=== PATIENT | male | born 1955 | race Hispanic/Latino ===

== ENCOUNTER 2017-10-18 16:18 | Emergency (ER) | payer MEDICARE ==
[2017-10-18 17:21] LABS: Basophils # (Auto) 0.1 K/mm3 (0.0-0.1); Basophils % (Auto) 1.1 % (0.0-1.8); Eosinophils # (Auto) 0.5 K/mm3 (0.0-0.4); Eosinophils % (Auto) 4.3 % (0.0-4.3); Hematocrit 40.3 % (35.5-45.6); Hemoglobin 13.3 gm/dl (11.8-15.2); Lymphocytes # (Auto) 2.2 K/mm3 (1.2-5.4); Lymphocytes % (Auto) 20.8 % (13.4-35.0); Mean Corpuscular HGB Conc 33 % (32-34); Mean Corpuscular Hemoglobin 29 pg (28-32); Mean Corpuscular Volume 88 fl (84-94); Monocytes % (Auto) 9.2 % (0.0-7.3); Platelet Count 308 K/mm3 (140-440); Red Blood Count 4.56 M/mm3 (3.65-5.03); Red Cell Distribution Width 13.7 % (13.2-15.2)
--- NOTE | 2017-10-18 17:21 | Emergency Department Report ---
ED Seizure HPI - General Chief Complaint: Seizure Stated Complaint: SEIZURE Time Seen by Provider: 10/18/17 17:08 Source: EMS, RN notes reviewed Mode of arrival: Stretcher Limitations: Altered Mental Status - History of Present Illness Initial Comments: 61 yo male who comes in today from the long term due to a seizure disorder. When asked about the seizure, the patient denies any seizures. He states that he is fine. He denies any complaints. MD Complaint: seizure -: This afternoon Witnessed:: Yes Trauma: No Seizure History: known seizure disorder Place: other (long term ) Possible Precipitating Event: none Associated Symptoms: denies other symptoms Treatments Prior to Arrival: none - Related Data Home Medications Medication Instructions Recorded Confirmed Last Taken Acetaminophen [Acetaminophen 8 650 mg PO Q6H PRN 10/18/17 10/18/17 Unknown Hour] Ondansetron [Zofran TAB] 4 mg PO Q8HR PRN 10/18/17 10/18/17 Unknown Previous Rx's Medication Instructions Recorded Last Taken Type levETIRAcetam [Keppra TAB] 1,000 mg PO BID #60 tab 10/06/17 Unknown Rx Docusate Sodium [Colace] 100 mg PO BID PRN #60 capsule 10/12/17 Unknown Rx Famotidine [Pepcid] 20 mg PO BID #30 tablet 10/12/17 Unknown Rx Polyethylene Glycol 3350 [Miralax 17 gm PO QDAY #60 packet 10/12/17 Unknown Rx 3350] hydrALAZINE [Apresoline TAB] 100 mg PO Q4HR PRN #60 tab 10/12/17 Unknown Rx Allergies Allergy/AdvReac Type Severity Reaction Status Date / Time Penicillins Allergy Unknown Verified 09/24/14 06:21 chocolate flavor AdvReac Rash Verified 10/07/14 16:47 peanut AdvReac Rash Verified 10/07/14 16:47 ED Review of Systems ROS: Stated complaint: SEIZURE Other details as noted in HPI Constitutional: denies: chills, fever Eyes: denies: eye pain, eye discharge, vision change ENT: denies: ear pain, throat pain Respiratory: denies: cough, shortness of breath, wheezing Cardiovascular: denies: chest pain, palpitations Endocrine: no symptoms reported Gastrointestinal: denies: abdominal pain, nausea, diarrhea Genitourinary: denies: urgency, dysuria Musculoskeletal: denies: back pain, joint swelling, arthralgia Skin: other (bruise-right forehead?) Neurological: denies: headache, weakness, paresthesias Psychiatric: denies: anxiety, depression Hematological/Lymphatic: denies: easy bleeding, easy bruising ED Past Medical Hx - Past Medical History Previous Medical History?: Yes Hx Hypertension: Yes Hx CVA: Yes (right sided weakness) Hx Deep Vein Thrombosis: No Hx Liver Disease: No Hx Renal Disease: No Hx Arthritis: Yes Hx Seizures: No Hx Asthma: Yes Hx COPD: Yes Additional medical history: Patient is not a good historian. Lives alone. Subdural hematoma - Surgical History Past Surgical History?: Yes Hx Pacemaker: No Hx Internal Defibrillator: No Additional Surgical History: craniotomy, tracheostomy - Social History Smoking Status: Never Smoker Substance Use Type: None - Medications Home Medications: Home Medications Medication Instructions Recorded Confirmed Last Taken Type levETIRAcetam [Keppra TAB] 1,000 mg PO BID #60 tab 10/06/17 10/18/17 Unknown Rx Docusate Sodium [Colace] 100 mg PO BID PRN #60 capsule 10/12/17 10/18/17 Unknown Rx Famotidine [Pepcid] 20 mg PO BID #30 tablet 10/12/17 10/18/17 Unknown Rx Polyethylene Glycol 3350 [Miralax 17 gm PO QDAY #60 packet 10/12/17 10/18/17 Unknown Rx 3350] hydrALAZINE [Apresoline TAB] 100 mg PO Q4HR PRN #60 tab 10/12/17 10/18/17 Unknown Rx Acetaminophen [Acetaminophen 8 650 mg PO Q6H PRN 10/18/17 10/18/17 Unknown History Hour] Ondansetron [Zofran TAB] 4 mg PO Q8HR PRN 10/18/17 10/18/17 Unknown History ED Physical Exam - General Limitations: Altered Mental Status General appearance: alert, in no apparent distress - Head Head exam: Present: other (bruising-forehead (acute vs chronic?)) - Eye Eye exam: Present: normal appearance - ENT ENT exam: Present: mucous membranes moist - Neck Neck exam: Present: normal inspection - Respiratory Respiratory exam: Present: normal lung sounds bilaterally. Absent: respiratory distress - Cardiovascular Cardiovascular Exam: Present: regular rate, normal rhythm. Absent: systolic murmur, diastolic murmur, rubs, gallop - GI/Abdominal GI/Abdominal exam: Present: soft - Extremities Exam Extremities exam: Present: normal inspection - Back Exam Back exam: Present: normal inspection - Neurological Exam Neurological exam: Present: alert - Psychiatric Psychiatric exam: Present: normal affect - Skin Skin exam: Present: warm ED Course Vital Signs 10/18/17 10/18/17 10/18/17 16:27 16:30 16:46 Temperature 98.1 F Pulse Rate 91 H 90 88 Respiratory 18 17 24 Rate Blood Pressure 102/57 Blood Pressure 102/57 [Left] O2 Sat by Pulse 94 94 94 Oximetry 10/18/17 10/18/17 10/18/17 17:00 17:16 17:30 Temperature Pulse Rate 94 H 88 84 Respiratory 31 H 25 H 24 Rate Blood Pressure 102/57 110/63 110/63 Blood Pressure [Left] O2 Sat by Pulse 94 95 96 Oximetry 10/18/17 10/18/17 10/18/17 17:46 18:00 18:05 Temperature Pulse Rate 85 87 Respiratory 22 22 18 Rate Blood Pressure 101/56 101/56 Blood Pressure [Left] O2 Sat by Pulse 95 93 Oximetry 10/18/17 10/18/17 10/18/17 18:16 18:30 18:46 Temperature Pulse Rate 84 80 78 Respiratory 22 23 20 Rate Blood Pressure 112/74 112/74 108/62 Blood Pressure [Left] O2 Sat by Pulse 95 95 96 Oximetry 10/18/17 19:00 Temperature Pulse Rate 77 Respiratory 22 Rate Blood Pressure 107/52 Blood Pressure [Left] O2 Sat by Pulse 96 Oximetry - Reevaluation(s) Reevaluation #1: 10/18/17 18:22 I spoke with the patient's caregivers. The patient is scheduled to see Neurology on Friday of next week. Suspect jerking activity isn't seizures. Suspect tics secondary to meds or brain injury. Back to assisted living after ivf's and keppra. ED Medical Decision Making - Lab Data Result diagrams: 10/18/17 17:08 10/18/17 17:08 - EKG Data -: EKG Interpreted by [facility] EKG shows normal: sinus rhythm Rate: normal (88) - EKG Data When compared to previous EKG there are: previous EKG unavailable Interpretation: nonspecific ST-T wave diana - Radiology Data Radiology results: report reviewed (No acute pathology ) - Medical Decision Making History of seizure disorder History of brain injury Tics/jerks? Hyponatremia - Differential Diagnosis History of seizure disorder, history of brain injury, tics/jerks, hyponatre Critical care attestation.: If time is entered above; I have spent that time in minutes in the direct care of this critically ill patient, excluding procedure time. ED Disposition Clinical Impression: Hyponatremia, Seizure disorder, Subdural hematoma Disposition: DC/TX-70 ANOTHER TYPE HLTHCARE Is pt being admited?: No Does the pt Need Aspirin: No Condition: Stable Instructions: Hyponatremia (ED), Recurrent Seizures Adult (ED) Additional Instructions: Please speak with the medical office clerk or patient's provider in regards to a medicine for the occasional tics vs jerks. My assessment is that the tics vs jerks aren't seizure related activity. Please make certain that the patient sees Neurology on next week. Follow up with your provider as scheduled. Referrals: DICK JOHNSON MD [Primary Care Provider] - 3-5 Days Time of Disposition: 19:46
[2017-10-18 17:52] LABS: Creatine Kinase MB 2.4 ng/mL (0.0-4.0)
[2017-10-18 17:53] LABS: Alanine Aminotransferase 18 units/L (7-56); Albumin 3.7 g/dL (3.9-5); BUN/Creatinine Ratio 18; Blood Urea Nitrogen 16 mg/dL (9-20); Calcium 8.2 mg/dL (8.4-10.2); Hemolysis Index 7
[2017-10-18] MEDS ORDERED: NACL 0.9% 500 ML 500 ML IV ONE (18:02)
[2017-10-18] MEDS ORDERED: KEPPRA 1,000 MG in NACL 0.9% 100 ML IV ONE (18:09)
--- NOTE | 2017-10-18 18:19 | XRay Report ---
FINAL REPORT EXAM: XR WRIST 3+V LT HISTORY: wrist deformity TECHNIQUE: AP, lateral, and oblique views of the left wrist PRIORS: None. FINDINGS: Significant erosion of the scaphoid and lunate bones is seen, probably posttraumatic. On the lateral view, the radius maintains articulation with the capitate but there is significant narrowing of the radiocarpal joint which are displaced in a volar direction. Overlying soft tissue swelling is seen. An IV is in place along the dorsal distal forearm. IMPRESSION: Deformity of the carpal bones, probably posttraumatic in etiology involving the scaphoid and lunate bones. There is significant narrowing of the radiocarpal joint with displacement of the distal row of carpals in the volar direction. CT may be of further help.
--- NOTE | 2017-10-18 18:21 | XRay Report ---
FINAL REPORT EXAM: XR CHEST 1V AP HISTORY: chest pain TECHNIQUE: AP portable view of the chest PRIORS: CXR 10/06/2017 FINDINGS: Lines, tubes, and devices: N/A Lungs and pleura: Trachea is normal in position. Elevation of the left hemidiaphragm is unchanged. Lungs are clear of infiltrate, pleural effusion, vascular congestion, or pneumothorax. No change. Cardiomediastinal silhouette: Cardiac and mediastinal silhouettes are unremarkable. Other: Bony structures are intact. IMPRESSION: No acute cardiopulmonary process seen. No change.
[2017-10-18] MEDS ORDERED: NACL 0.9% 1000 ML 1,000 ML IV ONE (18:24)
[2017-10-18] MEDS ORDERED: NACL 0.9% 1000 ML 1,000 ML ONE (18:24)
[2017-10-18] MEDS ORDERED: KEPPRA 1,000 MG/NS 0.75% 100ML 1,000 MG/100 ML BAG IV ONE (19:00)
[2017-10-18 19:06] VITALS: BP 107/52
== END 2017-10-18 20:00 | disposition other institution (70) ==
LOC: ED 16:18
DX: I62.00 Nontraumatic subdural hemorrhage, unspecified (principal); G40.909 Epilepsy, unspecified, not intractable, without status epilepticus; E87.1 Hypo-osmolality and hyponatremia; Z86.73 Personal history of transient ischemic attack (TIA), and cerebral infarction without residual deficits; J45.909 Unspecified asthma, uncomplicated; I10 Essential (primary) hypertension; Z88.0 Allergy status to penicillin; Z91.010 Allergy to peanuts; Z91.018 Allergy to other foods
CPT/HCPCS: 36415; 71045; 73110; 80053; 82550; 82553; 83735; 84484; 85025; 93005; 93010; 96374; 99285; J1953; J7030; 96365

== ENCOUNTER 2018-03-06 22:32 | Inpatient (IN) | payer MEDICARE ==
[2018-03-06] MEDS ORDERED: D50W (25GM) Vial IV ONE (22:45)
[2018-03-06] MEDS ORDERED: D50W (25GM) Syringe IV ONE (22:47)
[2018-03-06] MEDS ORDERED: KEPPRA 1,000 MG/NS 0.75% 100ML 1,000 MG/100 ML BAG IV ONE (22:59)
[2018-03-06] MEDS ORDERED: NACL 0.9% 500 ML 500 ML IV ONE (23:00)
--- NOTE | 2018-03-06 23:03 | Emergency Department Report ---
HPI - General Chief Complaint: Seizure Time Seen by Provider: 03/06/18 22:54 - HPI HPI: 62-year-old male presents to the emergency department by EMS from [facility] with complaint of seizures. The patient does have a history of previous seizures and is on Keppra. He had some seizure-like activity just as I got to the hospital and received 2 mg of Ativan. Patient does have a history of previous subdural hematoma. He has right-sided hemiparesis. Currently the patient is nonverbal for me and therefore is a poor historian. He was found have a blood sugar of 55 by EMS and was given some oral glucose. The blood sugar was only up to 60 when he arrived here. ED Past Medical Hx - Past Medical History Previous Medical History?: Yes Hx Hypertension: Yes Hx CVA: Yes (right sided weakness) Hx Deep Vein Thrombosis: No Hx Liver Disease: No Hx Renal Disease: No Hx Arthritis: Yes Hx Seizures: No Hx Asthma: Yes Hx COPD: Yes Additional medical history: Patient is not a good historian. Lives alone. Subdural hematoma - Surgical History Past Surgical History?: Yes Hx Pacemaker: No Hx Internal Defibrillator: No Additional Surgical History: craniotomy, tracheostomy - Social History Smoking Status: Never Smoker Substance Use Type: None - Medications Home Medications: Home Medications Medication Instructions Recorded Confirmed Last Taken Type levETIRAcetam [Keppra TAB] 1,000 mg PO BID #60 tab 10/06/17 10/18/17 Unknown Rx Docusate Sodium [Colace] 100 mg PO BID PRN #60 capsule 10/12/17 10/18/17 Unknown Rx Famotidine [Pepcid] 20 mg PO BID #30 tablet 10/12/17 10/18/17 Unknown Rx Polyethylene Glycol 3350 [Miralax 17 gm PO QDAY #60 packet 10/12/17 10/18/17 Unknown Rx 3350] hydrALAZINE [Apresoline TAB] 100 mg PO Q4HR PRN #60 tab 10/12/17 10/18/17 Unknown Rx Acetaminophen [Acetaminophen 8 650 mg PO Q6H PRN 10/18/17 10/18/17 Unknown History Hour] Ondansetron [Zofran TAB] 4 mg PO Q8HR PRN 10/18/17 10/18/17 Unknown History ED Review of Systems ROS: Stated complaint: CONVULSIONS Other details as noted in HPI Comment: Unobtainable due to pts medical conditions Physical Exam - Physical Exam Vital Signs: Vital Signs 03/06/18 22:49 Temperature 98.1 F Pulse Rate 126 H Respiratory 20 Rate Blood Pressure 106/70 O2 Sat by Pulse 96 Oximetry Physical Exam: GENERAL: Chronically debilitated. He is ill-appearing. HENT: Normocephalic. Atraumatic. Patient has moist mucous membranes. EYES: No current spontaneous eye opening. The left eye appears to be medially and superiorly deviated. NECK: Supple. Trachea is midline. CHEST/LUNGS: Coarse breath sounds. No tachypnea or accessory muscle use. There is no respiratory distress noted. HEART/CARDIOVASCULAR: Regular. There is mild to moderate tachycardia. There is no murmur. ABDOMEN: Abdomen is soft, nontender. Patient has normal bowel sounds. There is no abdominal distention. SKIN: Skin is warm and dry. NEURO: Patient has a consistent left leg tremor. He withdraws or reaches for painful stimuli but is currently nonverbal. MUSCULOSKELETAL: Chronic right-sided hemiplegia. Radial pulses +2 over 4 bilaterally. Cap refill less than 2 seconds. ED Course Vital Signs 03/06/18 22:49 Temperature 98.1 F Pulse Rate 126 H Respiratory 20 Rate Blood Pressure 106/70 O2 Sat by Pulse 96 Oximetry - Central Line Placement Right Femoral Consent Obtained: written consent (from brake operator) Time Out Performed: Yes Patient Placed on Monitor/Pulse Ox: Yes Prep: mask, gown, gloves Central Line Prep: Chlorhexidine scrub Ultrasound Used for Placement: Yes Central Line Lumen Inserted: triple Bloods Obtained for Lab: No Central Line Position: good blood return, sutured in place with nyl Dressing Applied: Tegaderm, sterile gauze/tape Patient Tolerated Procedure: well Complications: none ED Medical Decision Making - Lab Data Result diagrams: 03/06/18 23:13 03/07/18 04:40 - EKG Data -: EKG Interpreted by Me EKG shows normal: sinus rhythm, axis, intervals, QRS complexes, ST-T waves ( there is some nonspecific and/or mild ST depression to the anterior lateral leads) Rate: normal - EKG Data When compared to previous EKG there are: previous EKG unavailable Interpretation: other (sinus rhythm, normal axis, normal intervals, nonspecific ST-T waves to the anterolateral leads) - Radiology Data Radiology results: report reviewed PROCEDURE: XR CHEST 1V AP TECHNIQUE: Chest radiograph anteroposterior view. CPT 94805 HISTORY: seizures COMPARISON: No prior studies are available for comparison. FINDINGS: Heart: Normal. Mediastinum/Vessels: Normal. Lungs/Pleural space: Chronic obstructive pulmonary changes with mild fibrosis. Slight atelectasis left lower lung. There is some volume loss in the left lower lung.. Bony thorax: No acute osseous abnormality. Life support devices: None. IMPRESSION: Diffuse chronic obstructive changes. There is volume loss with slight atelectasis left lower lung.. Transcribed By: [facility] Dictated By: MECHELLE PRESTON MD Electronically Authenticated By: MECHELLE PRESTON MD Signed Date/Time: 03/06/18 6220 PROCEDURE: CT HEAD/BRAIN WO CON TECHNIQUE: Computerized tomography of the head was performed without contrast material. HISTORY: Seizure COMPARISON: No prior studies are available for comparison. FINDINGS: Skull and scalp: There is a large left temporal craniectomy.. Paranasal sinuses: Normal. Ventricles and subarachnoid spaces: The ventricles are enlarged globally. There is compensatory dilatation of the left lateral ventricle. Cerebrum: There is no evidence of acute intracranial hemorrhage or hematoma. There is encephalomalacia in the left frontal and temporal lobes consistent with old infarction. Moderate atrophy and slight periventricular deep white matter changes are noted.. Cerebellum and brainstem: No evidence of hemorrhage, acute infarction or mass. Vasculature: Normal. Comments: None. IMPRESSION: There is been previous large left temporal craniectomy. Large area and soft malacia in the left frontal and temporal lobes is noted. Moderate atrophy and slight periventricular deep white matter change. There is no evidence of an acute intracranial hemorrhage, hematoma or infarction. Transcribed By: [facility] Dictated By: MECHELLE PRESTON MD Electronically Authenticated By: MECHELLE PRESTON MD Signed Date/Time: 03/06/18 4178 - Medical Decision Making Patient presented after having seizures at his nursing facility and then one in route. Patient was mostly nonverbal but did move around to painful stimuli. Eventually his brake operator came by and says that he has not had his baseline mental status and that he is usually verbal and conversive. It may have been a prolonged postictal period or the Ativan that was given. He was loaded with some Keppra. CT of the head did not show any bleed, shift, mass or any acute process. Labs did not show any infectious etiology. Patient started having some hypotension and did not respond to IV fluid resuscitation. Therefore I placed a right femoral central line and the patient was started on pressors. He was reevaluated multiple times for multiple hours and he has started showing some improvement. However he will still require admission for further evaluation and treatment and he was accepted for admission by the hospitalist, Dr. Montemayor. - Differential Diagnosis seizure, TIA, CVA, brain bleed, sepsis Critical Care Time: No Critical care attestation.: If time is entered above; I have spent that time in minutes in the direct care of this critically ill patient, excluding procedure time. ED Disposition Clinical Impression: Seizure disorder, Hypoglycemia Hypotension Qualifiers: Hypotension type: unspecified hypotension type Qualified Code(s): I95.9 - Hypotension, unspecified Altered mental status Qualifiers: Altered mental status type: unspecified Qualified Code(s): R41.82 - Altered mental status, unspecified Disposition: -09 OP ADMIT IP TO THIS HOSP Is pt being admited?: Yes Condition: Fair Time of Disposition: 05:48
--- NOTE | 2018-03-06 23:24 | XRay Report ---
FINAL REPORT PROCEDURE: XR CHEST 1V AP TECHNIQUE: Chest radiograph anteroposterior view. CPT 64943 HISTORY: seizures COMPARISON: No prior studies are available for comparison. FINDINGS: Heart: Normal. Mediastinum/Vessels: Normal. Lungs/Pleural space: Chronic obstructive pulmonary changes with mild fibrosis. Slight atelectasis left lower lung. There is some volume loss in the left lower lung.. Bony thorax: No acute osseous abnormality. Life support devices: None. IMPRESSION: Diffuse chronic obstructive changes. There is volume loss with slight atelectasis left lower lung..
[2018-03-06 23:27] LABS: Basophils % (Auto) 0.9 % (0.0-1.8); Eosinophils # (Auto) 0.4 K/mm3 (0.0-0.4); Hematocrit 41.9 % (35.5-45.6); Hemoglobin 13.8 gm/dl (11.8-15.2); Lymphocytes # (Auto) 1.2 K/mm3 (1.2-5.4); Lymphocytes % (Auto) 23.2 % (13.4-35.0); Mean Corpuscular HGB Conc 33 % (32-34); Mean Corpuscular Hemoglobin 29 pg (28-32); Mean Corpuscular Volume 88 fl (84-94); Monocytes # (Auto) 0.5 K/mm3 (0.0-0.8); Monocytes % (Auto) 8.7 % (0.0-7.3); Platelet Count 202 K/mm3 (140-440); Red Blood Count 4.77 M/mm3 (3.65-5.03); Red Cell Distribution Width 15.6 % (13.2-15.2)
[2018-03-06 23:44] LABS: Alanine Aminotransferase 18 units/L (7-56); Albumin 3.8 g/dL (3.9-5); BUN/Creatinine Ratio 20; Blood Urea Nitrogen 16 mg/dL (9-20); Calcium 8.2 mg/dL (8.4-10.2); Hemolysis Index 4
--- NOTE | 2018-03-06 23:55 | Cat Scan Report ---
FINAL REPORT PROCEDURE: CT HEAD/BRAIN WO CON TECHNIQUE: Computerized tomography of the head was performed without contrast material. HISTORY: Seizure COMPARISON: No prior studies are available for comparison. FINDINGS: Skull and scalp: There is a large left temporal craniectomy.. Paranasal sinuses: Normal. Ventricles and subarachnoid spaces: The ventricles are enlarged globally. There is compensatory dilatation of the left lateral ventricle. Cerebrum: There is no evidence of acute intracranial hemorrhage or hematoma. There is encephalomalacia in the left frontal and temporal lobes consistent with old infarction. Moderate atrophy and slight periventricular deep white matter changes are noted.. Cerebellum and brainstem: No evidence of hemorrhage, acute infarction or mass. Vasculature: Normal. Comments: None. IMPRESSION: There is been previous large left temporal craniectomy. Large area and soft malacia in the left frontal and temporal lobes is noted. Moderate atrophy and slight periventricular deep white matter change. There is no evidence of an acute intracranial hemorrhage, hematoma or infarction.
[2018-03-07] MEDS ORDERED: LEVOPHED DRIP 4 MG/NS 250 ML 4 MG/250 ML BAG IV ONE (01:16)
[2018-03-07] MEDS ORDERED: LEVOPHED DRIP 4 MG/NS 250 ML 4 MG/250 ML BAG IV SCH (01:20)
[2018-03-07 02:31] LABS: Bilirubin,Urine NEG (Negative); Blood,Urine SM (Negative); Color,Urine Yellow (Yellow); Mucus,Urine FEW /HPF; Protein,Urine <15 mg/dL mg/dL (Negative); Urobilinogen,Urine < 2.0 mg/dL (<2.0)
[2018-03-07] MEDS ORDERED: ZOFRAN IV PRN (03:58)
[2018-03-07] MEDS ORDERED: SODIUM CHLORIDE FLUSH SYRINGE 10 ML IV PRN (03:58)
[2018-03-07] MEDS ORDERED: PERCOCET 5/325 PO PRN (03:58)
[2018-03-07] MEDS ORDERED: TYLENOL PO PRN (03:58)
[2018-03-07] MEDS ORDERED: MORPHINE IV PRN (03:58)
--- NOTE | 2018-03-07 03:58 | History and Physical Report ---
History of Present Illness Date of examination: 03/07/18 Date of admission: 03/07/18 Chief complaint: Seizures x2 History of present illness: AUDRA 62-year-old male presents to the emergency department by EMS from [facility] with complaint of seizures. The patient does have a history of previous seizures and is on Keppra. He had some seizure-like activity just as he got to the hospital and received 2 mg of Ativan. Patient does have a history of previous subdural hematoma. He has right-sided hemiparesis. Currently the patient is nonverbal for me and therefore is a poor historian. He was found have a blood sugar of 55 by EMS and was given some oral glucose. The blood sugar was only up to 60 when he arrived here.No fever or chills. Seizures X 2--witnessed Past Medical History Previous Medical History?: Yes Hx Hypertension: Yes Hx CVA: Yes (right sided weakness) Hx Arthritis: Yes Hx Seizures: yes Hx Asthma: Yes Hx COPD: Yes Additional medical history: Patient is not a good historian. Lives alone. Subdural hematoma Surgical History Past Surgical History?: Yes Additional Surgical History: craniotomy, tracheostomy - Social History Smoking Status: Never Smoker Substance Use Type: None - Medications Home Medications: Home Medications Medication Instructions Recorded Confirmed Last Taken Type levETIRAcetam [Keppra TAB] 1,000 mg PO BID #60 tab 10/06/17 10/18/17 Unknown Rx Docusate Sodium [Colace] 100 mg PO BID PRN #60 capsule 10/12/17 10/18/17 Unknown Rx Famotidine [Pepcid] 20 mg PO BID #30 tablet 10/12/17 10/18/17 Unknown Rx Polyethylene Glycol 3350 [Miralax 17 gm PO QDAY #60 packet 10/12/17 10/18/17 Unknown Rx 3350] hydrALAZINE [Apresoline TAB] 100 mg PO Q4HR PRN #60 tab 10/12/17 10/18/17 Unknown Rx Acetaminophen [Acetaminophen 8 650 mg PO Q6H PRN 10/18/17 10/18/17 Unknown History Hour] Ondansetron [Zofran TAB] 4 mg PO Q8HR PRN 10/18/17 10/18/17 Unknown History Review of Systems ROS: Stated complaint: CONVULSIONS Other details as noted in HPI Comment: Unobtainable due to pts medical conditions Medications and Allergies Allergies Allergy/AdvReac Type Severity Reaction Status Date / Time Penicillins Allergy Unknown Verified 03/06/18 22:49 chocolate flavor AdvReac Rash Verified 03/06/18 22:49 peanut AdvReac Rash Verified 03/06/18 22:49 Home Medications Medication Instructions Recorded Confirmed Last Taken Type levETIRAcetam [Keppra TAB] 1,000 mg PO BID #60 tab 10/06/17 10/18/17 Unknown Rx Docusate Sodium [Colace] 100 mg PO BID PRN #60 capsule 10/12/17 10/18/17 Unknown Rx Famotidine [Pepcid] 20 mg PO BID #30 tablet 10/12/17 10/18/17 Unknown Rx Polyethylene Glycol 3350 [Miralax 17 gm PO QDAY #60 packet 10/12/17 10/18/17 Unknown Rx 3350] hydrALAZINE [Apresoline TAB] 100 mg PO Q4HR PRN #60 tab 10/12/17 10/18/17 Unknown Rx Acetaminophen [Acetaminophen 8 650 mg PO Q6H PRN 10/18/17 10/18/17 Unknown History Hour] Ondansetron [Zofran TAB] 4 mg PO Q8HR PRN 10/18/17 10/18/17 Unknown History Active Meds: Active Medications Norepinephrine (Levophed Drip 4 Mg/Ns 250 Ml) 4 mg in 250 mls @ 7.5 mls/hr IV TITR BRYCE; Protocol Last Admin: 03/07/18 01:25 Dose: 4 mcg/min, 15 mls/hr Exam - Constitutional Vitals: Temp Pulse Resp BP Pulse Ox 98.6 F 69 14 116/59 90 03/07/18 02:05 03/07/18 03:15 03/07/18 03:15 03/07/18 03:15 03/07/18 02:15 General appearance: Present: no acute distress, well-nourished - EENT Eyes: Present: PERRL ENT: hearing intact, clear oral mucosa - Neck Neck: Present: supple, normal ROM - Respiratory Respiratory effort: normal Respiratory: bilateral: CTA - Cardiovascular Heart rate: 70 Rhythm: regular Heart Sounds: Present: S1 & S2. Absent: rub, click - Extremities Extremities: no ischemia, pulses intact, pulses symmetrical, No edema Peripheral Pulses: within normal limits - Abdominal General gastrointestinal: Present: soft, non-tender, non-distended, normal bowel sounds Male genitourinary: Present: normal - Integumentary Integumentary: Present: clear, warm, dry - Musculoskeletal Musculoskeletal: right sided weakness, generalized weakness - Psychiatric Psychiatric: appropriate mood/affect, intact judgment & insight - Neurologic Neurologic: CNII-XII intact, focal deficits (Rt Hemiplegia with contractures in Hand) - Allied Health Allied health notes reviewed: nursing, case management Results - Labs CBC & Chem 7: 03/06/18 23:13 03/07/18 04:40 Labs: Laboratory Last Values WBC 5.4 K/mm3 (4.5-11.0) 03/06/18 23:13 RBC 4.77 M/mm3 (3.65-5.03) 03/06/18 23:13 Hgb 13.8 gm/dl (11.8-15.2) 03/06/18 23:13 Hct 41.9 % (35.5-45.6) 03/06/18 23:13 MCV 88 fl (84-94) 03/06/18 23:13 MCH 29 pg (28-32) 03/06/18 23:13 MCHC 33 % (32-34) 03/06/18 23:13 RDW 15.6 % (13.2-15.2) H 03/06/18 23:13 Plt Count 202 K/mm3 (140-440) 03/06/18 23:13 Lymph % (Auto) 23.2 % (13.4-35.0) 03/06/18 23:13 [place] % (Auto) 8.7 % (0.0-7.3) H 03/06/18 23:13 Eos % (Auto) 7.0 % (0.0-4.3) H 03/06/18 23:13 Baso % (Auto) 0.9 % (0.0-1.8) 03/06/18 23:13 Lymph # 1.2 K/mm3 (1.2-5.4) 03/06/18 23:13 [place] # 0.5 K/mm3 (0.0-0.8) 03/06/18 23:13 Eos # 0.4 K/mm3 (0.0-0.4) 03/06/18 23:13 Baso # 0.0 K/mm3 (0.0-0.1) 03/06/18 23:13 Seg Neutrophils % 60.2 % (40.0-70.0) 03/06/18 23:13 Seg Neutrophils # 3.2 K/mm3 (1.8-7.7) 03/06/18 23:13 Sodium 141 mmol/L (137-145) 03/06/18 23:13 Potassium 4.3 mmol/L (3.6-5.0) 03/06/18 23:13 Chloride 104.5 mmol/L (98-107) 03/06/18 23:13 Carbon Dioxide 25 mmol/L (22-30) 03/06/18 23:13 Anion Gap 16 mmol/L 03/06/18 23:13 BUN 16 mg/dL (9-20) 03/06/18 23:13 Creatinine 0.8 mg/dL (0.8-1.5) 03/06/18 23:13 Estimated GFR > 60 ml/min 03/06/18 23:13 BUN/Creatinine Ratio 20 % 03/06/18 23:13 Glucose 157 mg/dL (75-100) H 03/06/18 23:13 POC Glucose 127 (70-105) H 03/07/18 00:09 Lactic Acid 1.20 mmol/L (0.7-2.0) 03/07/18 00:50 Calcium 8.2 mg/dL (8.4-10.2) L 03/06/18 23:13 Magnesium 1.80 mg/dL (1.7-2.3) 03/06/18 23:13 Total Bilirubin 0.20 mg/dL (0.1-1.2) 03/06/18 23:13 AST 29 units/L (5-40) 03/06/18 23:13 ALT 18 units/L (7-56) 03/06/18 23:13 Alkaline Phosphatase 100 units/L (35-129) 03/06/18 23:13 Total Creatine Kinase 313 units/L (55-170) H 03/06/18 23:13 Total Protein 5.9 g/dL (6.3-8.2) L 03/06/18 23:13 Albumin 3.8 g/dL (3.9-5) L 03/06/18 23:13 Albumin/Globulin Ratio 1.8 % 03/06/18 23:13 Urine Color Yellow (Yellow) 03/07/18 02:05 Urine Turbidity Clear (Clear) 03/07/18 02:05 Urine pH 5.0 (5.0-7.0) 03/07/18 02:05 Ur Specific [place] 1.015 (1.003-1.030) 03/07/18 02:05 Urine Protein <15 mg/dl mg/dL (Negative) 03/07/18 02:05 Urine Glucose (UA) 50 mg/dL (Negative) 03/07/18 02:05 Urine Ketones Neg mg/dL (Negative) 03/07/18 02:05 Urine Blood Sm (Negative) 03/07/18 02:05 Urine Nitrite Neg (Negative) 03/07/18 02:05 Urine Bilirubin Neg (Negative) 03/07/18 02:05 Urine Urobilinogen < 2.0 mg/dL (<2.0) 03/07/18 02:05 Ur Leukocyte Esterase Neg (Negative) 03/07/18 02:05 Urine WBC (Auto) 1.0 /HPF (0.0-6.0) 03/07/18 02:05 Urine RBC (Auto) 4.0 /HPF (0.0-6.0) 03/07/18 02:05 U Epithel Cells (Auto) 1.0 /HPF (0-13.0) 03/07/18 02:05 Urine Mucus Few /HPF 03/07/18 02:05 Short CBC 03/06/18 Range/Units 23:13 WBC 5.4 (4.5-11.0) K/mm3 Hgb 13.8 (11.8-15.2) gm/dl Hct 41.9 (35.5-45.6) % Plt Count 202 (140-440) K/mm3 BMP 03/06/18 03/07/18 23:13 04:40 Sodium 141 143 Potassium 4.3 4.2 Chloride 104.5 106.6 Carbon Dioxide 25 27 BUN 16 15 Creatinine 0.8 0.7 L Glucose 157 H 85 Calcium 8.2 L 7.9 L Cardiac Enzymes 03/06/18 Range/Units 23:13 Total Creatine Kinase 313 H (55-170) units/L Liver Function 03/06/18 Range/Units 23:13 Total Bilirubin 0.20 (0.1-1.2) mg/dL AST 29 (5-40) units/L ALT 18 (7-56) units/L Alkaline Phosphatase 100 (35-129) units/L Albumin 3.8 L (3.9-5) g/dL Urine 03/07/18 Range/Units 02:05 Urine Color Yellow (Yellow) Urine pH 5.0 (5.0-7.0) Ur Specific [place] 1.015 (1.003-1.030) Urine Protein <15 mg/dl (Negative) mg/dL Urine Glucose (UA) 50 (Negative) mg/dL Assessment and Plan Advance Directives: Yes (Not known) VTE prophylaxis?: Chemical Plan of care discussed with patient/family: Yes - Patient Problems (1) Acute encephalopathy Current Visit: Yes Status: Acute Plan to address problem: Sec to seizure disorder (2) Altered mental status Current Visit: Yes Status: Acute Qualifiers: Altered mental status type: unspecified Qualified Code(s): R41.82 - Altered mental status, unspecified Plan to address problem: Etio unclear Possible postictal state (3) Hypoglycemia Current Visit: Yes Status: Acute Plan to address problem: Corrected Prevet further episodes of Hypoglycemia (4) Hypotension Current Visit: Yes Status: Acute Qualifiers: Hypotension type: unspecified hypotension type Qualified Code(s): I95.9 - Hypotension, unspecified Plan to address problem: Etio unclear On Levophed drip (5) Seizure disorder Current Visit: Yes Status: Acute Plan to address problem: Cont IV keppra Transition to PO Keppra (6) DVT prophylaxis Current Visit: No Status: Acute Plan to address problem: On Heparin
[2018-03-07] MEDS ORDERED: APRESOLINE PO PRN (04:04)
[2018-03-07] MEDS ORDERED: ACETAMINOPHEN 650 MG PO PRN (04:04)
[2018-03-07] MEDS ORDERED: ZOFRAN PO PRN (04:04)
[2018-03-07] MEDS ORDERED: COLACE PO PRN (04:04)
[2018-03-07 05:13] LABS: BUN/Creatinine Ratio 21; Blood Urea Nitrogen 15 mg/dL (9-20); Calcium 7.9 mg/dL (8.4-10.2); Hemolysis Index 4
[2018-03-07] MEDS ORDERED: HEPARIN ONE (05:28)
[2018-03-07] MEDS ORDERED: D5NS 1,000 ML IV ONE (05:28)
[2018-03-07] MEDS: HEPARIN SUB-Q SCH ×2 (05:35→21:05)
[2018-03-07] MEDS: D5NS 1,000 ML IV SCH ×2 (05:45→16:12)
[2018-03-07] MEDS ORDERED: NON-FORMULARY (Levetiracetam [Keppra Tab] 1,000 MG) PO SCH (10:00)
[2018-03-07] MEDS ORDERED: PEPCID PO SCH (10:00)
--- NOTE | 2018-03-07 10:06 | Progress Note ---
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 He was found to be hypoglycemic (he doesn' t have a history of DM), BG was 55 and hypotensive which did not respond to IV fluid resuscitation; therefore, right femoral central line placed and Levophed IV drip started and admitted to ICU. Food Dehydrator Operator, Mr. Jain says that he has not had his baseline mental status and that he is usually verbal and conversive. * pCXR IMPRESSION: Diffuse chronic obstructive changes. There is volume loss with slight atelectasis left lower lung. * CT HEAD/BRAIN WO CON IMPRESSION: There is been previous large left temporal craniectomy. Large area and soft malacia in the left frontal and temporal lobes is noted. Moderate atrophy and slight periventricular deep white matter change. There is no evidence of an acute intracranial hemorrhage, hematoma or infarction. -Acute encephalopathy due to seizures and hypotension: continue to treat the sz and low bp -Hypoglycemia: treat with iv dextrose additive and repeat levels, check A1C -Hypotension with hypovolemic shock: On Levophed drip down to 3 mcg, on D5NS at 100 ml/hr, trying to wean off Levophed -Intractable Seizures: Cont IV keppra, Transition to PO Keppra, prn iv Ativan -Right groin TLC day 2: I have asked the nurse to place condom catheter, due to right groin saturated with urine around TLC -DVT prophylaxis: On Heparin CCT 32 minutes History Interval history: Patient was seen and examined. Follow-up on current diagnosis on sz and hypotension. Overnight uneventful. Patient denies any chest pain, shortness breath, nausea/vomiting or severe headaches. Imaging, nursing note, chart, labs and old chart reviewed. Discussed with patient and caregiver, Mr. Jain at bedside. Hospitalist Physical - Physical exam Narrative exam: GEN: chronic debiliated, NAD, Awake, Alert, Orientated HEENT: not normal cephalic with craniotomy scar/skull on the left, disjoined extramolar on the left, wondering left eye, OP Clear NECK: supple, no adenopathy, no thyromegaly, no JVD CVS/HEART: RRR, normal S1S2, pulses present bilaterally CHEST/LUNGS: CTA B, Symmetrical chest expansion, good air entry bilaterally GI/Abdomen: soft, NTND, good bowel sounds, no guarding or rebound /Bladder: no suprapubic tenderness, no CVA or paraspinal tenderness EXT/Skin: no c/c/e, + obvious red rash left knuckle/hand and petechiae down the right leg to foot, mmm dry MSK: right hemiparesis Neuro: CN 2-12 grossly intact, no new focal deficits Psych: calm - Constitutional Vitals: Temp Pulse Resp BP Pulse Ox 97.5 F L 83 14 117/57 84 03/07/18 08:00 03/07/18 05:30 03/07/18 05:30 03/07/18 05:30 03/07/18 05:30 General appearance: Present: no acute distress, well-nourished Results - Labs CBC & Chem 7: 03/06/18 23:13 03/07/18 04:40 Labs: Laboratory Last Values WBC 5.4 K/mm3 (4.5-11.0) 03/06/18 23:13 RBC 4.77 M/mm3 (3.65-5.03) 03/06/18 23:13 Hgb 13.8 gm/dl (11.8-15.2) 03/06/18 23:13 Hct 41.9 % (35.5-45.6) 03/06/18 23:13 MCV 88 fl (84-94) 03/06/18 23:13 MCH 29 pg (28-32) 03/06/18 23:13 MCHC 33 % (32-34) 03/06/18 23:13 RDW 15.6 % (13.2-15.2) H 03/06/18 23:13 Plt Count 202 K/mm3 (140-440) 03/06/18 23:13 Lymph % (Auto) 23.2 % (13.4-35.0) 03/06/18 23:13 [place] % (Auto) 8.7 % (0.0-7.3) H 03/06/18 23:13 Eos % (Auto) 7.0 % (0.0-4.3) H 03/06/18 23:13 Baso % (Auto) 0.9 % (0.0-1.8) 03/06/18 23:13 Lymph # 1.2 K/mm3 (1.2-5.4) 03/06/18 23:13 [place] # 0.5 K/mm3 (0.0-0.8) 03/06/18 23:13 Eos # 0.4 K/mm3 (0.0-0.4) 03/06/18 23:13 Baso # 0.0 K/mm3 (0.0-0.1) 03/06/18 23:13 Seg Neutrophils % 60.2 % (40.0-70.0) 03/06/18 23:13 Seg Neutrophils # 3.2 K/mm3 (1.8-7.7) 03/06/18 23:13 Sodium 143 mmol/L (137-145) 03/07/18 04:40 Potassium 4.2 mmol/L (3.6-5.0) 03/07/18 04:40 Chloride 106.6 mmol/L (98-107) 03/07/18 04:40 Carbon Dioxide 27 mmol/L (22-30) 03/07/18 04:40 Anion Gap 14 mmol/L 03/07/18 04:40 BUN 15 mg/dL (9-20) 03/07/18 04:40 Creatinine 0.7 mg/dL (0.8-1.5) L 03/07/18 04:40 Estimated GFR > 60 ml/min 03/07/18 04:40 BUN/Creatinine Ratio 21 % 03/07/18 04:40 Glucose 85 mg/dL (75-100) 03/07/18 04:40 POC Glucose 127 (70-105) H 03/07/18 00:09 Hemoglobin A1c 5.6 % (4-6) 03/07/18 04:40 Lactic Acid 1.20 mmol/L (0.7-2.0) 03/07/18 00:50 Calcium 7.9 mg/dL (8.4-10.2) L 03/07/18 04:40 Magnesium 1.80 mg/dL (1.7-2.3) 03/06/18 23:13 Total Bilirubin 0.20 mg/dL (0.1-1.2) 03/06/18 23:13 AST 29 units/L (5-40) 03/06/18 23:13 ALT 18 units/L (7-56) 03/06/18 23:13 Alkaline Phosphatase 100 units/L (35-129) 03/06/18 23:13 Total Creatine Kinase 313 units/L (55-170) H 03/06/18 23:13 Total Protein 5.9 g/dL (6.3-8.2) L 03/06/18 23:13 Albumin 3.8 g/dL (3.9-5) L 03/06/18 23:13 Albumin/Globulin Ratio 1.8 % 03/06/18 23:13 Urine Color Yellow (Yellow) 03/07/18 02:05 Urine Turbidity Clear (Clear) 03/07/18 02:05 Urine pH 5.0 (5.0-7.0) 03/07/18 02:05 Ur Specific [place] 1.015 (1.003-1.030) 03/07/18 02:05 Urine Protein <15 mg/dl mg/dL (Negative) 03/07/18 02:05 Urine Glucose (UA) 50 mg/dL (Negative) 03/07/18 02:05 Urine Ketones Neg mg/dL (Negative) 03/07/18 02:05 Urine Blood Sm (Negative) 03/07/18 02:05 Urine Nitrite Neg (Negative) 03/07/18 02:05 Urine Bilirubin Neg (Negative) 03/07/18 02:05 Urine Urobilinogen < 2.0 mg/dL (<2.0) 03/07/18 02:05 Ur Leukocyte Esterase Neg (Negative) 03/07/18 02:05 Urine WBC (Auto) 1.0 /HPF (0.0-6.0) 03/07/18 02:05 Urine RBC (Auto) 4.0 /HPF (0.0-6.0) 03/07/18 02:05 U Epithel Cells (Auto) 1.0 /HPF (0-13.0) 03/07/18 02:05 Urine Mucus Few /HPF 03/07/18 02:05
[2018-03-07] MEDS: KEPPRA 750 MG in NACL 0.9% 100 ML IV SCH ×2 (11:15→21:05)
[2018-03-07] MEDS: PEPCID IV SCH ×2 (11:16→21:06)
[2018-03-07] MEDS: MIRALAX 3350 PO SCH (11:16)
[2018-03-07] MEDS: SODIUM CHLORIDE FLUSH SYRINGE 10 ML IV SCH ×2 (11:17→21:06)
[2018-03-07] MEDS ORDERED: NACL 0.9% 1000 ML 1,000 ML IV ONE (12:03)
[2018-03-07] MEDS ORDERED: ATIVAN IV PRN (12:12)
--- NOTE | 2018-03-07 12:13 | Consultation ---
History of Present Illness - Reason for Consult Consult date: 03/07/18 Hypotension Requesting physician: ARTURO JAIMES - History of Present Illness 62 y/o white male with known history of seizure, custodial resident, admitted with seizure activity and hypotension. Found to be hypoglycemic in the ED but not altered. Was post-ictal after the seizure but prior to that, per report at baseline. Scalp Specialist at bedside. States patient has never had any issues with blood sugar or blood pressure. Eats well and has been eating well. No changes in meds recently. They did increase his keppra dose about 3 months ago per the oleomargarine maker. Otherwise remainder of the review is negative. Past History Past Medical History: GERD, hypertension, seizures Past Surgical History: Other Social history: no significant social history Family history: no significant family history Medications and Allergies Allergies Allergy/AdvReac Type Severity Reaction Status Date / Time Penicillins Allergy Unknown Verified 03/06/18 22:49 chocolate flavor AdvReac Rash Verified 03/06/18 22:49 peanut AdvReac Rash Verified 03/06/18 22:49 Home Medications Medication Instructions Recorded Confirmed Last Taken Type levETIRAcetam [Keppra TAB] 1,000 mg PO BID #60 tab 10/06/17 03/07/18 03/05/18 Rx Docusate Sodium [Colace] 100 mg PO BID PRN #60 capsule 10/12/17 03/07/18 Unknown Rx Famotidine [Pepcid] 20 mg PO BID #30 tablet 10/12/17 03/07/18 03/06/18 Rx Polyethylene Glycol 3350 [Miralax 17 gm PO QDAY #60 packet 10/12/17 03/07/1805/16 Rx 3350] hydrALAZINE [Apresoline TAB] 100 mg PO Q4HR PRN #60 tab 10/12/17 03/07/18 Unknown Rx Acetaminophen [Acetaminophen 8 650 mg PO Q6H PRN 10/18/17 03/07/18 Unknown History Hour] Ondansetron [Zofran TAB] 4 mg PO Q8HR PRN 10/18/17 03/07/18 Unknown History Dulcolax tab 10 mg PO DAILY PRN 03/07/18 03/07/18 Unknown History Promethazine 25 mg PO Q4H PRN 03/07/18 03/07/18 Unknown History Transderm-Scop 1.5 mg TD Q3D PRN 03/07/18 03/07/18 Unknown History Active Meds: Active Medications Acetaminophen (Tylenol) 650 mg PO Q4H PRN PRN Reason: Pain MILD(1-3)/Fever >100.5/[place] Docusate Sodium (Colace) 100 mg PO BID PRN PRN Reason: Bowel Movement Famotidine (Pepcid) 20 mg IV BID [facility] Last Admin: 03/07/18 11:16 Dose: 20 mg Heparin Sodium (Porcine) (Heparin) 5,000 unit SUB-Q Q12HR [facility] Last Admin: 03/07/18 05:35 Dose: 5,000 unit Hydralazine HCl (Apresoline) 100 mg PO Q4HR PRN PRN Reason: Hypertension Norepinephrine (Levophed Drip 4 Mg/Ns 250 Ml) 4 mg in 250 mls @ 7.5 mls/hr IV TITR [facility]; Protocol Last Admin: 03/07/18 01:25 Dose: 4 mcg/min, 15 mls/hr Dextrose/Sodium Chloride (D5ns) 1,000 mls @ 100 mls/hr IV DIRECT [facility] Last Admin: 03/07/18 05:45 Dose: 100 mls/hr Levetiracetam 750 mg/ Sodium (Chloride) 107.5 mls @ 400 mls/hr IV Q12HR [facility] Last Admin: 03/07/18 11:15 Dose: 400 mls/hr Sodium Chloride (Nacl 0.9% 1000 Ml) 1,000 mls @ 999 mls/hr IV BOLUS ONE Stop: 03/07/18 13:03 Morphine Sulfate (Morphine) 2 mg IV Q4H PRN PRN Reason: Pain, Moderate (4-6) Ondansetron HCl (Zofran) 4 mg IV Q8H PRN PRN Reason: Nausea And Vomiting Oxycodone/Acetaminophen (Percocet 5/325) 1 tab PO Q6H PRN PRN Reason: Pain, Moderate (4-6) Polyethylene Glycol (Miralax 3350) 17 gm PO QDAY [facility] Last Admin: 03/07/18 11:16 Dose: 17 gm Sodium Chloride (Sodium Chloride Flush Syringe 10 Ml) 10 ml IV BID [facility] Last Admin: 03/07/18 11:17 Dose: 10 ml Sodium Chloride (Sodium Chloride Flush Syringe 10 Ml) 10 ml IV PRN PRN PRN Reason: LINE FLUSH Review of Systems All systems: negative Exam - Constitutional Vitals: Temp Pulse Resp BP Pulse Ox 97.5 F L 83 14 117/57 84 03/07/18 08:00 03/07/18 05:30 03/07/18 05:30 03/07/18 05:30 03/07/18 05:30 General appearance: Present: no acute distress, other (syndrome appearance) - EENT Eyes: Present: irregular pupil ENT: hearing intact - Neck Neck: Present: supple, normal ROM - Respiratory Respiratory effort: normal Respiratory: bilateral: rales - Cardiovascular Rhythm: regular Heart Sounds: Present: S1 & S2 - Extremities Extremities: no ischemia - Abdominal General gastrointestinal: Present: soft, non-tender, normal bowel sounds Male genitourinary: Present: deferred - Rectal Rectal Exam: deferred - Integumentary Integumentary: Present: clear, warm, dry Results - Labs CBC & Chem 7: 03/06/18 23:13 03/07/18 04:40 Labs: Abnormal lab results 03/06/18 03/06/18 03/06/18 Range/Units 22:50 23:13 23:13 RDW 15.6 H (13.2-15.2) % [place] % (Auto) 8.7 H (0.0-7.3) % Eos % (Auto) 7.0 H (0.0-4.3) % Creatinine (0.8-1.5) mg/dL Glucose 157 H (75-100) mg/dL POC Glucose 60 L (70-105) Calcium 8.2 L (8.4-10.2) mg/dL Total Creatine Kinase 313 H (55-170) units/L Total Protein 5.9 L (6.3-8.2) g/dL Albumin 3.8 L (3.9-5) g/dL 03/07/18 03/07/18 03/07/18 Range/Units 00:09 04:40 11:28 RDW (13.2-15.2) % [place] % (Auto) (0.0-7.3) % Eos % (Auto) (0.0-4.3) % Creatinine 0.7 L (0.8-1.5) mg/dL Glucose (75-100) mg/dL POC Glucose 127 H 129 H (70-105) Calcium 7.9 L (8.4-10.2) mg/dL Total Creatine Kinase (55-170) units/L Total Protein (6.3-8.2) g/dL Albumin (3.9-5) g/dL - Imaging and Cardiology Chest x-ray: image reviewed (chronic interstitial changes. Agree with possible left lower lobe atelectasis) Assessment and Plan 62 y/o male with known seizure activity admitted with seizure, hypotension and hypoglycemia, the latter two of unknown origin. 1. Will give another liter bolus now 2. continue D5W with eating as sugar is still normal, should be higher 3. Checking Thyroid studies and C-Peptide levels 4. Wean Pressors for MAPs >60 5. q4 hour FSBS 6. Will continue ICU monitoring CCT 31 minutes
[2018-03-07 13:55] LABS: Free T4 (Free Thyroxine) 1.01 ng/dL (0.76-1.46)
[2018-03-07] MEDS ORDERED: NACL 0.9% 1000 ML 1,000 ML ONE (15:43)
[2018-03-08 05:19] LABS: Basophils % (Auto) 0.7 % (0.0-1.8); Eosinophils # (Auto) 0.4 K/mm3 (0.0-0.4); Eosinophils % (Auto) 7.2 % (0.0-4.3); Hematocrit 39.8 % (35.5-45.6); Hemoglobin 13.5 gm/dl (11.8-15.2); Lymphocytes # (Auto) 1.8 K/mm3 (1.2-5.4); Lymphocytes % (Auto) 29.3 % (13.4-35.0); Mean Corpuscular HGB Conc 34 % (32-34); Mean Corpuscular Hemoglobin 30 pg (28-32); Mean Corpuscular Volume 88 fl (84-94); Monocytes # (Auto) 0.7 K/mm3 (0.0-0.8); Monocytes % (Auto) 11.4 % (0.0-7.3); Platelet Count 190 K/mm3 (140-440); Red Blood Count 4.51 M/mm3 (3.65-5.03); Red Cell Distribution Width 15.3 % (13.2-15.2)
[2018-03-08 05:43] LABS: Alanine Aminotransferase 15 units/L (7-56); Albumin 3.5 g/dL (3.9-5); BUN/Creatinine Ratio 15; Blood Urea Nitrogen 9 mg/dL (9-20); Hemolysis Index 12
--- NOTE | 2018-03-08 07:19 | Progress Note ---
Assessment and Plan 62 y/o male with known seizure activity admitted with seizure, hypotension and hypoglycemia, the latter two of unknown origin. 1. No further fluid boluses at this time. 2. Random cortisol is send out her but will order now and then start patient on Stress dose steroids. Could have relative adrenal insufficiency but unsure of the cause. 3. Thyroids were normal, C-Peptide pending as this is a send out. 4. Wean Pressors for MAPs >60 5. q4 hour FSBS 6. Will continue ICU monitoring, weaning vasopressor therapy. steroids will hopefully help blood sugar and blood pressure. CCT 31 minutes Subjective Date of service: 03/08/18 Interval history: No acute events. Patient still on levophed at 2 but all MAPS recorded in system are in the high 80's. Awake and alert. States that he is hungry. [place] not at bedside yet. Objective - Constitutional Vitals: Vital Signs - 12hr 03/07/18 03/07/18 03/07/18 19:21 19:31 19:41 Temperature 98 F Pulse Rate 67 75 65 Respiratory 15 14 16 Rate Blood Pressure 100/74 106/67 106/67 O2 Sat by Pulse 100 100 100 Oximetry 03/07/18 03/07/18 03/07/18 19:51 20:00 20:13 Temperature Pulse Rate 60 64 65 Respiratory 15 16 17 Rate Blood Pressure 102/64 106/68 O2 Sat by Pulse 100 100 100 Oximetry 03/07/18 03/07/18 03/07/18 20:21 20:31 20:41 Temperature Pulse Rate 62 58 L 62 Respiratory 17 15 11 L Rate Blood Pressure 93/68 106/68 106/68 O2 Sat by Pulse 100 100 100 Oximetry 03/07/18 03/07/18 03/07/18 20:47 20:51 21:00 Temperature Pulse Rate 60 58 L Respiratory 15 15 Rate Blood Pressure 107/60 107/60 O2 Sat by Pulse 98 100 100 Oximetry 03/07/18 03/07/18 03/07/18 21:11 21:21 21:30 Temperature Pulse Rate 63 63 62 Respiratory 17 17 15 Rate Blood Pressure 107/60 107/60 117/66 O2 Sat by Pulse 100 99 Oximetry 03/07/18 03/07/18 03/07/18 21:41 21:51 21:56 Temperature Pulse Rate 62 60 64 Respiratory 15 14 16 Rate Blood Pressure 107/60 107/60 117/66 O2 Sat by Pulse 99 99 98 Oximetry 03/07/18 03/07/18 03/07/18 22:00 22:07 22:11 Temperature Pulse Rate 60 58 L 66 Respiratory 15 15 15 Rate Blood Pressure 113/66 113/66 113/66 O2 Sat by Pulse 98 98 99 Oximetry 03/07/18 03/07/18 03/07/18 22:21 22:31 22:41 Temperature Pulse Rate 53 L 54 L 59 L Respiratory 14 15 15 Rate Blood Pressure 113/66 113/66 113/66 O2 Sat by Pulse 98 98 99 Oximetry 03/07/18 03/07/18 03/07/18 22:51 23:01 23:11 Temperature Pulse Rate 56 L 59 L 60 Respiratory 14 15 15 Rate Blood Pressure 113/66 113/66 113/66 O2 Sat by Pulse 98 99 99 Oximetry 03/07/18 03/07/18 03/07/18 23:18 23:21 23:31 Temperature 98.5 F Pulse Rate 73 64 Respiratory 16 13 Rate Blood Pressure 113/66 113/66 O2 Sat by Pulse 99 99 Oximetry 03/07/18 03/07/18 03/08/18 23:41 23:51 00:01 Temperature Pulse Rate 65 64 55 L Respiratory 14 13 14 Rate Blood Pressure 113/66 113/66 113/66 O2 Sat by Pulse 99 98 98 Oximetry 03/08/18 03/08/18 03/08/18 00:11 00:21 00:30 Temperature Pulse Rate 56 L 58 L 52 L Respiratory 14 15 14 Rate Blood Pressure 113/66 111/69 106/60 O2 Sat by Pulse 99 98 98 Oximetry 03/08/18 03/08/18 03/08/18 00:41 00:51 01:00 Temperature Pulse Rate 45 L 52 L 52 L Respiratory 15 13 15 Rate Blood Pressure 106/60 106/60 100/53 O2 Sat by Pulse 99 98 97 Oximetry 03/08/18 03/08/18 03/08/18 01:11 01:21 01:31 Temperature Pulse Rate 55 L 60 54 L Respiratory 14 14 14 Rate Blood Pressure 100/53 100/53 85/45 O2 Sat by Pulse 98 98 96 Oximetry 03/08/18 03/08/18 03/08/18 01:41 01:51 02:00 Temperature Pulse Rate 49 L 45 L 51 L Respiratory 12 13 14 Rate Blood Pressure 100/53 100/53 80/53 O2 Sat by Pulse 99 99 98 Oximetry 03/08/18 03/08/18 03/08/18 02:11 02:21 02:30 Temperature Pulse Rate 52 L 62 61 Respiratory 16 15 15 Rate Blood Pressure 135/75 131/72 130/68 O2 Sat by Pulse 100 100 100 Oximetry 03/08/18 03/08/18 03/08/18 02:40 02:50 03:00 Temperature Pulse Rate 65 69 64 Respiratory 16 16 15 Rate Blood Pressure 128/64 118/68 121/66 O2 Sat by Pulse 84 99 100 Oximetry 03/08/18 03/08/18 03/08/18 03:10 03:21 03:30 Temperature Pulse Rate 61 61 62 Respiratory 16 14 14 Rate Blood Pressure 125/72 118/67 112/65 O2 Sat by Pulse 99 99 99 Oximetry 03/08/18 03/08/18 03/08/18 03:41 03:45 03:51 Temperature 98 F Pulse Rate 66 60 Respiratory 12 13 Rate Blood Pressure 112/65 118/60 O2 Sat by Pulse 97 98 Oximetry 03/08/18 03/08/18 03/08/18 04:01 04:11 04:21 Temperature Pulse Rate 53 L 68 74 Respiratory 14 19 13 Rate Blood Pressure 103/47 103/47 103/71 O2 Sat by Pulse 97 98 97 Oximetry 03/08/18 03/08/18 03/08/18 04:30 04:41 04:51 Temperature Pulse Rate 63 62 62 Respiratory 14 14 13 Rate Blood Pressure 117/69 117/69 120/67 O2 Sat by Pulse 98 98 98 Oximetry 03/08/18 03/08/18 03/08/18 05:00 05:11 05:21 Temperature Pulse Rate 63 59 L 62 Respiratory 14 14 15 Rate Blood Pressure 115/69 115/69 120/67 O2 Sat by Pulse 98 96 98 Oximetry 03/08/18 03/08/18 03/08/18 05:30 05:41 05:51 Temperature Pulse Rate 60 70 70 Respiratory 15 14 15 Rate Blood Pressure 123/70 123/70 124/72 O2 Sat by Pulse 99 98 99 Oximetry 03/08/18 03/08/18 03/08/18 06:00 06:11 06:21 Temperature Pulse Rate 62 59 L 64 Respiratory 15 15 14 Rate Blood Pressure 117/70 117/70 118/73 O2 Sat by Pulse 100 98 99 Oximetry 03/08/18 03/08/18 03/08/18 06:30 06:41 06:51 Temperature Pulse Rate 62 60 79 Respiratory 15 13 15 Rate Blood Pressure 120/76 120/76 119/58 O2 Sat by Pulse 97 98 98 Oximetry General appearance: Present: no acute distress - EENT Eyes: EOM intact ENT: hearing intact - Neck Neck: supple, normal ROM - Respiratory Respiratory effort: normal Respiratory: bilateral: diminished - Breasts Breasts: deferred - Cardiovascular Rhythm: regular Heart Sounds: Present: S1 & S2 Extremities: no ischemia, pulses intact - Gastrointestinal General gastrointestinal: Present: soft, non-distended, normal bowel sounds Rectal Exam: deferred - Genitourinary Male genitourinary: deferred - Integumentary Integumentary: clear, warm, dry - Labs CBC & Chem 7: 03/08/18 04:33 03/08/18 04:33 Labs: Abnormal lab results 03/07/18 03/08/18 03/08/18 Range/Units 11:28 04:33 04:33 RDW 15.3 H (13.2-15.2) % [place] % (Auto) 11.4 H (0.0-7.3) % Eos % (Auto) 7.2 H (0.0-4.3) % Chloride 109.2 H (98-107) mmol/L Creatinine 0.6 L (0.8-1.5) mg/dL POC Glucose 129 H (70-105) Calcium 8.0 L (8.4-10.2) mg/dL Total Protein 5.8 L (6.3-8.2) g/dL Albumin 3.5 L (3.9-5) g/dL
[2018-03-08] MEDS: SODIUM CHLORIDE FLUSH SYRINGE 10 ML IV SCH ×2 (10:00→22:00)
[2018-03-08] MEDS: PEPCID IV SCH ×2 (10:04→22:11)
[2018-03-08] MEDS: HEPARIN SUB-Q SCH ×2 (10:04→22:11)
[2018-03-08] MEDS: KEPPRA 750 MG in NACL 0.9% 100 ML IV SCH ×2 (10:06→22:18)
--- NOTE | 2018-03-08 11:00 | Consultation ---
History of Present Illness Consult date: 03/08/18 History of present illness: thanks for the consult the patient is well known to me plan firther follow up seizure control is good at this point neuro exam is at baseline Past History Past Medical History: GERD, hypertension, seizures Past Surgical History: Other Social history: no significant social history Family history: no significant family history Medications and Allergies Allergies Allergy/AdvReac Type Severity Reaction Status Date / Time Penicillins Allergy Unknown Verified 03/06/18 22:49 chocolate flavor AdvReac Rash Verified 03/06/18 22:49 peanut AdvReac Rash Verified 03/06/18 22:49 Home Medications Medication Instructions Recorded Confirmed Last Taken Type levETIRAcetam [Keppra TAB] 1,000 mg PO BID #60 tab 10/06/17 03/07/18 03/05/18 Rx Docusate Sodium [Colace] 100 mg PO BID PRN #60 capsule 10/12/17 03/07/18 Unknown Rx Famotidine [Pepcid] 20 mg PO BID #30 tablet 10/12/17 03/07/18 03/06/18 Rx Polyethylene Glycol 3350 [Miralax 17 gm PO QDAY #60 packet 10/12/17 03/07/1805/16 Rx 3350] hydrALAZINE [Apresoline TAB] 100 mg PO Q4HR PRN #60 tab 10/12/17 03/07/18 Unknown Rx Acetaminophen [Acetaminophen 8 650 mg PO Q6H PRN 10/18/17 03/07/18 Unknown History Hour] Ondansetron [Zofran TAB] 4 mg PO Q8HR PRN 10/18/17 03/07/18 Unknown History Dulcolax tab 10 mg PO DAILY PRN 03/07/18 03/07/18 Unknown History Promethazine 25 mg PO Q4H PRN 03/07/18 03/07/18 Unknown History Transderm-Scop 1.5 mg TD Q3D PRN 03/07/18 03/07/18 Unknown History Active Meds: Active Medications Acetaminophen (Tylenol) 650 mg PO Q4H PRN PRN Reason: Pain MILD(1-3)/Fever >100.5/[place] Docusate Sodium (Colace) 100 mg PO BID PRN PRN Reason: Bowel Movement Famotidine (Pepcid) 20 mg IV BID [facility]YCE Last Admin: 03/08/18 10:04 Dose: 20 mg Heparin Sodium (Porcine) (Heparin) 5,000 unit SUB-Q Q12HR [facility] Last Admin: 03/08/18 10:04 Dose: 5,000 unit Hydralazine HCl (Apresoline) 100 mg PO Q4HR PRN PRN Reason: Hypertension Hydrocortisone Sodium Succinate (Solu-Cortef) 100 mg IV Q8HR [facility] Last Admin: 03/08/18 10:04 Dose: 100 mg Norepinephrine (Levophed Drip 4 Mg/Ns 250 Ml) 4 mg in 250 mls @ 7.5 mls/hr IV TITR BRYCE; Protocol Last Titration: 03/07/18 20:10 Dose: Infused Dextrose/Sodium Chloride (D5ns) 1,000 mls @ 100 mls/hr IV DIRECT [facility] Last Infusion: 03/07/18 20:11 Dose: Infused Levetiracetam 750 mg/ Sodium (Chloride) 107.5 mls @ 400 mls/hr IV Q12HR [facility] Last Admin: 03/08/18 10:06 Dose: 400 mls/hr Lorazepam (Ativan) 1 mg IV Q4H PRN PRN Reason: Seizures Ondansetron HCl (Zofran) 4 mg IV Q8H PRN PRN Reason: Nausea And Vomiting Polyethylene Glycol (Miralax 3350) 17 gm PO QDAY [facility] Last Admin: 03/07/18 11:16 Dose: 17 gm Sodium Chloride (Sodium Chloride Flush Syringe 10 Ml) 10 ml IV BID [facility] Last Admin: 03/07/18 21:06 Dose: 10 ml Sodium Chloride (Sodium Chloride Flush Syringe 10 Ml) 10 ml IV PRN PRN PRN Reason: LINE FLUSH Physical Examination - Vital Signs Vital Signs: Vital Signs Pulse Resp BP Pulse Ox 129 H 22 137/66 96 03/06/18 22:34 03/06/18 22:34 03/06/18 22:34 03/06/18 22:34 Results - Laboratory Findings CBC and BMP: 03/08/18 04:33 03/08/18 04:33 Abnormal Lab Findings: Abnormal Labs 03/06/18 03/06/18 03/06/18 22:50 23:13 23:13 RDW 15.6 H [place] % (Auto) 8.7 H Eos % (Auto) 7.0 H Chloride Creatinine Glucose 157 H POC Glucose 60 L Calcium 8.2 L Total Creatine Kinase 313 H Total Protein 5.9 L Albumin 3.8 L 03/07/18 03/07/18 03/07/18 00:09 04:40 11:28 RDW [place] % (Auto) Eos % (Auto) Chloride Creatinine 0.7 L Glucose POC Glucose 127 H 129 H Calcium 7.9 L Total Creatine Kinase Total Protein Albumin 03/07/18 03/08/18 03/08/18 16:06 04:33 04:33 RDW 15.3 H [place] % (Auto) 11.4 H Eos % (Auto) 7.2 H Chloride 109.2 H Creatinine 0.6 L Glucose POC Glucose 124 H Calcium 8.0 L Total Creatine Kinase Total Protein 5.8 L Albumin 3.5 L
[2018-03-08] MEDS: D5NS 1,000 ML IV SCH ×2 (11:18→21:13)
--- NOTE | 2018-03-08 12:31 | Progress Note ---
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 He was found to be hypoglycemic (he doesn' t have a history of DM), BG was 55 and hypotensive which did not respond to IV fluid resuscitation; therefore, right femoral central line placed and Levophed IV drip started and admitted to ICU. Jet Wiper, Mr. Jain says that he has not had his baseline mental status and that he is usually verbal and conversive. * pCXR IMPRESSION: Diffuse chronic obstructive changes. There is volume loss with slight atelectasis left lower lung. * CT HEAD/BRAIN WO CON IMPRESSION: There is been previous large left temporal craniectomy. Large area and soft malacia in the left frontal and temporal lobes is noted. Moderate atrophy and slight periventricular deep white matter change. There is no evidence of an acute intracranial hemorrhage, hematoma or infarction. -Acute encephalopathy due to seizures and hypotension: continue to treat the sz and low bp -Hypoglycemia: treat with iv dextrose additive and repeat levels, check A1C -Hypotension with hypovolemic shock: On Levophed drip down to 3 mcg, on D5NS at 100 ml/hr, trying to wean off Levophed -Intractable Seizures: Cont IV keppra, Transition to PO Keppra, prn iv Ativan -Right groin TLC day 2: I have asked the nurse to place condom catheter, due to right groin saturated with urine around TLC -DVT prophylaxis: On Heparin IV Levophed drip down to 2mcg Check cortisol level per [facility] CCT 33 minutes History Interval history: Patient was seen and examined. Follow-up on current diagnosis on sz and hypotension. Overnight uneventful. Patient denies any chest pain, shortness breath, nausea/vomiting or severe headaches. Imaging, nursing note, chart, labs and old chart reviewed. Discussed with patient and caregiver, Mr. Jain at bedside. Hospitalist Physical - Physical exam Narrative exam: GEN: chronic debiliated, NAD, Awake, Alert, Orientated HEENT: not normal cephalic with craniotomy scar/skull on the left, disjoined extramolar on the left, wondering left eye, OP Clear NECK: supple, no adenopathy, no thyromegaly, no JVD CVS/HEART: RRR, normal S1S2, pulses present bilaterally CHEST/LUNGS: CTA B, Symmetrical chest expansion, good air entry bilaterally GI/Abdomen: soft, NTND, good bowel sounds, no guarding or rebound /Bladder: no suprapubic tenderness, no CVA or paraspinal tenderness EXT/Skin: no c/c/e, + obvious red rash left knuckle/hand and petechiae down the right leg to foot, mmm dry MSK: right hemiparesis Neuro: CN 2-12 grossly intact, no new focal deficits Psych: calm - Constitutional Vitals: Temp Pulse Resp BP Pulse Ox 97.9 F 79 15 119/58 94 03/08/18 12:00 03/08/18 06:51 03/08/18 06:51 03/08/18 06:51 03/08/18 09:03 General appearance: Present: no acute distress Results - Labs CBC & Chem 7: 03/08/18 04:33 03/08/18 04:33 Labs: Laboratory Last Values WBC 6.0 K/mm3 (4.5-11.0) 03/08/18 04:33 RBC 4.51 M/mm3 (3.65-5.03) 03/08/18 04:33 Hgb 13.5 gm/dl (11.8-15.2) 03/08/18 04:33 Hct 39.8 % (35.5-45.6) 03/08/18 04:33 MCV 88 fl (84-94) 03/08/18 04:33 MCH 30 pg (28-32) 03/08/18 04:33 MCHC 34 % (32-34) 03/08/18 04:33 RDW 15.3 % (13.2-15.2) H 03/08/18 04:33 Plt Count 190 K/mm3 (140-440) 03/08/18 04:33 Lymph % (Auto) 29.3 % (13.4-35.0) 03/08/18 04:33 [place] % (Auto) 11.4 % (0.0-7.3) H 03/08/18 04:33 Eos % (Auto) 7.2 % (0.0-4.3) H 03/08/18 04:33 Baso % (Auto) 0.7 % (0.0-1.8) 03/08/18 04:33 Lymph # 1.8 K/mm3 (1.2-5.4) 03/08/18 04:33 [place] # 0.7 K/mm3 (0.0-0.8) 03/08/18 04:33 Eos # 0.4 K/mm3 (0.0-0.4) 03/08/18 04:33 Baso # 0.0 K/mm3 (0.0-0.1) 03/08/18 04:33 Seg Neutrophils % 51.4 % (40.0-70.0) 03/08/18 04:33 Seg Neutrophils # 3.1 K/mm3 (1.8-7.7) 03/08/18 04:33 Sodium 145 mmol/L (137-145) 03/08/18 04:33 Potassium 3.8 mmol/L (3.6-5.0) 03/08/18 04:33 Chloride 109.2 mmol/L (98-107) H 03/08/18 04:33 Carbon Dioxide 26 mmol/L (22-30) 03/08/18 04:33 Anion Gap 14 mmol/L 03/08/18 04:33 BUN 9 mg/dL (9-20) 03/08/18 04:33 Creatinine 0.6 mg/dL (0.8-1.5) L 03/08/18 04:33 Estimated GFR > 60 ml/min 03/08/18 04:33 BUN/Creatinine Ratio 15 % 03/08/18 04:33 Glucose 98 mg/dL (75-100) 03/08/18 04:33 POC Glucose 91 (70-105) 03/08/18 11:53 Hemoglobin A1c 5.6 % (4-6) 03/07/18 04:40 Lactic Acid 1.20 mmol/L (0.7-2.0) 03/07/18 00:50 Calcium 8.0 mg/dL (8.4-10.2) L 03/08/18 04:33 Magnesium 1.80 mg/dL (1.7-2.3) 03/06/18 23:13 Total Bilirubin 0.50 mg/dL (0.1-1.2) 03/08/18 04:33 AST 21 units/L (5-40) 03/08/18 04:33 ALT 15 units/L (7-56) 03/08/18 04:33 Alkaline Phosphatase 93 units/L (35-129) 03/08/18 04:33 Total Creatine Kinase 313 units/L (55-170) H 03/06/18 23:13 Total Protein 5.8 g/dL (6.3-8.2) L 03/08/18 04:33 Albumin 3.5 g/dL (3.9-5) L 03/08/18 04:33 Albumin/Globulin Ratio 1.5 % 03/08/18 04:33 TSH 3.940 mlU/mL (0.270-4.200) 03/07/18 12:34 Free T4 1.01 ng/dL (0.76-1.46) 03/07/18 12:34 Urine Color Yellow (Yellow) 03/07/18 02:05 Urine Turbidity Clear (Clear) 03/07/18 02:05 Urine pH 5.0 (5.0-7.0) 03/07/18 02:05 Ur Specific [place] 1.015 (1.003-1.030) 03/07/18 02:05 Urine Protein <15 mg/dl mg/dL (Negative) 03/07/18 02:05 Urine Glucose (UA) 50 mg/dL (Negative) 03/07/18 02:05 Urine Ketones Neg mg/dL (Negative) 03/07/18 02:05 Urine Blood Sm (Negative) 03/07/18 02:05 Urine Nitrite Neg (Negative) 03/07/18 02:05 Urine Bilirubin Neg (Negative) 03/07/18 02:05 Urine Urobilinogen < 2.0 mg/dL (<2.0) 03/07/18 02:05 Ur Leukocyte Esterase Neg (Negative) 03/07/18 02:05 Urine WBC (Auto) 1.0 /HPF (0.0-6.0) 03/07/18 02:05 Urine RBC (Auto) 4.0 /HPF (0.0-6.0) 03/07/18 02:05 U Epithel Cells (Auto) 1.0 /HPF (0-13.0) 03/07/18 02:05 Urine Mucus Few /HPF 03/07/18 02:05
[2018-03-08] MEDS: MIRALAX 3350 PO SCH (19:22)
[2018-03-08] MEDS: LIORESAL PO SCH (22:11)
[2018-03-09] MEDS: D5NS 1,000 ML IV SCH ×2 (07:00→18:15)
--- NOTE | 2018-03-09 08:37 | Consultation ---
This is a patient previously seen by me at [facility] 6 months ago. The patient is admitted with a diagnosis of seizure, which apparently occurred due to hypoglycemia. I have seen him previously in the hospital. He has a known brain injury on the left side and has had a craniotomy with repair of a defect with extensive left-sided brain damage that was present previously with ventriculomegaly, loss of nice white matter in the left frontal and left parietal lobe and very little evidence of any recovery of the brain volume over the left temporal, frontal and deep white matter. 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 No evidence of any intervening hydrocephalus is present. The patient was admitted with a diagnosis of hypoglycemia. He apparently became acutely ill at home. His other labs showed his hematocrit to be 39.8, his potassium is 3.8, sodium is 147. Subsequent to arrival in the hospital, his glucoses then angella to the range of 124, 129 and the son who is with him, states that he then became very alert and responsive. Since admission to the ICU, his vital signs have remained stable. Blood pressures have been good. Pulse rate is 79, temperature 98.5. He has returned to his baseline status, but he did have perhaps an occasional jerking movement of the right upper extremity at some point. My examination at this point reveals him to be alert. He recognizes me, looks over to me. His left eye was deviated outward. He has a craniotomy in the left side, which palpation is unremarkable. No evidence of any CSF drainage present. His right arm is markedly paretic. He has dystonic posture, right chronic hemiparesis. He has occasional parkinsonian tremor in his left hand, which is pill rolling, but otherwise does not have evidence of Parkinson such as masked facies and given his underlying neurological stroke related to the traumatic brain injury, it is difficult to comment on whether the features of Parkinson's disease are present. The patient does not have any active seizure activity on my examination. IMPRESSION: 1. Status post traumatic brain injury, left cerebral hemisphere. 2. Seizure disorder related to above. 3. New-onset of encephalopathy related to hypoglycemia, etiology of the hypoglycemia is very questionable given the fact he does not take oral hypoglycemic agents, he is not on metformin and glipizide, has not been dieting, does not take insulin. This should be assessed further and I did recommend to the family that medicine bottles be checked to make sure he does not inadvertently get an agent that he was tend to be on. Plan at this point is to get an EEG. I will follow the patient with you. JOB# [id number] YOEL/NTS
[2018-03-09] MEDS: KEPPRA 750 MG in NACL 0.9% 100 ML IV SCH (10:46)
[2018-03-09] MEDS: SODIUM CHLORIDE FLUSH SYRINGE 10 ML IV SCH ×2 (10:46→22:53)
[2018-03-09] MEDS: PEPCID IV SCH (10:47)
[2018-03-09] MEDS: LIORESAL PO SCH ×3 (10:47→22:50)
[2018-03-09] MEDS: HEPARIN SUB-Q SCH ×2 (10:47→22:49)
--- NOTE | 2018-03-09 11:50 | Progress Note ---
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 He was found to be hypoglycemic (he doesn' t have a history of DM), BG was 55 and hypotensive which did not respond to IV fluid resuscitation; therefore, right femoral central line placed and Levophed IV drip started and admitted to ICU. 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 * pCXR IMPRESSION: Diffuse chronic obstructive changes. There is volume loss with slight atelectasis left lower lung. * CT HEAD/BRAIN WO CON IMPRESSION: There is been previous large left temporal craniectomy. Large area and soft malacia in the left frontal and temporal lobes is noted. Moderate atrophy and slight periventricular deep white matter change. There is no evidence of an acute intracranial hemorrhage, hematoma or infarction. -Acute encephalopathy due to seizures and hypotension: continue to treat the sz and low bp -Hypoglycemia: treat with iv dextrose additive and repeat levels, check A1C -Hypotension with hypovolemic shock: On Levophed drip down to 3 mcg, on D5NS at 100 ml/hr, trying to wean off Levophed -Intractable Seizures: Cont IV keppra, Transition to PO Keppra, prn iv Ativan -Right groin TLC day 2: I have asked the nurse to place condom catheter, due to right groin saturated with urine around TLC -Diffuse chronic rash: continue to monitor -DVT prophylaxis: On Heparin IV Levophed drip weaned off, will transfer to medical floor added baclofen for right arm spasms History Interval history: Patient was seen and examined. Follow-up on current diagnosis on sz and hypotension. Overnight uneventful. Patient denies any chest pain, shortness breath, nausea/vomiting or severe headaches. Imaging, nursing note, chart, labs and old chart reviewed. 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7 F 92 H 16 118/64 98 03/09/18 08:00 03/09/18 09:20 03/09/18 09:20 03/09/18 09:20 03/09/18 11:22 General appearance: Present: no acute distress Results - Labs CBC & Chem 7: 03/08/18 04:33 03/08/18 04:33 Labs: Laboratory Last Values WBC 6.0 K/mm3 (4.5-11.0) 03/08/18 04:33 RBC 4.51 M/mm3 (3.65-5.03) 03/08/18 04:33 Hgb 13.5 gm/dl (11.8-15.2) 03/08/18 04:33 Hct 39.8 % (35.5-45.6) 03/08/18 04:33 MCV 88 fl (84-94) 03/08/18 04:33 MCH 30 pg (28-32) 03/08/18 04:33 MCHC 34 % (32-34) 03/08/18 04:33 RDW 15.3 % (13.2-15.2) H 03/08/18 04:33 Plt Count 190 K/mm3 (140-440) 03/08/18 04:33 Lymph % (Auto) 29.3 % (13.4-35.0) 03/08/18 04:33 [place] % (Auto) 11.4 % (0.0-7.3) H 03/08/18 04:33 Eos % (Auto) 7.2 % (0.0-4.3) H 03/08/18 04:33 Baso % (Auto) 0.7 % (0.0-1.8) 03/08/18 04:33 Lymph # 1.8 K/mm3 (1.2-5.4) 03/08/18 04:33 [place] # 0.7 K/mm3 (0.0-0.8) 03/08/18 04:33 Eos # 0.4 K/mm3 (0.0-0.4) 03/08/18 04:33 Baso # 0.0 K/mm3 (0.0-0.1) 03/08/18 04:33 Seg Neutrophils % 51.4 % (40.0-70.0) 03/08/18 04:33 Seg Neutrophils # 3.1 K/mm3 (1.8-7.7) 03/08/18 04:33 Sodium 145 mmol/L (137-145) 03/08/18 04:33 Potassium 3.8 mmol/L (3.6-5.0) 03/08/18 04:33 Chloride 109.2 mmol/L (98-107) H 03/08/18 04:33 Carbon Dioxide 26 mmol/L (22-30) 03/08/18 04:33 Anion Gap 14 mmol/L 03/08/18 04:33 BUN 9 mg/dL (9-20) 03/08/18 04:33 Creatinine 0.6 mg/dL (0.8-1.5) L 03/08/18 04:33 Estimated GFR > 60 ml/min 03/08/18 04:33 BUN/Creatinine Ratio 15 % 03/08/18 04:33 Glucose 98 mg/dL (75-100) 03/08/18 04:33 POC Glucose 107 (70-105) H 03/09/18 07:39 Hemoglobin A1c 5.6 % (4-6) 03/07/18 04:40 Lactic Acid 1.20 mmol/L (0.7-2.0) 03/07/18 00:50 Calcium 8.0 mg/dL (8.4-10.2) L 03/08/18 04:33 Magnesium 1.80 mg/dL (1.7-2.3) 03/06/18 23:13 Total Bilirubin 0.50 mg/dL (0.1-1.2) 03/08/18 04:33 AST 21 units/L (5-40) 03/08/18 04:33 ALT 15 units/L (7-56) 03/08/18 04:33 Alkaline Phosphatase 93 units/L (35-129) 03/08/18 04:33 Total Creatine Kinase 313 units/L (55-170) H 03/06/18 23:13 Total Protein 5.8 g/dL (6.3-8.2) L 03/08/18 04:33 Albumin 3.5 g/dL (3.9-5) L 03/08/18 04:33 Albumin/Globulin Ratio 1.5 % 03/08/18 04:33 TSH 3.940 mlU/mL (0.270-4.200) 03/07/18 12:34 Free T4 1.01 ng/dL (0.76-1.46) 03/07/18 12:34 Urine Color Yellow (Yellow) 03/07/18 02:05 Urine Turbidity Clear (Clear) 03/07/18 02:05 Urine pH 5.0 (5.0-7.0) 03/07/18 02:05 Ur Specific [place] 1.015 (1.003-1.030) 03/07/18 02:05 Urine Protein <15 mg/dl mg/dL (Negative) 03/07/18 02:05 Urine Glucose (UA) 50 mg/dL (Negative) 03/07/18 02:05 Urine Ketones Neg mg/dL (Negative) 03/07/18 02:05 Urine Blood Sm (Negative) 03/07/18 02:05 Urine Nitrite Neg (Negative) 03/07/18 02:05 Urine Bilirubin Neg (Negative) 03/07/18 02:05 Urine Urobilinogen < 2.0 mg/dL (<2.0) 03/07/18 02:05 Ur Leukocyte Esterase Neg (Negative) 03/07/18 02:05 Urine WBC (Auto) 1.0 /HPF (0.0-6.0) 03/07/18 02:05 Urine RBC (Auto) 4.0 /HPF (0.0-6.0) 03/07/18 02:05 U Epithel Cells (Auto) 1.0 /HPF (0-13.0) 03/07/18 02:05 Urine Mucus Few /HPF 03/07/18 02:05
--- NOTE | 2018-03-09 14:03 | Progress Note ---
Assessment and Plan Imp: 1. Seizure disorder 2. Hypoglycemia 3. Hypotension 4. Acute encephalopathy Rec: 1. AEDs per neuro 2. Off Levophed; monitor BP; taper steroids in AM; f/u random cortisol level 3. DVT PPx 4. To floor today if BP remains stable, and can pull out groin line if able to get peripheral IVs Plan of care reviewed with patient, he understands/agrees Subjective Date of service: 03/09/18 Principal diagnosis: Seizures Interval history: No events. Off Levophed since this AM with good BP. On RA. No complaints. No seizures. Active Medications Acetaminophen (Tylenol) 650 mg PO Q4H PRN PRN Reason: Pain MILD(1-3)/Fever >100.5/[place] Baclofen (Lioresal) 10 mg PO TID [facility] Last Admin: 03/09/18 10:47 Dose: 10 mg Docusate Sodium (Colace) 100 mg PO BID PRN PRN Reason: Bowel Movement Famotidine (Pepcid) 20 mg IV BID [facility] Last Admin: 03/09/18 10:47 Dose: 20 mg Heparin Sodium (Porcine) (Heparin) 5,000 unit SUB-Q Q12HR [facility] Last Admin: 03/09/18 10:47 Dose: 5,000 unit Hydralazine HCl (Apresoline) 100 mg PO Q4HR PRN PRN Reason: Hypertension Hydrocortisone Sodium Succinate (Solu-Cortef) 100 mg IV Q8HR [facility] Last Admin: 03/09/18 06:15 Dose: 100 mg Norepinephrine (Levophed Drip 4 Mg/Ns 250 Ml) 4 mg in 250 mls @ 7.5 mls/hr IV TITR [facility]; Protocol Last Titration: 03/07/18 20:10 Dose: Infused Dextrose/Sodium Chloride (D5ns) 1,000 mls @ 100 mls/hr IV DIRECT [facility] Last Admin: 03/09/18 07:00 Dose: 100 mls/hr Levetiracetam (Keppra) 1,000 mg PO QAM [facility] Levetiracetam (Keppra) 2,000 mg PO QPM [facility] Lorazepam (Ativan) 1 mg IV Q4H PRN PRN Reason: Seizures Ondansetron HCl (Zofran) 4 mg IV Q8H PRN PRN Reason: Nausea And Vomiting Polyethylene Glycol (Miralax 3350) 17 gm PO QDAY [facility] Last Admin: 03/08/18 19:22 Dose: Not Given Sodium Chloride (Sodium Chloride Flush Syringe 10 Ml) 10 ml IV BID [facility] Last Admin: 03/09/18 10:46 Dose: 10 ml Sodium Chloride (Sodium Chloride Flush Syringe 10 Ml) 10 ml IV PRN PRN PRN Reason: LINE FLUSH Objective Vital Signs - 12 03/09/18 03/09/18 03/09/18 02:00 02:10 02:20 Temperature Pulse Rate 54 L 53 L 51 L Respiratory 15 14 16 Rate Blood Pressure 118/63 118/63 103/73 O2 Sat by Pulse 96 98 97 Oximetry 03/09/18 03/09/18 03/09/18 02:30 02:40 02:50 Temperature Pulse Rate 53 L 58 L 84 Respiratory 15 14 16 Rate Blood Pressure 103/59 103/59 102/59 O2 Sat by Pulse 96 97 97 Oximetry 03/09/18 03/09/18 03/09/18 03:00 03:02 03:10 Temperature 98.9 F Pulse Rate 50 L 59 L Respiratory 15 16 Rate Blood Pressure 106/58 106/58 O2 Sat by Pulse 96 96 Oximetry 03/09/18 03/09/18 03/09/18 03:20 03:30 03:40 Temperature Pulse Rate 59 L 57 L 57 L Respiratory 15 14 15 Rate Blood Pressure 113/68 122/65 122/65 O2 Sat by Pulse 97 97 97 Oximetry 03/09/18 03/09/18 03/09/18 03:50 04:00 04:10 Temperature Pulse Rate 60 71 93 H Respiratory 14 17 19 Rate Blood Pressure 111/62 111/62 133/67 O2 Sat by Pulse 97 97 Oximetry 03/09/18 03/09/18 03/09/18 04:20 04:30 04:40 Temperature Pulse Rate 72 81 72 Respiratory 16 16 21 Rate Blood Pressure 133/79 133/79 133/79 O2 Sat by Pulse 98 100 95 Oximetry 03/09/18 03/09/18 03/09/18 04:50 05:00 05:10 Temperature Pulse Rate 83 73 69 Respiratory 13 15 14 Rate Blood Pressure 125/72 116/71 116/71 O2 Sat by Pulse 98 98 98 Oximetry 03/09/18 03/09/18 03/09/18 05:20 05:30 05:40 Temperature Pulse Rate 70 71 70 Respiratory 14 14 16 Rate Blood Pressure 116/71 129/75 129/75 O2 Sat by Pulse 100 99 98 Oximetry 03/09/18 03/09/18 03/09/18 05:50 06:00 06:10 Temperature Pulse Rate 72 70 59 L Respiratory 15 14 15 Rate Blood Pressure 126/72 122/73 122/73 O2 Sat by Pulse 99 99 99 Oximetry 03/09/18 03/09/18 03/09/18 06:20 06:30 06:40 Temperature Pulse Rate 77 78 75 Respiratory 14 14 15 Rate Blood Pressure 125/71 118/69 118/69 O2 Sat by Pulse 98 98 99 Oximetry 03/09/18 03/09/18 03/09/18 06:50 07:00 07:10 Temperature Pulse Rate 87 87 97 H Respiratory 14 14 16 Rate Blood Pressure 109/73 113/73 113/73 O2 Sat by Pulse 100 100 99 Oximetry 03/09/18 03/09/18 03/09/18 07:20 07:30 07:40 Temperature Pulse Rate 81 77 74 Respiratory 16 15 14 Rate Blood Pressure 103/70 109/67 109/67 O2 Sat by Pulse 100 98 98 Oximetry 03/09/18 03/09/18 03/09/18 07:46 07:50 08:00 Temperature 98.7 F Pulse Rate 69 73 Respiratory 15 15 Rate Blood Pressure 115/74 110/70 O2 Sat by Pulse 99 97 95 Oximetry 03/09/18 03/09/18 03/09/18 08:10 08:20 08:30 Temperature Pulse Rate 68 72 75 Respiratory 14 16 16 Rate Blood Pressure 110/70 119/69 119/69 O2 Sat by Pulse 95 96 91 Oximetry 03/09/18 03/09/18 03/09/18 08:40 08:50 09:00 Temperature Pulse Rate 84 89 98 H Respiratory 16 16 20 Rate Blood Pressure 119/69 119/69 119/69 O2 Sat by Pulse 93 94 97 Oximetry 03/09/18 03/09/18 03/09/18 09:10 09:20 11:22 Temperature Pulse Rate 96 H 92 H Respiratory 15 16 Rate Blood Pressure 118/67 118/64 O2 Sat by Pulse 98 97 98 Oximetry 03/09/18 12:00 Temperature 98.1 F Pulse Rate Respiratory Rate Blood Pressure O2 Sat by Pulse Oximetry Constitutional: no acute distress, alert Eyes: non-icteric ENT: oropharynx moist Neck: supple Effort: normal Ascultation: Bilateral: clear Cardiovascular: regular rate and rhythm (no mrg) Gastrointestinal: normoactive bowel sounds Integumentary: normal Extremities: no cyanosis Neurologic: normal mental status, pupils equal and round, other (R hemiparesis) Psychiatric: mood appropriate, affect normal CBC and BMP: 03/08/18 04:33 03/08/18 04:33 Abnormal lab findings: Abnormal Labs 03/06/18 03/06/18 03/06/18 22:50 23:13 23:13 RDW 15.6 H [place] % (Auto) 8.7 H Eos % (Auto) 7.0 H Chloride Creatinine Glucose 157 H POC Glucose 60 L Calcium 8.2 L Total Creatine Kinase 313 H Total Protein 5.9 L Albumin 3.8 L 03/07/18 03/07/18 03/07/18 00:09 04:40 11:28 RDW [place] % (Auto) Eos % (Auto) Chloride Creatinine 0.7 L Glucose POC Glucose 127 H 129 H Calcium 7.9 L Total Creatine Kinase Total Protein Albumin 03/07/18 03/08/18 03/08/18 16:06 04:33 04:33 RDW 15.3 H [place] % (Auto) 11.4 H Eos % (Auto) 7.2 H [place] 109.2 H Creatinine 0.6 L Glucose POC Glucose 124 H Calcium 8.0 L Total Creatine Kinase Total Protein 5.8 L Albumin 3.5 L 03/08/18 03/09/18 03/09/18 17:01 01:58 04:27 RDW [place] % (Auto) Eos % (Auto) Chloride Creatinine Glucose POC Glucose 127 H 110 H 121 H Calcium Total Creatine Kinase Total Protein Albumin 03/09/18 07:39 RDW [place] % (Auto) Eos % (Auto) Chloride Creatinine Glucose POC Glucose 107 H Calcium Total Creatine Kinase Total Protein Albumin Chest x-ray: report reviewed, image reviewed
[2018-03-09] MEDS ORDERED: KEPPRA PO SCH (18:00)
[2018-03-09] MEDS: MIRALAX 3350 PO SCH (18:14)
[2018-03-10] MEDS: D5NS 1,000 ML IV SCH (06:21)
[2018-03-10 07:13] LABS: Hematocrit 41.2 % (35.5-45.6); Hemoglobin 13.8 gm/dl (11.8-15.2); Mean Corpuscular HGB Conc 34 % (32-34); Mean Corpuscular Hemoglobin 30 pg (28-32); Mean Corpuscular Volume 89 fl (84-94); Platelet Count 172 K/mm3 (140-440); Red Blood Count 4.61 M/mm3 (3.65-5.03); Red Cell Distribution Width 15.9 % (13.2-15.2)
[2018-03-10 07:43] LABS: BUN/Creatinine Ratio 11; Blood Urea Nitrogen 9 mg/dL (9-20); Calcium 8.3 mg/dL (8.4-10.2); Hemolysis Index 4
[2018-03-10] MEDS: LIORESAL PO SCH ×3 (08:26→22:32)
--- NOTE | 2018-03-10 09:25 | Progress Note ---
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 He was found to be hypoglycemic (he doesn' t have a history of DM), BG was 55 and hypotensive which did not respond to IV fluid resuscitation; therefore, right femoral central line placed and Levophed IV drip started and admitted to ICU. 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 * pCXR IMPRESSION: Diffuse chronic obstructive changes. There is volume loss with slight atelectasis left lower lung. * CT HEAD/BRAIN WO CON IMPRESSION: There is been previous large left temporal craniectomy. Large area and soft malacia in the left frontal and temporal lobes is noted. Moderate atrophy and slight periventricular deep white matter change. There is no evidence of an acute intracranial hemorrhage, hematoma or infarction. -Acute encephalopathy due to seizures and hypotension: continue to treat the sz and low bp -Hypoglycemia: treat with iv dextrose additive and repeat levels, check A1C -Hypotension with hypovolemic shock: On Levophed drip down to 3 mcg, on D5NS at 100 ml/hr, trying to wean off Levophed -Intractable Seizures: Cont IV keppra, Transition to PO Keppra, prn iv Ativan -Right groin TLC day 2: I have asked the nurse to place condom catheter, due to right groin saturated with urine around TLC -Diffuse chronic rash: continue to monitor -DVT prophylaxis: On Heparin IV Levophed drip weaned off, will transfer to medical floor added baclofen for right arm spasms Hospitalist Physical - Constitutional Vitals: Temp Pulse Resp BP Pulse Ox 98.8 F 80 20 117/64 94 03/10/18 08:25 03/10/18 08:25 03/10/18 08:25 03/10/18 08:25 03/10/18 08:25 General appearance: Present: no acute distress Results - Labs CBC & Chem 7: 03/10/18 06:40 03/10/18 06:40 Labs: Laboratory Last Values WBC 10.2 K/mm3 (4.5-11.0) 03/10/18 06:40 RBC 4.61 M/mm3 (3.65-5.03) 03/10/18 06:40 Hgb 13.8 gm/dl (11.8-15.2) 03/10/18 06:40 Hct 41.2 % (35.5-45.6) 03/10/18 06:40 MCV 89 fl (84-94) 03/10/18 06:40 MCH 30 pg (28-32) 03/10/18 06:40 MCHC 34 % (32-34) 03/10/18 06:40 RDW 15.9 % (13.2-15.2) H 03/10/18 06:40 Plt Count 172 K/mm3 (140-440) 03/10/18 06:40 Lymph % (Auto) 29.3 % (13.4-35.0) 03/08/18 04:33 [place] % (Auto) 11.4 % (0.0-7.3) H 03/08/18 04:33 Eos % (Auto) 7.2 % (0.0-4.3) H 03/08/18 04:33 Baso % (Auto) 0.7 % (0.0-1.8) 03/08/18 04:33 Lymph # 1.8 K/mm3 (1.2-5.4) 03/08/18 04:33 [place] # 0.7 K/mm3 (0.0-0.8) 03/08/18 04:33 Eos # 0.4 K/mm3 (0.0-0.4) 03/08/18 04:33 Baso # 0.0 K/mm3 (0.0-0.1) 03/08/18 04:33 Seg Neutrophils % 51.4 % (40.0-70.0) 03/08/18 04:33 Seg Neutrophils # 3.1 K/mm3 (1.8-7.7) 03/08/18 04:33 Sodium 145 mmol/L (137-145) 03/10/18 06:40 Potassium 3.7 mmol/L (3.6-5.0) 03/10/18 06:40 Chloride 105.8 mmol/L (98-107) 03/10/18 06:40 Carbon Dioxide 25 mmol/L (22-30) 03/10/18 06:40 Anion Gap 18 mmol/L 03/10/18 06:40 BUN 9 mg/dL (9-20) 03/10/18 06:40 Creatinine 0.8 mg/dL (0.8-1.5) 03/10/18 06:40 Estimated GFR > 60 ml/min 03/10/18 06:40 BUN/Creatinine Ratio 11 % 03/10/18 06:40 Glucose 93 mg/dL (75-100) 03/10/18 06:40 POC Glucose 139 (70-105) H 03/09/18 16:03 Hemoglobin A1c 5.6 % (4-6) 03/07/18 04:40 Lactic Acid 1.20 mmol/L (0.7-2.0) 03/07/18 00:50 Calcium 8.3 mg/dL (8.4-10.2) L 03/10/18 06:40 Magnesium 1.80 mg/dL (1.7-2.3) 03/06/18 23:13 Total Bilirubin 0.50 mg/dL (0.1-1.2) 03/08/18 04:33 AST 21 units/L (5-40) 03/08/18 04:33 ALT 15 units/L (7-56) 03/08/18 04:33 Alkaline Phosphatase 93 units/L (35-129) 03/08/18 04:33 Total Creatine Kinase 313 units/L (55-170) H 03/06/18 23:13 Total Protein 5.8 g/dL (6.3-8.2) L 03/08/18 04:33 Albumin 3.5 g/dL (3.9-5) L 03/08/18 04:33 Albumin/Globulin Ratio 1.5 % 03/08/18 04:33 TSH 3.940 mlU/mL (0.270-4.200) 03/07/18 12:34 Free T4 1.01 ng/dL (0.76-1.46) 03/07/18 12:34 Urine Color Yellow (Yellow) 03/07/18 02:05 Urine Turbidity Clear (Clear) 03/07/18 02:05 Urine pH 5.0 (5.0-7.0) 03/07/18 02:05 Ur Specific [place] 1.015 (1.003-1.030) 03/07/18 02:05 Urine Protein <15 mg/dl mg/dL (Negative) 03/07/18 02:05 Urine Glucose (UA) 50 mg/dL (Negative) 03/07/18 02:05 Urine Ketones Neg mg/dL (Negative) 03/07/18 02:05 Urine Blood Sm (Negative) 03/07/18 02:05 Urine Nitrite Neg (Negative) 03/07/18 02:05 Urine Bilirubin Neg (Negative) 03/07/18 02:05 Urine Urobilinogen < 2.0 mg/dL (<2.0) 03/07/18 02:05 Ur Leukocyte Esterase Neg (Negative) 03/07/18 02:05 Urine WBC (Auto) 1.0 /HPF (0.0-6.0) 03/07/18 02:05 Urine RBC (Auto) 4.0 /HPF (0.0-6.0) 03/07/18 02:05 U Epithel Cells (Auto) 1.0 /HPF (0-13.0) 03/07/18 02:05 Urine Mucus Few /HPF 03/07/18 02:05
[2018-03-10] MEDS: PROTONIX PO SCH (10:27)
[2018-03-10] MEDS: HEPARIN SUB-Q SCH ×2 (10:27→22:31)
[2018-03-10] MEDS: SODIUM CHLORIDE FLUSH SYRINGE 10 ML IV SCH ×2 (10:28→22:32)
[2018-03-10] MEDS: MIRALAX 3350 PO SCH (10:28)
--- NOTE | 2018-03-10 13:54 | Progress Note ---
Assessment and Plan Imp: 1. Seizure disorder 2. Hypoglycemia 3. Hypotension 4. Acute encephalopathy Rec: 1. AEDs per neuro 2. Steroids were started due to hypoglycemia of unknown etiology; f/u random cortisol level; change to Prednisone 30mg daily and would taper slowly from there 3. DVT PPx Plan of care reviewed with patient, he understands/agrees Subjective Date of service: 03/10/18 Principal diagnosis: Seizures Interval history: No events. On RA. No complaints. No seizures. Active Medications Acetaminophen (Tylenol) 650 mg PO Q4H PRN PRN Reason: Pain MILD(1-3)/Fever >100.5/[place] Baclofen (Lioresal) 10 mg PO TID [facility] Last Admin: 03/10/18 08:26 Dose: 10 mg Docusate Sodium (Colace) 100 mg PO BID PRN PRN Reason: Bowel Movement Heparin Sodium (Porcine) (Heparin) 5,000 unit SUB-Q Q12HR [facility] Last Admin: 03/10/18 10:27 Dose: 5,000 unit Hydralazine HCl (Apresoline) 100 mg PO Q4HR PRN PRN Reason: Hypertension Dextrose/Sodium Chloride (D5ns) 1,000 mls @ 100 mls/hr IV DIRECT [facility] Last Admin: 03/10/18 06:21 Dose: 100 mls/hr Levetiracetam (Keppra) 1,000 mg PO DAILY [facility] Levetiracetam (Keppra) 2,000 mg PO QHS [facility] Lorazepam (Ativan) 1 mg IV Q4H PRN PRN Reason: Seizures Ondansetron HCl (Zofran) 4 mg IV Q8H PRN PRN Reason: Nausea And Vomiting Pantoprazole Sodium (Protonix) 40 mg PO QDAY [facility] Last Admin: 03/10/18 10:27 Dose: 40 mg Polyethylene Glycol (Miralax 3350) 17 gm PO QDAY [facility] Last Admin: 03/10/18 10:28 Dose: Not Given Prednisone (Deltasone) 30 mg PO QDAY [facility] Sodium Chloride (Sodium Chloride Flush Syringe 10 Ml) 10 ml IV BID [facility] Last Admin: 03/10/18 10:28 Dose: 10 ml Sodium Chloride (Sodium Chloride Flush Syringe 10 Ml) 10 ml IV PRN PRN PRN Reason: LINE FLUSH Objective Vital Signs - 12hr 03/10/18 08:25 Temperature 98.8 F Pulse Rate [ 80 Left] Respiratory 20 Rate Blood Pressure 117/64 O2 Sat by Pulse 94 Oximetry Constitutional: no acute distress, alert Eyes: non-icteric ENT: oropharynx moist Neck: supple Effort: normal Ascultation: Bilateral: clear Cardiovascular: regular rate and rhythm (no mrg) Gastrointestinal: normoactive bowel sounds Integumentary: normal Extremities: no cyanosis Neurologic: normal mental status, pupils equal and round, other (R hemiparesis) Psychiatric: mood appropriate, affect normal CBC and BMP: 03/10/18 06:40 03/10/18 06:40 Abnormal lab findings: Abnormal Labs 03/06/18 03/06/18 03/06/18 22:50 23:13 23:13 RDW 15.6 H [place] % (Auto) 8.7 H Eos % (Auto) 7.0 H Chloride Creatinine Glucose 157 H POC Glucose 60 L Calcium 8.2 L Total Creatine Kinase 313 H Total Protein 5.9 L Albumin 3.8 L 03/07/18 03/07/18 03/07/18 00:09 04:40 11:28 RDW [place] % (Auto) Eos % (Auto) Chloride Creatinine 0.7 L Glucose POC Glucose 127 H 129 H Calcium 7.9 L Total Creatine Kinase Total Protein Albumin 03/07/18 03/08/18 03/08/18 16:06 04:33 04:33 RDW 15.3 H [place] % (Auto) 11.4 H Eos % (Auto) 7.2 H Ch[place] 109.2 H Creatinine 0.6 L Glucose POC Glucose 124 H Calcium 8.0 L Total Creatine Kinase Total Protein 5.8 L Albumin 3.5 L 03/08/18 03/09/18 03/09/18 17:01 01:58 04:27 RDW [place] % (Auto) Eos % (Auto) Chloride Creatinine Glucose POC Glucose 127 H 110 H 121 H Calcium Total Creatine Kinase Total Protein Albumin 03/09/18 03/09/18 03/09/18 07:39 11:41 16:03 RDW [place] % (Auto) Eos % (Auto) Chloride Creatinine Glucose POC Glucose 107 H 122 H 139 H Calcium Total Creatine Kinase Total Protein Albumin 03/10/18 03/10/18 06:40 06:40 RDW 15.9 H [place] % (Auto) Eos % (Auto) Chloride Creatinine Glucose POC Glucose Calcium 8.3 L Total Creatine Kinase Total Protein Albumin Chest x-ray: report reviewed, image reviewed
[2018-03-10] MEDS: KEPPRA PO SCH (14:00)
[2018-03-10] MEDS ORDERED: KEPPRA PO SCH (22:00)
[2018-03-11] MEDS: LIORESAL PO SCH ×2 (09:16→13:30)
[2018-03-11] MEDS ORDERED: DELTASONE PO SCH (10:00)
[2018-03-11] MEDS: HEPARIN SUB-Q SCH (10:43)
[2018-03-11] MEDS: PROTONIX PO SCH (10:43)
[2018-03-11] MEDS: MIRALAX 3350 PO SCH (10:43)
[2018-03-11] MEDS: SODIUM CHLORIDE FLUSH SYRINGE 10 ML IV SCH (10:44)
[2018-03-11] MEDS: KEPPRA PO SCH (10:56)
--- NOTE | 2018-03-11 14:07 | Progress Note ---
Assessment and Plan Imp: 1. Seizure disorder 2. Hypoglycemia, unclear etiology; r/o insulinoma 3. Hypotension 4. Acute encephalopathy Rec: 1. AEDs per neuro 2. Steroids were started due to hypoglycemia of unknown etiology; random cortisol was normal; changed to Prednisone 30mg daily and would taper slowly from there; BP remains low but he also had intermittent hypotension during 2017 admission; would consider trial of Midodrine 3. DVT PPx 4. C-peptide is elevated at ~ 6; consider work-up for insulinoma; will defer to primary team 5. No active pulmonary issues; will sign off; please call with questions, or if new issues arise Plan of care reviewed with patient/care-medical lab assistant, they understand/agree Subjective Date of service: 03/11/18 Principal diagnosis: Seizures Interval history: No events. On RA. No complaints. No seizures. Active Medications Acetaminophen (Tylenol) 650 mg PO Q4H PRN PRN Reason: Pain MILD(1-3)/Fever >100.5/[place] Baclofen (Lioresal) 10 mg PO TID [facility] Last Admin: 03/11/18 13:30 Dose: 10 mg Docusate Sodium (Colace) 100 mg PO BID PRN PRN Reason: Bowel Movement Heparin Sodium (Porcine) (Heparin) 5,000 unit SUB-Q Q12HR [facility] Last Admin: 03/11/18 10:43 Dose: 5,000 unit Hydralazine HCl (Apresoline) 100 mg PO Q4HR PRN PRN Reason: Hypertension Levetiracetam (Keppra) 1,000 mg PO DAILY [facility] Last Admin: 03/11/18 10:56 Dose: 1,000 mg Levetiracetam (Keppra) 2,000 mg PO QHS [facility] Last Admin: 03/10/18 22:31 Dose: 2,000 mg Lorazepam (Ativan) 1 mg IV Q4H PRN PRN Reason: Seizures Ondansetron HCl (Zofran) 4 mg IV Q8H PRN PRN Reason: Nausea And Vomiting Pantoprazole Sodium (Protonix) 40 mg PO QDAY [facility] Last Admin: 03/11/18 10:43 Dose: 40 mg Polyethylene Glycol (Miralax 3350) 17 gm PO QDAY [facility] Last Admin: 03/11/18 10:43 Dose: 17 gm Prednisone (Deltasone) 30 mg PO QDAY [facility] Last Admin: 03/11/18 10:43 Dose: 30 mg Sodium Chloride (Sodium Chloride Flush Syringe 10 Ml) 10 ml IV BID [facility] Last Admin: 03/11/18 10:44 Dose: 10 ml Sodium Chloride (Sodium Chloride Flush Syringe 10 Ml) 10 ml IV PRN PRN PRN Reason: LINE FLUSH Objective Vital Signs - 12hr 03/11/18 03/11/18 08:15 10:00 Temperature 98.3 F Pulse Rate 69 Respiratory 18 Rate Blood Pressure 84/44 O2 Sat by Pulse 94 95 Oximetry Constitutional: no acute distress, alert Eyes: non-icteric ENT: oropharynx moist Neck: supple Effort: normal Ascultation: Bilateral: clear Cardiovascular: regular rate and rhythm (no mrg) Gastrointestinal: normoactive bowel sounds Integumentary: normal Extremities: no cyanosis Neurologic: normal mental status, pupils equal and round, other (R hemiparesis) Psychiatric: mood appropriate, affect normal CBC and BMP: 03/10/18 06:40 03/10/18 06:40 Abnormal lab findings: Abnormal Labs 03/06/18 03/06/18 03/06/18 22:50 23:13 23:13 RDW 15.6 H [place] % (Auto) 8.7 H Eos % (Auto) 7.0 H Chloride Creatinine Glucose 157 H POC Glucose 60 L C-Peptide Calcium 8.2 L Total Creatine Kinase 313 H Total Protein 5.9 L Albumin 3.8 L 03/07/18 03/07/18 03/07/18 00:09 04:40 11:28 RDW [place] % (Auto) Eos % (Auto) Chloride Creatinine 0.7 L Glucose POC Glucose 127 H 129 H C-Peptide Calcium 7.9 L Total Creatine Kinase Total Protein Albumin 03/07/18 03/07/18 03/08/18 12:49 16:06 04:33 RDW 15.3 H [place] % (Auto) 11.4 H Eos % (Auto) 7.2 H Chloride Creatinine Glucose POC Glucose 124 H C-Peptide 6.72 H Calcium Total Creatine Kinase Total Protein Albumin 03/08/18 03/08/18 03/09/18 04:33 17:01 01:58 RDW [place] % (Auto) Eos % (Auto) Chloride 109.2 H Creatinine 0.6 L Glucose POC Glucose 127 H 110 H C-Peptide Calcium 8.0 L Total Creatine Kinase Total Protein 5.8 L Albumin 3.5 L 03/09/18 03/09/18 03/09/18 04:27 07:39 11:41 RDW [place] % (Auto) Eos % (Auto) Chloride Creatinine Glucose POC Glucose 121 H 107 H 122 H C-Peptide Calcium Total Creatine Kinase Total Protein Albumin 03/09/18 03/10/18 03/10/18 16:03 06:40 06:40 RDW 15.9 H [place] % (Auto) Eos % (Auto) Chloride Creatinine Glucose POC Glucose 139 H C-Peptide Calcium 8.3 L Total Creatine Kinase Total Protein Albumin Chest x-ray: report reviewed, image reviewed
--- NOTE | 2018-03-11 15:55 | Discharge Summary ---
Providers - Providers Date of Admission: 03/07/18 03:58 Attending physician: GIOVANY LEI MD 03/07/18 03:58 Consult to Physician [CONS] Routine Comment: Consulting Provider: EN RICH Physician Instructions: Reason For Exam: seizure disorder 03/07/18 08:54 Consult to Physician [CONS] Routine Comment: Consulting Provider: ELENO BURCIAGA Physician Instructions: Reason For Exam: ICU management 03/08/18 19:46 Speech Therapy Evaluation and Treat [CONS] Routine Reason For Exam: dysphagia 03/09/18 14:00 Physical Therapy Evaluation and Treat [CONS] Routine Comment: Reason For Exam: deconditioning Primary care physician: DI HOBBS Hospitalization Condition: Fair Hospital course: Patient is a 62 yo man from [facility] with a 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 He was found to be hypoglycemic (he doesn' t have a history of DM), BG was 55 and hypotensive which did not respond to IV fluid resuscitation; therefore, right femoral central line placed and Levophed IV drip started and admitted to ICU. [employer], Mr. Jain says that he has not had his baseline mental status and that he is usually verbal and conversive. * pCXR IMPRESSION: Diffuse chronic obstructive changes. There is volume loss with slight atelectasis left lower lung. * CT HEAD/BRAIN WO CON IMPRESSION: There is been previous large left temporal craniectomy. Large area and soft malacia in the left frontal and temporal lobes is noted. Moderate atrophy and slight periventricular deep white matter change. There is no evidence of an acute intracranial hemorrhage, hematoma or infarction. -Acute encephalopathy due to seizures and hypotension: continue to treat the sz and low bp -Hypoglycemia: treat with iv dextrose additive and repeat levels, check A1C -Hypotension with hypovolemic shock: On Levophed drip down to 3 mcg, on D5NS at 100 ml/hr, trying to wean off Levophed -Intractable Seizures: Cont IV keppra, Transition to PO Keppra, prn iv Ativan -Right groin TLC day 2: I have asked the nurse to place condom catheter, due to right groin saturated with urine around TLC -Diffuse chronic rash: continue to monitor -DVT prophylaxis: On Heparin IV Levophed drip weaned off, will transfer to medical floor added baclofen for right arm spasms Disposition: [id number]/[place]-[id number] [facility] Time spent for discharge: 33 minutes Core Measure Documentation - Palliative Care Palliative Care/ Comfort Measures: Not Applicable - Core Measures Any of the following diagnoses?: none Exam - Constitutional Vitals: Temp Pulse Resp BP Pulse Ox 98.3 F 69 18 84/44 95 03/11/18 08:15 03/11/18 08:15 03/11/18 08:15 03/11/18 08:15 03/11/18 10:00 General appearance: Present: no acute distress, well-nourished - EENT Eyes: Present: PERRL ENT: hearing intact, clear oral mucosa - Neck Neck: Present: supple, normal ROM - Respiratory Respiratory effort: normal Respiratory: bilateral: CTA - Cardiovascular Heart Sounds: Present: S1 & S2. Absent: rub, click - Extremities Extremities: pulses symmetrical, No edema Peripheral Pulses: within normal limits - Abdominal General gastrointestinal: Present: soft, non-tender, non-distended, normal bowel sounds Male genitourinary: Present: normal - Integumentary Integumentary: Present: clear, warm, dry - Musculoskeletal Musculoskeletal: gait normal, strength equal bilaterally - Psychiatric Psychiatric: appropriate mood/affect, intact judgment & insight - Neurologic Neurologic: CNII-XII intact, moves all extremities Plan Follow up with: DI HOBBS MD [Primary Care Provider] - 3-5 Days Prescriptions: levETIRAcetam [Keppra TAB] 2,000 mg PO QHS 30 Days tablet Baclofen [Lioresal] 10 mg PO TID #90 tablet levETIRAcetam [Keppra TAB] 1,000 mg PO DAILY 30 Days tablet predniSONE [Deltasone] 30 mg PO QDAY 12 Days tablet
[2018-03-11 17:24] VITALS: BP 98/61
== END 2018-03-11 19:40 | disposition home health service (06) | DRG 100 ==
LOC: ED 22:32 → CC1 03-07 03:58 → 3A 03-09 17:40
PROVIDERS: ADMIT Internal Medicine; ATTEND Internal Medicine
DX: G40.909 Epilepsy, unspecified, not intractable, without status epilepticus (principal); R57.1 Hypovolemic shock; I95.9 Hypotension, unspecified; Z87.820 Personal history of traumatic brain injury; E16.2 Hypoglycemia, unspecified; R21 Rash and other nonspecific skin eruption; I10 Essential (primary) hypertension; M19.90 Unspecified osteoarthritis, unspecified site; J44.9 Chronic obstructive pulmonary disease, unspecified; Z60.2 Problems related to living alone; Z91.010 Allergy to peanuts; Z88.0 Allergy status to penicillin; Z91.018 Allergy to other foods; K21.9 Gastro-esophageal reflux disease without esophagitis
CPT/HCPCS: 36415; 70450; 71045; 80048; 80053; 81001; 82140; 82533; 82550; 82962; 83036; 83735; 84439; 84443; 84681; 85025; 85027; 93005; 93010; 94760; G8978-GP; G8979-GP; G8996-GN; G8997-GN; J1644; J1720; J1953; J2060; J7030; J7040; J7042; J7512

== ENCOUNTER 2018-11-30 23:13 | Inpatient (IN) | payer MEDICARE ==
[2018-11-30] MEDS ORDERED: KEPPRA 1,000 MG/NS 0.75% 100ML 1,000 MG/100 ML BAG IV ONE (23:20)
[2018-11-30 23:55] LABS: Basophils # (Auto) 0.1 K/mm3 (0.0-0.1); Basophils % (Auto) 0.9 % (0.0-1.8); Eosinophils # (Auto) 0.4 K/mm3 (0.0-0.4); Eosinophils % (Auto) 4.9 % (0.0-4.3); Hematocrit 41.9 % (35.5-45.6); Hemoglobin 14.9 gm/dl (11.8-15.2); Lymphocytes # (Auto) 2.7 K/mm3 (1.2-5.4); Lymphocytes % (Auto) 32.4 % (13.4-35.0); Mean Corpuscular HGB Conc 36 % (32-34); Mean Corpuscular Volume 89 fl (84-94); Monocytes # (Auto) 0.8 K/mm3 (0.0-0.8); Monocytes % (Auto) 9.5 % (0.0-7.3); Platelet Count 218 K/mm3 (140-440); Red Blood Count 4.69 M/mm3 (3.65-5.03); Red Cell Distribution Width 13.8 % (13.2-15.2)
[2018-12-01 00:12] LABS: Alanine Aminotransferase 12 units/L (7-56); BUN/Creatinine Ratio 16; Blood Urea Nitrogen 14 mg/dL (9-20); Calcium 8.4 mg/dL (8.4-10.2); Hemolysis Index 29
[2018-12-01] MEDS ORDERED: NACL 0.9% 1000 ML 1,000 ML IV ONE ×2 (00:47→01:52)
[2018-12-01] MEDS ORDERED: ATIVAN IV ONE (00:47)
[2018-12-01] MEDS ORDERED: ATIVAN ONE (00:51)
[2018-12-01] MEDS ORDERED: NACL 0.9% 1000 ML 1,000 ML ONE (00:51)
--- NOTE | 2018-12-01 00:54 | Cat Scan Report ---
PROCEDURE: CT HEAD/BRAIN WO CON TECHNIQUE: Computerized tomography of the head was performed without contrast material. CT DOSE LENGTH PRODUCT: mGycm HISTORY: Seizure COMPARISONS: None . FINDINGS: Skull and scalp: Single large left frontal and temporal craniotomy defect. . Paranasal sinuses: Normal . Ventricles and subarachnoid spaces: There is asymmetry of the lateral ventricles with ex vacuo dilat ation of the left lateral ventricle. . Cerebrum: There is extensive encephalomalacia in the left hemisphere consistent with old surgery or injury. There is no hemorrhage, edema or mass. . Cerebellum and brainstem: No evidence of hemorrhage, acute infarction or mass . Vasculature: Normal . IMPRESSION: Single large left frontal and temporal craniotomy defect. . There is asymmetry of the lateral ventricles with ex vacuo dilatation of the left lateral ventricle. . There is extensive encephalomalacia in the left hemisphere consistent with old surgery or injury. The re is no hemorrhage, edema or mass. . . This document is electronically signed by Sandro Kilgore MD., December 01 2018 12:51:56 AM ET
--- NOTE | 2018-12-01 01:04 | Emergency Department Report ---
HPI - General Chief Complaint: Seizure Time Seen by Provider: 11/30/18 23:16 - HPI HPI: This is a 62-year-old male who presents [facility] the emergency department [facility] with complaint of multiple consecutive seizures prior to arrival. The patient has a past medical history of previous subdural hematoma with craniotomy, CVA with some right-sided deficits, seizure disorder and asthma. He is on Keppra and Vimpat for his seizures. The patient is mostly nonverbal except for saying yes or no. He is a poor historian at baseline. ED Past Medical Hx - Past Medical History Previous Medical History?: Yes Hx Hypertension: Yes Hx CVA: Yes (right sided weakness) Hx Congestive Heart Failure: No Hx Diabetes: Yes Hx Deep Vein Thrombosis: No Hx Liver Disease: No Hx Renal Disease: No Hx Arthritis: Yes Hx Seizures: No Hx Asthma: Yes Hx COPD: Yes Hx HIV: No Additional medical history: Patient is not a good historian. Lives alone. Subdural hematoma - Surgical History Past Surgical History?: Yes Hx Pacemaker: No Hx Internal Defibrillator: No Additional Surgical History: craniotomy, tracheostomy - Social History Smoking Status: Never Smoker Substance Use Type: Prescribed - Medications Home Medications: Home Medications Medication Instructions Recorded Confirmed Last Taken Type Docusate Sodium [Colace CAP] 100 mg PO BID PRN #60 capsule 10/12/17 03/07/18 Unknown Rx Famotidine [Pepcid] 20 mg PO BID #30 tablet 10/12/17 03/07/18 03/06/18 Rx Polyethylene Glycol 3350 [Miralax 17 gm PO QDAY #60 packet 10/12/17 03/07/18 03/06/18 Rx 3350] hydrALAZINE [Apresoline TAB] 100 mg PO Q4HR PRN #60 tab 10/12/17 03/07/18 Unknown Rx Acetaminophen [Acetaminophen 8 650 mg PO Q6H PRN 10/18/17 03/07/18 Unknown History Hour] Ondansetron [Zofran TAB] 4 mg PO Q8HR PRN 10/18/17 03/07/18 Unknown History Dulcolax tab 10 mg PO DAILY PRN 03/07/18 03/07/18 Unknown History Promethazine 25 mg PO Q4H PRN 06/09/18 06/09/18 Unknown History Transderm-Scop 1.5 mg TD Q3D PRN 03/07/18 03/07/18 Unknown History Baclofen [Lioresal] 10 mg PO TID #90 tablet 03/11/18 Unknown Rx levETIRAcetam [Keppra TAB] 1,000 mg PO DAILY 30 Days tablet 03/11/18 Unknown Rx levETIRAcetam [Keppra TAB] 2,000 mg PO QHS 30 Days tablet 03/11/18 Unknown Rx predniSONE [Deltasone] 30 mg PO QDAY 12 Days tablet 03/11/18 Unknown Rx ED Review of Systems ROS: Stated complaint: SEIZURES Other details as noted in HPI Comment: Unobtainable due to pts medical conditions Physical Exam - Physical Exam Vital Signs: Vital Signs 11/30/18 11/30/18 11/30/18 23:15 23:18 23:36 Temperature 98.5 F Pulse Rate 107 H Respiratory 19 Rate Blood Pressure 129/79 11/30/18 12/01/18 12/01/18 23:46 00:00 00:16 Temperature Pulse Rate 103 H 105 H 114 H Respiratory 21 20 22 Rate Blood Pressure 12/01/18 00:30 Temperature Pulse Rate 118 H Respiratory 26 H Rate Blood Pressure Physical Exam: GENERAL: The patient is well-developed well-nourished. HEENT: Normocephalic. Atraumatic. Patient has moist mucous membranes. EYES: Extraocular motions are intact. NECK: Supple. Trachea is midline. CHEST/LUNGS: Clear to auscultation. There is no respiratory distress noted. HEART/CARDIOVASCULAR: Regular. There is no tachycardia. There is no obvious murmur. ABDOMEN: Abdomen is soft, nontender. Patient has normal bowel sounds. There is no abdominal distention. SKIN: Skin is warm and dry. NEURO: Patient is awake and follows some commands. Chronic right-sided weakness. We'll try some painful stimuli. MUSCULOSKELETAL: Right upper extremity contracture. Radial pulse +2 over 4 and capillary refill less than 2 seconds. ED Course Vital Signs 11/30/18 11/30/18 11/30/18 23:15 23:18 23:36 Temperature 98.5 F Pulse Rate 107 H Respiratory 19 Rate Blood Pressure 129/79 11/30/18 12/01/18 12/01/18 23:46 00:00 00:16 Temperature Pulse Rate 103 H 105 H 114 H Respiratory 21 20 22 Rate Blood Pressure 12/01/18 00:30 Temperature Pulse Rate 118 H Respiratory 26 H Rate Blood Pressure ED Medical Decision Making - Lab Data Result diagrams: 11/30/18 23:41 11/30/18 23:41 - EKG Data -: EKG Interpreted by Me EKG shows normal: sinus rhythm, axis, intervals, QRS complexes, ST-T waves Rate: normal - EKG Data When compared to previous EKG there are: previous EKG unavailable Interpretation: normal EKG - Radiology Data Radiology results: report reviewed PROCEDURE: CT HEAD/BRAIN WO CON TECHNIQUE: Computerized tomography of the head was performed without contrast material. CT DOSE LENGTH PRODUCT: mGycm HISTORY: Seizure COMPARISONS: None . FINDINGS: Skull and scalp: Single large left frontal and temporal craniotomy defect. . Paranasal sinuses: Normal . Ventricles and subarachnoid spaces: There is asymmetry of the lateral ventricles with ex vacuo dilatation of the left lateral ventricle. . Cerebrum: There is extensive encephalomalacia in the left hemisphere consistent with old surgery or injury. There is no hemorrhage, edema or mass. . Cerebellum and brainstem: No evidence of hemorrhage, acute infarction or mass . Vasculature: Normal . IMPRESSION: Single large left frontal and temporal craniotomy defect. . There is asymmetry of the lateral ventricles with ex vacuo dilatation of the left lateral ventricle. . There is extensive encephalomalacia in the left hemisphere consistent with old surgery or injury. There is no hemorrhage, edema or mass. . . This document is electronically signed by Keyanna Zamudio MD., December 01 2018 12:51:56 AM ET Transcribed By: CO Dictated By: KEYANNA ZAMUDIO MD Electronically Authenticated By: KEYANNA ZAMUDIO MD Signed Date/Time: 12/01/18 0054 - Medical Decision Making This patient [facility] with multiple and/or recurrent seizures prior to arrival. While in the emergency department, the patient also appears to have some short but recurrent seizures. He was given some extra Keppra and a dose of Ativan. The Ativan appeared to he lp provide transiently dropped his blood pressure. Labs have been unremarkable. CT scan of the head without contrast did not show any acute bleed, shift, mass, ischemia or any other acute process. The patient will be admitted to the hospital for further evaluation and has been accepted for admission by the hospitalist, Dr Mitchell. - Differential Diagnosis epilepy, brain bleed, dysrythmia, hypoglycemia Critical Care Time: No Critical care attestation.: If time is entered above; I have spent that time in minutes in the direct care of this critically ill patient, excluding procedure time. ED Disposition Clinical Impression: Seizure disorder, Recurrent seizures Disposition: OP ADMIT IP TO THIS HOSP Is pt being admited?: Yes Condition: Serious Referrals: TANYA LINDA MD [Staff Physician] - 3-5 Days Time of Disposition: 01:49
[2018-12-01] MEDS ORDERED: APRESOLINE PO PRN (02:25)
[2018-12-01] MEDS ORDERED: [UNRECOGNIZED DRUG - OTHER] TD PRN (02:25)
[2018-12-01] MEDS ORDERED: BISACODYL 10 MG PO PRN (02:29)
[2018-12-01] MEDS ORDERED: COLACE PO PRN (02:29)
[2018-12-01] MEDS ORDERED: DULCOLAX PO PRN (02:47)
[2018-12-01] MEDS ORDERED: TRANSDERM-SCOP TD PRN (02:49)
[2018-12-01 04:37] LABS: Bilirubin,Urine NEG (Negative); Blood,Urine NEG (Negative); Color,Urine Yellow (Yellow); Protein,Urine <15 mg/dL mg/dL (Negative); Urobilinogen,Urine < 2.0 mg/dL (<2.0); WBC,Urine < 1.0 /HPF (0.0-6.0)
[2018-12-01] MEDS: ATIVAN IV PRN ×4 (06:22→23:36)
--- NOTE | 2018-12-01 07:47 | History and Physical Report ---
CHIEF COMPLAINT: Recurrent seizure attack. HISTORY OF PRESENTING ILLNESS: The patient is a 62-year-old male with history of seizure disorder and traumatic brain injury, who was having seizure attack back to back prior to arrival at the Emergency Room. The patient's family says that he is compliant with his treatments of Keppra and Vimpat for seizure and was having the attack and was subsequently brought to the Emergency Room. There was no history of fever or chills. No history of trauma following the seizure attack, has no history of chest pain, nausea or vomiting or urinary incontinence. PAST MEDICAL HISTORY: Pertinent for hypertension, cerebrovascular accident with right sided weakness, diabetes mellitus, arthritis. There is also past history of asthma, COPD and also the patient has past history of seizure disorder. PAST SURGICAL HISTORY: Pertinent for craniotomy and tracheostomy. FAMILY HISTORY: Family history is noncontributory. SOCIAL HISTORY: The patient stays at a halfway, does not smoke, does not drink alcohol and does not use illicit drugs. MEDICATIONS: The patient is on Colace 100 mg by mouth twice daily, famotidine 20 mg by mouth daily, MiraLax 17 grams by mouth daily, hydralazine 100 mg by mouth every 4 hours as needed for elevated blood pressure and Tylenol 650 mg by mouth every 6 hours. The patient is also on Zofran 4 mg every 8 hours as needed for nausea and vomiting and Dulcolax 10 mg by mouth daily as well as Phenergan 25 mg by mouth every 4 hours and transdermal scopolamine 1.5 mg transdermal every 3 days. Also, the patient is on baclofen 10 mg by mouth 3 times daily and Keppra 1000 mg by mouth in the daytime and 2000 mg by mouth at nighttime. The patient is also on prednisone 30 mg by mouth daily, which he will be taking for 12 days according to the listing. ALLERGIES: THE PATIENT IS ALLERGIC TO PENICILLIN, CHOCOLATE FLAVOR AND PEANUT. REVIEW OF SYSTEMS: CONSTITUTIONAL: There is no fever, no chills, no diaphoresis. HEENT: There is no headache or sore throat. CARDIOVASCULAR SYSTEM: There is no chest pain or orthopnea. RESPIRATORY SYSTEM: There is no shortness of breath or cough. GASTROINTESTINAL SYSTEM: There is no nausea, no vomiting, no abdominal pain, diarrhea or constipation. NEUROLOGICAL SYSTEM: Seizure attack noted. No numbness. Change in mental status noted. MUSCULOSKELETAL SYSTEM: There is no joint pain or swelling. DERMATOLOGICAL SYSTEM: There is no skin rash or itching. GENITOURINARY SYSTEM: There is no dysuria, hematuria, or flank pain and also there is no urinary continence. Rest of system review is normal. PHYSICAL EXAMINATION: GENERAL: At the time of exam, the patient was found to be lethargic, but easily arousable and not in acute distress. VITAL SIGNS: Vital signs at the initial time of presentation show a temperature of 98.5 degrees Fahrenheit, pulse of 107, respirations 19, blood pressure 129/79, normal O2 sats. HEENT: Show pupils to be equal, round, reactive to light and accommodating. Extraocular muscles are intact. NECK: Supple with no JVD or carotid bruit. CARDIOVASCULAR SYSTEM: Showed normal first and second heart sounds with no gallops or murmurs. RESPIRATORY SYSTEM: Show good air entry on both sides of the lungs with no abnormal breath sounds. GASTROINTESTINAL SYSTEM: Show abdomen to be full, soft, nontender with no organomegaly or rigidity. NEUROLOGIC: Neuro exam shows no focal deficit. MUSCULOSKELETAL SYSTEM: Show no joint swelling or tenderness. DERMATOLOGICAL SYSTEM: Show no skin rash. GENITOURINARY SYSTEM: Showing no costovertebral angle tenderness. PERTINENT LABORATORY DATA AND IMAGING STUDIES: The patient has CT of the head without contrast done that shows asymmetry of the lateral ventricle with ex vacuo dilatation of the left lateral ventricle. There is extensive encephalomalacia in the left hemisphere consistent with both surgery or injury. There is no hemorrhage currently, no edema or mass effect. Lab results; the patient has CBC done with normal white count, normal hemoglobin and normal hematocrit with CBC differential showing elevated monocyte count of 9.5% and elevated eosinophilic count of 4.9%. The patient's chemistry was unremarkable except for increase in total CPK of 427 with normal troponin level. The patient's urinalysis came back unremarkable. DIAGNOSIS: Recurrent seizure attack. PLAN OF CARE: 1. The patient will be admitted to telemetry. 2. The patient will have Neurology consult with Dr. Rosen. 3. The patient will be on his home medications that include Keppra morning and night doses. 4. The patient will be on IV Ativan 1 mg every 2 hours as needed for seizure attack. 5. The patient will be on oxygen by nasal cannula at 2 liters per minute. JOB# [id number] OCN/NTS
--- NOTE | 2018-12-01 08:50 | Progress Note ---
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 Cash Applications Specialist, Mr. Jain says that he has not had his baseline mental status and that he is usually verbal and conversive. He is on 2000 mg of keppra bid by his PCP, Dr. Esme Matthew, which is over the maxiumum of 3000/day. So, I called his Neurologist, Dr. Braswell's cell phone and left a message. Dr. Braswell called me back, pt last seen 11/08/18 and on keppra 2000 mg bid and Vimpat 50mg am. Pt still having seizures, and instructed me to increase Vimpat to 100 mg bid and look for infection Status epilepticus: continue keppra, use iv ativan prn for breakthrough sz, consulted Neurology Hypotension: closely monitor TBI: Aspiration precautions History Interval history: Patient was seen and examined. Follow-up on current diagnosis of Seizures. Overnight uneventful. Patient denies any chest pain, shortness breath, nausea/vomiting or severe headaches. Imaging, nursing note, chart, labs and old chart reviewed. Discussed with patient. 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0 F 68 20 89/46 95 12/01/18 06:08 12/01/18 06:08 12/01/18 06:08 12/01/18 06:08 12/01/18 06:08 Results - Labs CBC & Chem 7: 11/30/18 23:41 11/30/18 23:41 Labs: Laboratory Last Values WBC 8.4 K/mm3 (4.5-11.0) 11/30/18 23:41 RBC 4.69 M/mm3 (3.65-5.03) 11/30/18 23:41 Hgb 14.9 gm/dl (11.8-15.2) 11/30/18 23:41 Hct 41.9 % (35.5-45.6) 11/30/18 23:41 MCV 89 fl (84-94) 11/30/18 23:41 MCH 32 pg (28-32) 11/30/18 23:41 MCHC 36 % (32-34) H 11/30/18 23:41 RDW 13.8 % (13.2-15.2) 11/30/18 23:41 Plt Count 218 K/mm3 (140-440) 11/30/18 23:41 Lymph % (Auto) 32.4 % (13.4-35.0) 11/30/18 23:41 [place] % (Auto) 9.5 % (0.0-7.3) H 11/30/18 23:41 Eos % (Auto) 4.9 % (0.0-4.3) H 11/30/18 23:41 Baso % (Auto) 0.9 % (0.0-1.8) 11/30/18 23:41 Lymph # 2.7 K/mm3 (1.2-5.4) 11/30/18 23:41 [place] # 0.8 K/mm3 (0.0-0.8) 11/30/18 23:41 Eos # 0.4 K/mm3 (0.0-0.4) 11/30/18 23:41 Baso # 0.1 K/mm3 (0.0-0.1) 11/30/18 23:41 Seg Neutrophils % 52.3 % (40.0-70.0) 11/30/18 23:41 Seg Neutrophils # 4.4 K/mm3 (1.8-7.7) 11/30/18 23:41 Sodium 144 mmol/L (137-145) 11/30/18 23:41 Potassium 4.3 mmol/L (3.6-5.0) 11/30/18 23:41 Chloride 106.7 mmol/L (98-107) 11/30/18 23:41 Carbon Dioxide 24 mmol/L (22-30) 11/30/18 23:41 Anion Gap 18 mmol/L 11/30/18 23:41 BUN 14 mg/dL (9-20) 11/30/18 23:41 Creatinine 0.9 mg/dL (0.8-1.5) 11/30/18 23:41 Estimated GFR > 60 ml/min 11/30/18 23:41 BUN/Creatinine Ratio 16 % 11/30/18 23:41 Glucose 93 mg/dL (75-100) 11/30/18 23:41 Calcium 8.4 mg/dL (8.4-10.2) 11/30/18 23:41 Total Bilirubin 0.30 mg/dL (0.1-1.2) 11/30/18 23:41 AST 24 units/L (5-40) 11/30/18 23:41 ALT 12 units/L (7-56) 11/30/18 23:41 Alkaline Phosphatase 100 units/L (35-129) 11/30/18 23:41 Ammonia 44.0 umol/L (25-60) 11/30/18 23:41 Total Creatine Kinase 427 units/L (55-170) H 11/30/18 23:41 Troponin T < 0.010 ng/mL (0.00-0.029) 11/30/18 23:41 Total Protein 6.5 g/dL (6.3-8.2) 11/30/18 23:41 Albumin 4.0 g/dL (3.9-5) 11/30/18 23:41 Albumin/Globulin Ratio 1.6 % 11/30/18 23:41 Urine Color Yellow (Yellow) 11/30/18 04:20 Urine Turbidity Clear (Clear) 11/30/18 04:20 Urine pH 5.0 (5.0-7.0) 11/30/18 04:20 Ur Specific [place] 1.016 (1.003-1.030) 11/30/18 04:20 Urine Protein <15 mg/dl mg/dL (Negative) 11/30/18 04:20 Urine Glucose (UA) Neg mg/dL (Negative) 11/30/18 04:20 Urine Ketones Neg mg/dL (Negative) 11/30/18 04:20 Urine Blood Neg (Negative) 11/30/18 04:20 Urine Nitrite Neg (Negative) 11/30/18 04:20 Urine Bilirubin Neg (Negative) 11/30/18 04:20 Urine Urobilinogen < 2.0 mg/dL (<2.0) 11/30/18 04:20 Ur Leukocyte Esterase Neg (Negative) 11/30/18 04:20 Urine WBC (Auto) < 1.0 /HPF (0.0-6.0) 11/30/18 04:20 Urine RBC (Auto) 2.0 /HPF (0.0-6.0) 11/30/18 04:20 U Epithel Cells (Auto) 1.0 /HPF (0-13.0) 11/30/18 04:20
[2018-12-01] MEDS: MIRALAX 3350 PO SCH (09:09)
[2018-12-01] MEDS: PEPCID PO SCH ×2 (09:09→22:35)
[2018-12-01] MEDS ORDERED: KEPPRA PO SCH ×3 (10:00→22:00)
[2018-12-01] MEDS: VIMPAT PO SCH ×2 (10:06→22:34)
[2018-12-01] MEDS: DELTASONE PO SCH (10:07)
[2018-12-01] MEDS ORDERED: KEPPRA PO NR (10:10)
--- NOTE | 2018-12-01 12:57 | Progress Note ---
Subjective Date of service: 12/01/18 Interval history: patyient went into status seizures on the right side of body PMH of traumatic head injury plan w/u for same EEG ordered agree with the current meds as outlined by Dr. Meño Martin follows the patient Objective - Vital Sign Vital Signs - 12hr 12/01/18 12/01/18 12/01/18 01:00 01:16 01:30 Temperature Pulse Rate 106 H 104 H 97 H Respiratory 23 20 19 Rate Blood Pressure 108/43 85/45 87/47 Blood Pressure [Left] O2 Sat by Pulse Oximetry 12/01/18 12/01/18 12/01/18 01:45 02:00 02:15 Temperature Pulse Rate 99 H 93 H 93 H Respiratory 19 18 21 Rate Blood Pressure 85/42 89/48 93/48 Blood Pressure [Left] O2 Sat by Pulse Oximetry 12/01/18 12/01/18 12/01/18 02:30 02:45 03:00 Temperature Pulse Rate 89 86 84 Respiratory 19 19 19 Rate Blood Pressure 90/50 93/44 95/48 Blood Pressure [Left] O2 Sat by Pulse Oximetry 12/01/18 12/01/18 12/01/18 03:15 03:30 03:40 Temperature Pulse Rate 83 83 85 Respiratory 20 20 16 Rate Blood Pressure 99/52 93/48 93/48 Blood Pressure [Left] O2 Sat by Pulse Oximetry 12/01/18 12/01/18 12/01/18 03:50 04:00 04:10 Temperature Pulse Rate 79 82 89 Respiratory 18 18 18 Rate Blood Pressure 98/50 90/48 93/48 Blood Pressure [Left] O2 Sat by Pulse Oximetry 12/01/18 12/01/18 12/01/18 04:20 06:08 08:51 Temperature 98.0 F Pulse Rate 85 68 65 Respiratory 18 20 16 Rate Blood Pressure 86/45 89/46 Blood Pressure 91/50 [Left] O2 Sat by Pulse 95 Oximetry 12/01/18 12/01/18 12/01/18 09:01 09:19 10:11 Temperature 98.0 F Pulse Rate 64 85 66 Respiratory 16 Rate Blood Pressure Blood Pressure 83/59 100/49 105/55 [Left] O2 Sat by Pulse 98 Oximetry 12/01/18 12/01/18 12:03 12:43 Temperature Pulse Rate 66 Respiratory Rate Blood Pressure Blood Pressure [Left] O2 Sat by Pulse 96 Oximetry - Laboratory Findings CBC and BMP: 11/30/18 23:41 11/30/18 23:41 Abnormal Lab Findings: Abnormal Labs 11/30/18 11/30/18 23:41 23:41 MCHC 36 H [place] % (Auto) 9.5 H Eos % (Auto) 4.9 H Total Creatine Kinase 427 H
--- NOTE | 2018-12-01 14:55 | XRay Report ---
AP CHEST: HISTORY: Seizures, cough The left hemidiaphragm is elevated. There is compressive atelectasis at the left lung base. The left upper lung and right lung are generally clear. Mild cardiomegaly and borderline pulmonary venous congestion are identified. IMPRESSION: Elevated left hemidiaphragm. Mild cardiomegaly. No overwhelming change since 03/06/18.
[2018-12-01] MEDS: KEPPRA PO SCH (22:35)
[2018-12-02 08:07] LABS: BUN/Creatinine Ratio 11; Blood Urea Nitrogen 8 mg/dL (9-20); Calcium 7.8 mg/dL (8.4-10.2); Hemolysis Index 6
[2018-12-02 08:37] LABS: Hematocrit 41.4 % (35.5-45.6); Mean Platelet Volume 8.4 fl (6-12); Red Blood Count 4.67 M/mm3 (3.65-5.03); Red Cell Distribution Width 14.1 % (13.2-15.2)
[2018-12-02] MEDS: DELTASONE PO SCH (09:17)
[2018-12-02] MEDS: VIMPAT PO SCH (09:18)
[2018-12-02] MEDS: PEPCID PO SCH (09:18)
[2018-12-02] MEDS: KEPPRA PO SCH (09:18)
[2018-12-02] MEDS: MIRALAX 3350 PO SCH (10:00)
[2018-12-02] MEDS: DUONEB *Not for PRN Use IH SCH ×3 (12:20→19:25)
[2018-12-02] MEDS: ATIVAN IV PRN (13:21)
[2018-12-02] MEDS ORDERED: NACL IV ONE (13:30)
[2018-12-02] MEDS ORDERED: [UNRECOGNIZED DRUG - OTHER] IV ONE (13:30)
[2018-12-02] MEDS ORDERED: CEREBYX IV ONE ×2 (13:30)
--- NOTE | 2018-12-02 13:54 | Progress Note ---
Subjective Date of service: 12/02/18 Interval history: seen on the floor for the stat code addressed all issues and rec transfer to unit load with fosphenytoin on vimpat and keppra Pulse OX better on the o2 mask Objective - Vital Sign Vital Signs - 12hr 12/02/18 12/02/18 12/02/18 03:26 08:36 09:39 Temperature 98.0 F 98.7 F Pulse Rate 82 Pulse Rate [ Bilateral] Pulse Rate [ Throughout] Respiratory 20 18 20 Rate Respiratory Rate [Bilateral ] Respiratory Rate [ Throughout] Blood Pressure 108/77 112/69 O2 Sat by Pulse 94 95 Oximetry 12/02/18 12/02/18 12/02/18 10:51 12:07 12:20 Temperature 100.3 F H Pulse Rate 139 H Pulse Rate [ 88 Bilateral] Pulse Rate [ 88 Throughout] Respiratory 20 Rate Respiratory 16 Rate [Bilateral ] Respiratory 16 Rate [ Throughout] Blood Pressure 149/81 O2 Sat by Pulse 95 89 Oximetry - Laboratory Findings CBC and BMP: 12/02/18 06:57 12/02/18 06:57 Abnormal Lab Findings: Abnormal Labs 11/30/18 11/30/18 12/02/18 23:41 23:41 06:57 MCHC 36 H [place] % (Auto) 9.5 H Eos % (Auto) 4.9 H POC ABG pH POC ABG pCO2 POC ABG pO2 BUN 8 L Creatinine 0.7 L Calcium 7.8 L Total Creatine Kinase 427 H 12/02/18 12:24 MCHC [place] % (Auto) Eos % (Auto) POC ABG pH 7.229 L POC ABG pCO2 59.9 H POC ABG pO2 76 L BUN Creatinine Calcium Total Creatine Kinase
[2018-12-02 14:24] LABS: Hematocrit 44.8 % (35.5-45.6); Hemoglobin 15.5 gm/dl (11.8-15.2); Mean Corpuscular HGB Conc 35 % (32-34); Mean Corpuscular Volume 90 fl (84-94); Platelet Count 218 K/mm3 (140-440); Red Blood Count 4.98 M/mm3 (3.65-5.03)
[2018-12-02 14:48] LABS: BUN/Creatinine Ratio 13; Blood Urea Nitrogen 10 mg/dL (9-20); Hemolysis Index 16
[2018-12-02] MEDS ORDERED: VERSED IV PRN (15:03)
[2018-12-02] MEDS ORDERED: ARTIFICIAL TEARS OPHTH OINT OU PRN (15:03)
--- NOTE | 2018-12-02 15:03 | Event Note ---
Date: 12/02/18 (ICU Emergent Intubation) Emergently called to ICU 253 for intubation. Pt s/p status epilepticus Meds: Etomidate 10mg + Ingrid 200mg----> IV Infiltrated. #18g IV started in RF X 1 attempt Meds: Etomidate 20mg + Ingrid 100mg Glidescope 4 X 1 attempt. 7.5 OETT 23cm @ gumline +BBS and +ETCO2 witnessed by two others. VSS RT, RN, and Dr. Wilder all present at bedside
--- NOTE | 2018-12-02 15:12 | Progress Note ---
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 Capacity Manager, Mr. Jain says that he has not had his baseline mental status and that he is usually verbal and conversive. He is on 2000 mg of keppra bid by his PCP, Dr. Esme Matthew, which is over the maxiumum of 3000/day. So, I called his Neurologist, Dr. Braswell's cell phone and left a message. Dr. Braswell called me back, pt last seen 11/08/18 and on keppra 2000 mg bid and Vimpat 50mg am. Pt still having seizures, and instructed me to increase Vimpat to 100 mg bid and look for infection Acute respiratory failure s/p ETT intubation for airway protection: consulted CCM Acute encephalopathy from seizures, poa: control the seizures, use iv Versed drip Acidosis on ABG; consulted Pulmonology Status epilepticus: continue keppra, use iv ativan prn for breakthrough sz, consulted Neurology==iv load with fosphenytoin and ordered maintenance dosing Hypotension: closely monitor TBI: Aspiration precautions Low grade temp: cxr yesterday unremarkable, get bctx, empiric treat with abx, use levaquin due to pcn allergy Chronic steroid use: started iv solu cortef while npo DVT prophylaxis Advance directives discussed with poa Mr. Mary and our ex trust manager assistant, Ame Cooney CCT 34 minutes History Interval history: Patient was seen and examined. Follow-up on current diagnosis of Seizures. Patient is having recurrent seizures. He is having stridor. Code met called, I sent to ICU for intubation. He received his morning 2000 mg po keppra and 100mg vimpat this morning. He had recurrent seizures, iv ativan given and he continued to have seizures. Dr. Rosen came. In the icu, tele monitor not working, we had to change rooms and that tele monitor was working. I started IV fosphenytoin and that finally broke the seizure while in icu. He still had stidor, was post icteral and failing around, severe increase in accessory muscles. Anesthesiology came and intubated with glidescope. Hospitalist Physical - Physical exam Narrative exam: GEN: chronic debiliated, NAD, Awake, Alert, Orientated HEENT: not normal cephalic with craniotomy scar/skull on the left, disjoined extramolar on the left, wondering left eye, OP Clear NECK: supple, no adenopathy, no thyromegaly, no JVD CVS/HEART: Regular tachycardia, normal S1S2, pulses present bilaterally CHEST/LUNGS:diminished, upper airway stidor, Symmetrical chest expansion, good air entry bilaterally GI/Abdomen: soft, NTND, good bowel sounds, no guarding or rebound /Bladder: no suprapubic tenderness, no CVA or paraspinal tenderness EXT/Skin: no c/c/e, + obvious red rash left knuckle/hand and petechiae down the right leg to foot, mmm dry MSK: right hemiparesis Neuro: CN 2-12 grossly intact, no new focal deficits Psych: calm - Constitutional Vitals: Temp Pulse Resp BP Pulse Ox 100.3 F H 88 16 149/81 89 12/02/18 12:07 12/02/18 12:20 12/02/18 12:20 12/02/18 12:07 12/02/18 12:07 Results - Labs CBC & Chem 7: 12/02/18 Unknown 12/02/18 14:08 Labs: Laboratory Last Values WBC 11.0 K/mm3 (4.5-11.0) 12/02/18 Unknown RBC 4.98 M/mm3 (3.65-5.03) 12/02/18 Unknown Hgb 15.5 gm/dl (11.8-15.2) H 12/02/18 Unknown Hct 44.8 % (35.5-45.6) 12/02/18 Unknown MCV 90 fl (84-94) 12/02/18 Unknown MCH 31 pg (28-32) 12/02/18 Unknown MCHC 35 % (32-34) H 12/02/18 Unknown RDW 14.0 % (13.2-15.2) 12/02/18 Unknown Plt Count 218 K/mm3 (140-440) 12/02/18 Unknown Lymph % (Auto) 32.4 % (13.4-35.0) 11/30/18 23:41 [place] % (Auto) 9.5 % (0.0-7.3) H 11/30/18 23:41 Eos % (Auto) 4.9 % (0.0-4.3) H 11/30/18 23:41 Baso % (Auto) 0.9 % (0.0-1.8) 11/30/18 23:41 Lymph # 2.7 K/mm3 (1.2-5.4) 11/30/18 23:41 [place] # 0.8 K/mm3 (0.0-0.8) 11/30/18 23:41 Eos # 0.4 K/mm3 (0.0-0.4) 11/30/18 23:41 Baso # 0.1 K/mm3 (0.0-0.1) 11/30/18 23:41 Seg Neutrophils % 52.3 % (40.0-70.0) 11/30/18 23:41 Seg Neutrophils # 4.4 K/mm3 (1.8-7.7) 11/30/18 23:41 POC ABG pH 7.229 (7.35-7.45) L 12/02/18 12:24 POC ABG pCO2 59.9 (35-45) H 12/02/18 12:24 POC ABG pO2 76 (80-105) L 12/02/18 12:24 POC ABG HCO3 25.0 12/02/18 12:24 POC ABG Total CO2 27 12/02/18 12:24 POC ABG O2 Sat 92 12/02/18 12:24 POC ABG Base Excess -3 12/02/18 12:24 FiO2 44 % 12/02/18 12:24 Sodium 143 mmol/L (137-145) 12/02/18 14:08 Potassium 3.6 mmol/L (3.6-5.0) 12/02/18 14:08 Chloride 102.3 mmol/L (98-107) 12/02/18 14:08 Carbon Dioxide 23 mmol/L (22-30) 12/02/18 14:08 Anion Gap 21 mmol/L 12/02/18 14:08 BUN 10 mg/dL (9-20) 12/02/18 14:08 Creatinine 0.8 mg/dL (0.8-1.5) 12/02/18 14:08 Estimated GFR > 60 ml/min 12/02/18 14:08 BUN/Creatinine Ratio 13 % 12/02/18 14:08 Glucose 86 mg/dL (75-100) 12/02/18 14:08 Calcium 8.0 mg/dL (8.4-10.2) L 12/02/18 14:08 Magnesium 1.60 mg/dL (1.7-2.3) L 12/02/18 14:08 Total Bilirubin 0.30 mg/dL (0.1-1.2) 11/30/18 23:41 AST 24 units/L (5-40) 11/30/18 23:41 ALT 12 units/L (7-56) 11/30/18 23:41 Alkaline Phosphatase 100 units/L (35-129) 11/30/18 23:41 Ammonia 44.0 umol/L (25-60) 11/30/18 23:41 Total Creatine Kinase 427 units/L (55-170) H 11/30/18 23:41 Troponin T < 0.010 ng/mL (0.00-0.029) 11/30/18 23:41 Total Protein 6.5 g/dL (6.3-8.2) 11/30/18 23:41 Albumin 4.0 g/dL (3.9-5) 11/30/18 23:41 Albumin/Globulin Ratio 1.6 % 11/30/18 23:41 Urine Color Yellow (Yellow) 11/30/18 04:20 Urine Turbidity Clear (Clear) 11/30/18 04:20 Urine pH 5.0 (5.0-7.0) 11/30/18 04:20 Ur Specific [place] 1.016 (1.003-1.030) 11/30/18 04:20 Urine Protein <15 mg/dl mg/dL (Negative) 11/30/18 04:20 Urine Glucose (UA) Neg mg/dL (Negative) 11/30/18 04:20 Urine Ketones Neg mg/dL (Negative) 11/30/18 04:20 Urine Blood Neg (Negative) 11/30/18 04:20 Urine Nitrite Neg (Negative) 11/30/18 04:20 Urine Bilirubin Neg (Negative) 11/30/18 04:20 Urine Urobilinogen < 2.0 mg/dL (<2.0) 11/30/18 04:20 Ur Leukocyte Esterase Neg (Negative) 11/30/18 04:20 Urine WBC (Auto) < 1.0 /HPF (0.0-6.0) 11/30/18 04:20 Urine RBC (Auto) 2.0 /HPF (0.0-6.0) 11/30/18 04:20 U Epithel Cells (Auto) 1.0 /HPF (0-13.0) 11/30/18 04:20 Nutrition/Malnutrition Assess - Dietary Evaluation Nutrition/Malnutrition Findings: Nutrition Notes Start: 12/01/18 16:31 Freq: Status: Active Protocol: Document 12/01/18 16:32 RM (Rec: 12/01/18 16:35 RM [id number]) Nutrition Notes Need for Assessment generated from: informatics application analyst Initial or Follow up Brief Note Current Diagnosis COPD,Diabetes,Hypertension Other Pertinent Diagnosis TBI, Hx CVA, Seizure Current Diet [facility] Soft Labs/Tests Reviewed Pertinent Medications Reviewed Height 5 ft 7 in Weight 80 kg [place] Body Weight (kg) 67.27 BMI 27.6 Subjective/Other Information Screened for difficulty chewing. No diet in place earlier today . [facility] soft diet ordered later today. Pt from assisted living home and asleep at time of visit. Burn Absent Trauma Absent Nutrition Intervention Follow-Up By: 12/03/18 Additional Comments Follow for PO intakes, need for ONS
[2018-12-02] MEDS ORDERED: MIDAZOLAM 100 MG in NACL 0.9% 80 ML IV SCH (16:00)
--- NOTE | 2018-12-02 16:23 | XRay Report ---
PROCEDURE: XR CHEST 1V AP TECHNIQUE: Single AP chest HISTORY: ETT placement COMPARISONS: Prior studies are not available for comparison at this time FINDINGS: There is an ET tube present. Tip is in satisfactory position 3.6 cm above the allie. Positioning is rotated. There is focal atelectasis/infiltrate within the left lower lobe distribution. No additional acute pulmonary findings. Pulmonary vasculature is unremarkable. No pleural effusion identified. IMPRESSION: ET tube in satisfactory position Left lower lobe infiltrate/atelectasis. This document is electronically signed by Robe Mayer MD., December 02 2018 04:20:00 PM ET
[2018-12-02] MEDS: LEVAQUIN 750MG/150ML 750 MG/150 ML BAG IV SCH (17:18)
[2018-12-02] MEDS: VIMPAT 100 MG in NACL 0.9% 100 ML IV SCH (19:03)
[2018-12-02] MEDS: KEPPRA 1,000 MG/NS 0.75% 100ML 1,000 MG/100 ML BAG IV SCH (19:03)
[2018-12-02] MEDS ORDERED: NACL 0.9% 250ML 250 ML IV ONE (21:50)
[2018-12-02] MEDS ORDERED: AMIDATE IV ONE ×2 (22:51→22:52)
[2018-12-02] MEDS ORDERED: QUELICIN ONE ×2 (22:51→22:52)
[2018-12-02] MEDS: CEREBYX IV SCH (22:58)
[2018-12-02] MEDS: NACL IV SCH (22:58)
[2018-12-02] MEDS: [UNRECOGNIZED DRUG - OTHER] IV SCH (22:58)
[2018-12-02] MEDS ORDERED: NACL 0.9% 500 ML 500 ML IV ONE (23:14)
[2018-12-02] MEDS ORDERED: NACL 0.9% 1000 ML 1,000 ML IV SCH (23:45)
[2018-12-03] MEDS ORDERED: NACL 0.9% 500 ML 500 ML IV ONE (01:11)
--- NOTE | 2018-12-03 02:59 | XRay Report ---
PROCEDURE: PORTABLE CHEST TECHNIQUE: A portable AP chest radiograph was obtained at 12/03/2018 7:32 BRAZE OPERATOR. CPT 89428 HISTORY: Frontal view COMPARISONS: 12/02/2018. FINDINGS: Heart: Heart is enlarged.. Mediastinum/Vessels: Normal. Lungs/Pleural space: The left hemidiaphragm is elevated. There are air-filled distended loops of bow el under the left hemidiaphragm. There is atelectasis at the left lung base. There are no acute infil trates. There is no pleural effusion or pneumothorax.. Bony thorax: No acute osseous abnormality. Life support devices: Endotracheal tube is in the distal trachea approximately 2 cm above the allie. . IMPRESSION: Heart is enlarged.. The left hemidiaphragm is elevated. There are air-filled distended loops of bowel under the left daniel diaphragm. There is atelectasis at the left lung base. There are no acute infiltrates. There is no pl eural effusion or pneumothorax.. Endotracheal tube is in the distal trachea approximately 2 cm above the allei... This document is electronically signed by Sandro Kilgore MD., December 03 2018 02:57:46 AM ET
[2018-12-03] MEDS: VIMPAT 100 MG in NACL 0.9% 100 ML IV SCH ×2 (05:31→17:38)
[2018-12-03] MEDS: [UNRECOGNIZED DRUG - OTHER] IV SCH ×3 (05:31→22:03)
[2018-12-03] MEDS: CEREBYX IV SCH ×3 (05:31→22:03)
[2018-12-03] MEDS: NACL IV SCH ×3 (05:31→22:03)
[2018-12-03] MEDS: KEPPRA 1,000 MG/NS 0.75% 100ML 1,000 MG/100 ML BAG IV SCH (05:31)
[2018-12-03 07:33] LABS: Hematocrit 40.4 % (35.5-45.6); Hemoglobin 13.8 gm/dl (11.8-15.2); Mean Corpuscular HGB Conc 34 % (32-34); Mean Corpuscular Volume 89 fl (84-94); Platelet Count 192 K/mm3 (140-440); Red Blood Count 4.53 M/mm3 (3.65-5.03); Red Cell Distribution Width 14.1 % (13.2-15.2)
[2018-12-03 07:59] LABS: BUN/Creatinine Ratio 17; Blood Urea Nitrogen 15 mg/dL (9-20); Calcium 7.7 mg/dL (8.4-10.2); Hemolysis Index 7
[2018-12-03] MEDS: DUONEB *Not for PRN Use IH SCH ×3 (08:00→19:12)
--- NOTE | 2018-12-03 08:13 | Consultation ---
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 Patient is unable to provide a history, currently intubated. Lives in an assisted living facility. [employer] Worker reported that he was not at his baseline mental status and that he is usually verbal. In the ED, temp 98.5, HR 107, R 19, BP 129/79. WBC 8.4, Hg 14.9, Plat 218. Creat 0.9. . LFTs normal. CK 427. Blood culture 12/02/2018 no growth today. Sputum 12/02/[address] head showed single large left frontal and temporal craniotomy defect, asymmetry of the lateral ventricles with ex vacuo dilatation of the left lateral ventricle, extensive encephalomalacia in the left hemisphere consistent with old surgery or injury. CXR showed left lower lobe infiltrate/atelectasis. Review of Systems: Unable to obtain Medications and Allergies Allergies Allergy/AdvReac Type Severity Reaction Status Date / Time Penicillins Allergy Unknown Verified 03/06/18 22:49 chocolate flavor AdvReac Rash Verified 03/06/18 22:49 peanut AdvReac Rash Verified 03/06/18 22:49 Home Medications Medication Instructions Recorded Confirmed Last Taken Type Docusate Sodium [Colace CAP] 100 mg PO BID PRN #60 capsule 10/12/17 12/01/18 Unknown Rx Famotidine [Pepcid] 20 mg PO BID #30 tablet 10/12/17 12/01/18 03/06/18 Rx Polyethylene Glycol 3350 [Miralax 17 gm PO QDAY #60 packet 10/12/17 12/01/18 03/06/18 Rx 3350] hydrALAZINE [Apresoline TAB] 100 mg PO Q4HR PRN #60 tab 10/12/17 12/01/18 Unknown Rx Acetaminophen [Acetaminophen 8 650 mg PO Q6H PRN 10/18/17 12/01/18 Unknown Hi story Hour] Transderm-Scop 1.5 mg TD Q3D PRN 03/07/18 12/01/18 Unknown History Baclofen [Lioresal] 10 mg PO TID #90 tablet 03/11/18 12/01/18 Unknown Rx levETIRAcetam [Keppra TAB] 2,000 mg PO QHS 30 Days tablet 03/11/18 12/01/18 Unknown Rx Lacosamide [Vimpat] 50 mg PO QAM 12/01/18 12/01/18 Unknown History levETIRAcetam [Keppra] 2,000 mg PO QAM 12/01/18 12/01/18 Unknown History Active Meds: Active Medications Albuterol/Ipratropium (Duoneb *Not For Prn Use*) 1 ampul IH TIDRT [facility] Last Admin: 12/03/18 08:00 Dose: 1 ampul Documented by: Heparin Sodium (Porcine) (Heparin) 5,000 unit SUB-Q Q12HR [facility] Hydrocortisone Sodium Succinate (Solu-Cortef) 100 mg IV Q8H [facility] Last Admin: 12/02/18 23:02 Dose: 100 mg Documented by: Hydrophilic Ointment (Vaseline Lip Therapy) 1 applic TP Q2HR PRN PRN Reason: Dry Lips Fosphenytoin Sodium 100 mg.pe/ (Sodium Chloride) 52 mls @ 200 mls/hr IV Q8HR [facility] Last Admin: 12/03/18 05:31 Dose: 200 mls/hr Documented by: Midazolam HCl 100 mg/ Sodium (Chloride) 100 mls @ 2 mls/hr IV TITR [facility]; Protocol Last Titration: 12/02/18 21:44 Dose: 0 mg/hr, 0 mls/hr Documented by: Lacosamide 100 mg/ Sodium (Chloride) 110 mls @ 100 mls/hr IV Q12H [facility] Last Admin: 12/03/18 05:31 Dose: 100 mls/hr Documented by: Levetiracetam (Keppra 1,000 Mg/Ns 0.75% 100ml) 1,000 mg in 100 mls @ 200 mls/hr IV Q12H [facility] Last Admin: 12/03/18 05:31 Dose: 200 mls/hr Documented by: Levofloxacin/Dextrose (Levaquin 750mg/150ml) 750 mg in 150 mls @ 100 mls/hr IV Q24HR [facility]; Protocol Last Admin: 12/02/18 17:18 Dose: 100 mls/hr Documented by: Sodium Chloride (Nacl 0.9% 1000 Ml) 1,000 mls @ 75 mls/hr IV DIRECT [facility] Last Admin: 12/02/18 23:38 Dose: 75 mls/hr Documented by: Lorazepam (Ativan) 1 mg IV Q2H PRN PRN Reason: Seizures Last Admin: 12/02/18 13:21 Dose: 1 mg Documented by: Multi-Ingred Cream/Lotion/Oil/Oint (Artificial Tears Ophth Oint) 1 applic OU Q4HR PRN PRN Reason: Dry Eye(s) Pantoprazole Sodium (Protonix) 40 mg IV QDAY [facility] Scopolamine (Transderm-Scop) 1 each TD Q3D PRN PRN Reason: Nausea Physical Examination - Physical Exam Narrative exam: General appearance: lethargic, intubated, FiO2 50%, p6 Eyes: anicteric sclerae, moist conjunctivae; no lid-lag; PERRLA HENT: +old craneotomy; oropharynx +ETT Neck: Trachea midline; supple, no thyromegaly or lymphadenopathy Lungs: rozina coarse BS CV: RRR Abdomen: Soft, non-tender; no masses or hepatosplenomegaly Extremities: No peripheral edema or extremity lymphadenopathy Skin: Normal temperature, turgor and texture; no rash, ulcers or subcutaneous nodules Psych: lethargic. Neuro: lethargic. - Constitutional Vitals: Vital Signs Temp Pulse Resp BP Pulse Ox 98.8 F 90 19 98/59 99 12/03/18 04:00 12/03/18 05:35 12/03/18 05:35 12/03/18 05:00 12/03/18 05:35 Temperature -Last 24 Hours Temperature 98.8 F Temperature 97.7 F Temperature 98.8 F Temperature 97 F Temperature 100.3 F Temperature 98.7 F Results - Labs CBC & Chem 7: 12/03/18 07:15 12/03/18 07:15 Labs: Abnormal lab results 12/02/18 12/02/18 12/02/18 Range/Units 12:24 14:08 14:08 WBC (4.5-11.0) K/mm3 Hgb (11.8-15.2) gm/dl MCHC (32-34) % POC ABG pH 7.229 L (7.35-7.45) POC ABG pCO2 59.9 H (35-45) POC ABG pO2 76 L (80-105) Glucose (75-100) mg/dL Calcium 8.0 L (8.4-10.2) mg/dL Magnesium 1.60 L (1.7-2.3) mg/dL 12/02/18 12/02/18 12/03/18 Range/Units 19:18 Unknown 07:15 WBC 19.7 H (4.5-11.0) K/mm3 Hgb 15.5 H (11.8-15.2) gm/dl MCHC 35 H (32-34) % POC ABG pH 7.349 L (7.35-7.45) POC ABG pCO2 (35-45) POC ABG pO2 232 H (80-105) Glucose (75-100) mg/dL Calcium (8.4-10.2) mg/dL Magnesium (1.7-2.3) mg/dL 12/03/18 12/03/18 Range/Units 07:15 08:09 WBC (4.5-11.0) K/mm3 Hgb (11.8-15.2) gm/dl MCHC (32-34) % POC ABG pH (7.35-7.45) POC ABG pCO2 (35-45) POC ABG pO2 136 H (80-105) Glucose 139 H (75-100) mg/dL Calcium 7.7 L (8.4-10.2) mg/dL Magnesium 1.60 L (1.7-2.3) mg/dL Assessment and Plan Cultures: Blood culture 12/02/2018 no growth today. Sputum 12/02/2018 normal respiratory prema. 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 Etiology most likely HCAP v/s aspiration. Blood culture 12/02/2018 no growth today. UA neg. 2) Presumed HCAP v/s aspiration: CXR showed left lower lobe infiltrate/atelectasis. Sputum 12/02/2018 normal respiratory prema. DDx anaerobes, MRSA, GNRs 3) Acute encephalopathy: from seizures. CT head showed single large left frontal and temporal craniotomy defect, asymmetry of the lateral ventricles with ex vacuo dilatation of the left lateral ventricle, extensive encephalomalacia in the left hemisphere consistent with old surgery or injury. 4) Acute respiratory failure 5) Status epilecticus Recommendations: - follow-up blood cultures, sputum culture - continue levaquin - add flagyl and vancomycin - check MRSA screening Dr Yap will be ropunding tomorrow Bee Fitch MD Infectious Diseases [facility] M [phone] O [phone]
--- NOTE | 2018-12-03 08:25 | Progress Note ---
Subjective Date of service: 12/03/18 Interval history: see notes from the rapid response yesterday... intubated I have ordered another EEG rec dilantin level Objective - Vital Sign Vital Signs - 12hr 12/02/18 12/02/18 12/02/18 20:30 21:00 21:30 Temperature Pulse Rate 82 82 77 Respiratory 18 19 21 Rate Blood Pressure 97/62 97/62 78/46 O2 Sat by Pulse 99 99 99 Oximetry 12/02/18 12/02/18 12/02/18 22:00 22:30 23:00 Temperature Pulse Rate 73 72 71 Respiratory 20 23 23 Rate Blood Pressure 86/50 78/44 86/49 O2 Sat by Pulse 100 100 100 Oximetry 12/02/18 12/02/18 12/03/18 23:30 23:50 00:00 Temperature 97.7 F Pulse Rate 73 70 Respiratory 21 22 Rate Blood Pressure 81/48 82/47 O2 Sat by Pulse 100 100 Oximetry 12/03/18 12/03/18 12/03/18 00:05 00:30 01:00 Temperature Pulse Rate 70 70 68 Respiratory 21 23 22 Rate Blood Pressure 82/47 84/51 85/48 O2 Sat by Pulse 100 100 100 Oximetry 12/03/18 12/03/18 12/03/18 01:18 01:30 02:00 Temperature Pulse Rate 69 66 82 Respiratory 21 19 Rate Blood Pressure 87/49 92/46 98/54 O2 Sat by Pulse 100 100 100 Oximetry 12/03/18 12/03/18 12/03/18 02:30 03:00 03:30 Temperature Pulse Rate 73 79 81 Respiratory 20 24 22 Rate Blood Pressure 106/64 106/59 98/61 O2 Sat by Pulse 99 99 99 Oximetry 12/03/18 12/03/18 12/03/18 04:00 04:30 04:35 Temperature 98.8 F Pulse Rate 79 82 84 Respiratory 20 24 Rate Blood Pressure 102/60 108/51 108/51 O2 Sat by Pulse 99 99 99 Oximetry 12/03/18 12/03/18 05:00 05:35 Temperature Pulse Rate 95 H 90 Respiratory 26 H 19 Rate Blood Pressure 98/59 O2 Sat by Pulse 99 Oximetry - Laboratory Findings CBC and BMP: 12/03/18 07:15 12/03/18 07:15 Abnormal Lab Findings: Abnormal Labs 11/30/18 11/30/18 12/02/18 23:41 23:41 06:57 WBC Hgb MCHC 36 H [place] % (Auto) 9.5 H Eos % (Auto) 4.9 H POC ABG pH POC ABG pCO2 POC ABG pO2 BUN 8 L Creatinine 0.7 L Glucose Calcium 7.8 L Magnesium Total Creatine Kinase 427 H 12/02/18 12/02/18 12/02/18 12:24 14:08 14:08 WBC Hgb MCHC [place] % (Auto) Eos % (Auto) POC ABG pH 7.229 L POC ABG pCO2 59.9 H POC ABG pO2 76 L BUN Creatinine Glucose Calcium 8.0 L Magnesium 1.60 L Total Creatine Kinase 12/02/18 12/02/18 12/03/18 19:18 Unknown 07:15 WBC 19.7 H Hgb 15.5 H MCHC 35 H [place] % (Auto) Eos % (Auto) POC ABG pH 7.349 L POC ABG pCO2 POC ABG pO2 232 H BUN Creatinine Glucose Calcium Magnesium Total Creatine Kinase 12/03/18 12/03/18 07:15 08:09 WBC Hgb MCHC [place] % (Auto) Eos % (Auto) POC ABG pH POC ABG pCO2 POC ABG pO2 136 H BUN Creatinine Glucose 139 H Calcium 7.7 L Magnesium 1.60 L Total Creatine Kinase
[2018-12-03] MEDS: LEVAQUIN 750MG/150ML 750 MG/150 ML BAG IV SCH (09:14)
[2018-12-03] MEDS: PROTONIX IV SCH (09:14)
--- NOTE | 2018-12-03 09:20 | History and Physical Report ---
History of Present Illness Date of examination: 12/03/18 Date of admission: 12/01/18 02:22 Medications and Allergies Allergies Allergy/AdvReac Type Severity Reaction Status Date / Time Penicillins Allergy Unknown Verified 03/06/18 22:49 chocolate flavor AdvReac Rash Verified 03/06/18 22:49 peanut AdvReac Rash Verified 03/06/18 22:49 Home Medications Medication Instructions Recorded Confirmed Last Taken Type Docusate Sodium [Colace CAP] 100 mg PO BID PRN #60 capsule 10/12/17 12/01/18 Unknown Rx Famotidine [Pepcid] 20 mg PO BID #30 tablet 10/12/17 12/01/18 03/06/18 Rx Polyethylene Glycol 3350 [Miralax 17 gm PO QDAY #60 packet 10/12/17 12/01/18 03/06/18 Rx 3350] hydrALAZINE [Apresoline TAB] 100 mg PO Q4HR PRN #60 tab 10/12/17 12/01/18 Unknown Rx Acetaminophen [Acetaminophen 8 650 mg PO Q6H PRN 10/18/17 12/01/18 Unknown History Hour] Transderm-Scop 1.5 mg TD Q3D PRN 03/07/18 12/01/18 Unknown History Baclofen [Lioresal] 10 mg PO TID #90 tablet 03/11/18 12/01/18 Unknown Rx levETIRAcetam [Keppra TAB] 2,000 mg PO QHS 30 Days tablet 03/11/18 12/01/18 Unknown Rx Lacosamide [Vimpat] 50 mg PO QAM 12/01/18 12/01/18 Unknown History levETIRAcetam [Keppra] 2,000 mg PO QAM 12/01/18 12/01/18 Unknown History Active Meds: Active Medications Albuterol/Ipratropium (Duoneb *Not For Prn Use*) 1 ampul IH TIDRT [facility] Last Admin: 12/03/18 08:00 Dose: 1 ampul Documented by: Heparin Sodium (Porcine) (Heparin) 5,000 unit SUB-Q Q12HR [facility] Hydrocortisone Sodium Succinate (Solu-Cortef) 100 mg IV Q8H [facility] Last Admin: 12/03/18 09:14 Dose: 100 mg Documented by: Hydrophilic Ointment (Vaseline Lip Therapy) 1 applic TP Q2HR PRN PRN Reason: Dry Lips Fosphenytoin Sodium 100 mg.pe/ (Sodium Chloride) 52 mls @ 200 mls/hr IV Q8HR [facility] Last Admin: 12/03/18 05:31 Dose: 200 mls/hr Documented by: Midazolam HCl 100 mg/ Sodium (Chloride) 100 mls @ 2 mls/hr IV TITR [facility]; P rotocol Last Titration: 12/02/18 21:44 Dose: 0 mg/hr, 0 mls/hr Documented by: Lacosamide 100 mg/ Sodium (Chloride) 110 mls @ 100 mls/hr IV Q12H [facility] Last Admin: 12/03/18 05:31 Dose: 100 mls/hr Documented by: Levetiracetam (Keppra 1,000 Mg/Ns 0.75% 100ml) 1,000 mg in 100 mls @ 200 mls/hr IV Q12H [facility] Last Admin: 12/03/18 05:31 Dose: 200 mls/hr Documented by: Levofloxacin/Dextrose (Levaquin 750mg/150ml) 750 mg in 150 mls @ 100 mls/hr IV Q24HR [facility]; Protocol Last Admin: 12/03/18 09:14 Dose: 100 mls/hr Documented by: Sodium Chloride (Nacl 0.9% 1000 Ml) 1,000 mls @ 75 mls/hr IV DIRECT [facility] Last Admin: 12/02/18 23:38 Dose: 75 mls/hr Documented by: Lorazepam (Ativan) 1 mg IV Q2H PRN PRN Reason: Seizures Last Admin: 12/02/18 13:21 Dose: 1 mg Documented by: Multi-Ingred Cream/Lotion/Oil/Oint (Artificial Tears Ophth Oint) 1 applic OU Q4HR PRN PRN Reason: Dry Eye(s) Pantoprazole Sodium (Protonix) 40 mg IV QDAY [facility] Last Admin: 12/03/18 09:14 Dose: 40 mg Documented by: Scopolamine (Transderm-Scop) 1 each TD Q3D PRN PRN Reason: Nausea Exam - Constitutional Vitals: Temp Pulse Resp BP Pulse Ox 98.8 F 92 H 24 108/56 99 12/03/18 04:00 12/03/18 08:09 12/03/18 08:09 12/03/18 08:09 12/03/18 08:09 Results - Labs CBC & Chem 7: 12/03/18 07:15 12/03/18 07:15 Labs: Laboratory Last Values WBC 19.7 K/mm3 (4.5-11.0) H 12/03/18 07:15 RBC 4.53 M/mm3 (3.65-5.03) 12/03/18 07:15 Hgb 13.8 gm/dl (11.8-15.2) 12/03/18 07:15 Hct 40.4 % (35.5-45.6) 12/03/18 07:15 MCV 89 fl (84-94) 12/03/18 07:15 MCH 31 pg (28-32) 12/03/18 07:15 MCHC 34 % (32-34) 12/03/18 07:15 RDW 14.1 % (13.2-15.2) 12/03/18 07:15 Plt Count 192 K/mm3 (140-440) 12/03/18 07:15 Lymph % (Auto) 32.4 % (13.4-35.0) 11/30/18 23:41 [place] % (Auto) 9.5 % (0.0-7.3) H 11/30/18 23:41 Eos % (Auto) 4.9 % (0.0-4.3) H 11/30/18 23:41 Baso % (Auto) 0.9 % (0.0-1.8) 11/30/18 23:41 Lymph # 2.7 K/mm3 (1.2-5.4) 11/30/18 23:41 [place] # 0.8 K/mm3 (0.0-0.8) 11/30/18 23:41 Eos # 0.4 K/mm3 (0.0-0.4) 11/30/18 23:41 Baso # 0.1 K/mm3 (0.0-0.1) 11/30/18 23:41 Seg Neutrophils % 52.3 % (40.0-70.0) 11/30/18 23:41 Seg Neutrophils # 4.4 K/mm3 (1.8-7.7) 11/30/18 23:41 POC ABG pH 7.354 (7.35-7.45) 12/03/18 08:09 POC ABG pCO2 40.5 (35-45) 12/03/18 08:09 POC ABG pO2 136 (80-105) H 12/03/18 08:09 POC ABG HCO3 22.6 12/03/18 08:09 POC ABG Total CO2 24 12/03/18 08:09 POC ABG O2 Sat 99 12/03/18 08:09 POC ABG Base Excess -3 12/03/18 08:09 FiO2 50 % 12/03/18 08:09 Sodium 140 mmol/L (137-145) 12/03/18 07:15 Potassium 3.8 mmol/L (3.6-5.0) 12/03/18 07:15 Chloride 104.0 mmol/L (98-107) 12/03/18 07:15 Carbon Dioxide 23 mmol/L (22-30) 12/03/18 07:15 Anion Gap 17 mmol/L 12/03/18 07:15 BUN 15 mg/dL (9-20) 12/03/18 07:15 Creatinine 0.9 mg/dL (0.8-1.5) 12/03/18 07:15 Estimated GFR > 60 ml/min 12/03/18 07:15 BUN/Creatinine Ratio 17 % 12/03/18 07:15 Glucose 139 mg/dL (75-100) H 12/03/18 07:15 Calcium 7.7 mg/dL (8.4-10.2) L 12/03/18 07:15 Magnesium 1.60 mg/dL (1.7-2.3) L 12/03/18 07:15 Total Bilirubin 0.30 mg/dL (0.1-1.2) 11/30/18 23:41 AST 24 units/L (5-40) 11/30/18 23:41 ALT 12 units/L (7-56) 11/30/18 23:41 Alkaline Phosphatase 100 units/L (35-129) 11/30/18 23:41 Ammonia 44.0 umol/L (25-60) 11/30/18 23:41 Total Creatine Kinase 427 units/L (55-170) H 11/30/18 23:41 Troponin T < 0.010 ng/mL (0.00-0.029) 11/30/18 23:41 Total Protein 6.5 g/dL (6.3-8.2) 11/30/18 23:41 Albumin 4.0 g/dL (3.9-5) 11/30/18 23:41 Albumin/Globulin Ratio 1.6 % 11/30/18 23:41 Urine Color Yellow (Yellow) 11/30/18 04:20 Urine Turbidity Clear (Clear) 11/30/18 04:20 Urine pH 5.0 (5.0-7.0) 11/30/18 04:20 Ur Specific [place] 1.016 (1.003-1.030) 11/30/18 04:20 Urine Protein <15 mg/dl mg/dL (Negative) 11/30/18 04:20 Urine Glucose (UA) Neg mg/dL (Negative) 11/30/18 04:20 Urine Ketones Neg mg/dL (Negative) 11/30/18 04:20 Urine Blood Neg (Negative) 11/30/18 04:20 Urine Nitrite Neg (Negative) 11/30/18 04:20 Urine Bilirubin Neg (Negative) 11/30/18 04:20 Urine Urobilinogen < 2.0 mg/dL (<2.0) 11/30/18 04:20 Ur Leukocyte Esterase Neg (Negative) 11/30/18 04:20 Urine WBC (Auto) < 1.0 /HPF (0.0-6.0) 11/30/18 04:20 Urine RBC (Auto) 2.0 /HPF (0.0-6.0) 11/30/18 04:20 U Epithel Cells (Auto) 1.0 /HPF (0-13.0) 11/30/18 04:20 Assessment and Plan Assessment and plan: Assesmemt/plan Acute respiratory failure s/p ETT intubation for airway protection: consulted [facility] Acute encephalopathy from seizures, poa: control the seizures, use iv Versed dri p Acidosis on ABG; consulted Pulmonology Status epilepticus: continue keppra, use iv ativan prn for breakthrough sz, consulted Neurology==iv load with fosphenytoin and ordered maintenance dosing Hypotension: closely monitor TBI: Aspiration precautions Low grade temp: cxr yesterday unremarkable, get bctx, empiric treat with abx, use levaquin due to pcn allergy Chronic steroid use: started iv solu cortef while npo DVT prophylaxis Advance directives discussed with poa Kanwal Usman and our ex manager of international, Ame Cooney Advance Directives: Yes (Full code)
[2018-12-03] MEDS ORDERED: MAGNESIUM SULFATE 2GM/50ML 2 GM/50 ML BAG IV ONE (11:00)
--- NOTE | 2018-12-03 12:30 | Consultation ---
History of Present Illness Consult date: 12/03/18 Requesting physician: MARYA YE Reason for consult: other (Status Epilepticus; Acute Respiratory Failure) History of present illness: PULMONARY/CCM CONSULT NOTE (Full dictation # [id number]) Please see dictated notes for full details Medications and Allergies Allergies Allergy/AdvReac Type Severity Reaction Status Date / Time Penicillins Allergy Unknown Verified 03/06/18 22:49 chocolate flavor AdvReac Rash Verified 03/06/18 22:49 peanut AdvReac Rash Verified 03/06/18 22:49 Home Medications Medication Instructions Recorded Confirmed Last Taken Type Docusate Sodium [Colace CAP] 100 mg PO BID PRN #60 capsule 10/12/17 12/01/18 Unknown Rx Famotidine [Pepcid] 20 mg PO BID #30 tablet 10/12/17 12/01/18 03/06/18 Rx Polyethylene Glycol 3350 [Miralax 17 gm PO QDAY #60 packet 10/12/17 12/01/18 0 03/06/18 Rx 3350] hydrALAZINE [Apresoline TAB] 100 mg PO Q4HR PRN #60 tab 10/12/17 12/01/18 U nknown Rx Acetaminophen [Acetaminophen 8 650 mg PO Q6H PRN 10/18/17 12/01/18 Unknown History Hour] Transderm-Scop 1.5 mg TD Q3D PRN 03/07/18 12/01/18 Unknown History Baclofen [Lioresal] 10 mg PO TID #90 tablet 03/11/18 12/01/18 Unknown Rx levETIRAcetam [Keppra TAB] 2,000 mg PO QHS 30 Days tablet 03/11/18 12/01/18 Unknown Rx Lacosamide [Vimpat] 50 mg PO QAM 12/01/18 12/01/18 Unknown History levETIRAcetam [Keppra] 2,000 mg PO QAM 12/01/18 12/01/18 Unknown History Active Meds: Active Medications Albuterol/Ipratropium (Duoneb *Not For Prn Use*) 1 ampul IH TIDRT [facility] Last Admin: 12/03/18 08:00 Dose: 1 ampul Documented by: Heparin Sodium (Porcine) (Heparin) 5,000 unit SUB-Q Q12HR [facility] Hydrocortisone Sodium Succinate (Solu-Cortef) 50 mg IV Q8H [facility] Stop: 12/03/18 23:59 Hydrocortisone Sodium Succinate (Solu-Cortef) 50 mg IV BID [facility] Stop: 12/04/18 22:01 Hydrocortisone Sodium Succinate (Solu-Cortef) 50 mg IV DAILY [facility] Stop: 12/05/18 10:01 Hydrophilic Ointment (Vaseline Lip Therapy) 1 applic TP Q2HR PRN PRN Reason: Dry Lips Fosphenytoin Sodium 100 mg.pe/ (Sodium Chloride) 52 mls @ 200 mls/hr IV Q8HR [facility] Last Admin: 12/03/18 05:31 Dose: 200 mls/hr Documented by: Midazolam HCl 100 mg/ Sodium (Chloride) 100 mls @ 2 mls/hr IV TITR [facility]; Protocol Last Titration: 12/02/18 21:44 Dose: 0 mg/hr, 0 mls/hr Documented by: Lacosamide 100 mg/ Sodium (Chloride) 110 mls @ 100 mls/hr IV Q12H [facility] Last Admin: 12/03/18 05:31 Dose: 100 mls/hr Documented by: Levofloxacin/Dextrose (Levaquin 750mg/150ml) 750 mg in 150 mls @ 100 mls/hr IV Q24HR [facility]; Protocol Last Admin: 12/03/18 09:14 Dose: 100 mls/hr Documented by: Magnesium Sulfate (Magnesium Sulfate 2gm/50ml) 2 gm in 50 mls @ 25 mls/hr IV ONCE ONE Stop: 12/03/18 12:59 Last Admin: 12/03/18 10:56 Dose: 25 mls/hr Documented by: Levetiracetam 2,000 mg/ (Dextrose) 120 mls @ 400 mls/hr IV Q12HR [facility] Lorazepam (Ativan) 1 mg IV Q2H PRN PRN Reason: Seizures Last Admin: 12/02/18 13:21 Dose: 1 mg Documented by: Multi-Ingred Cream/Lotion/Oil/Oint (Artificial Tears Ophth Oint) 1 applic OU Q4HR PRN PRN Reason: Dry Eye(s) Pantoprazole Sodium (Protonix) 40 mg IV QDAY [facility] Last Admin: 12/03/18 09:14 Dose: 40 mg Documented by: Scopolamine (Transderm-Scop) 1 each TD Q3D PRN PRN Reason: Nausea Physical Examination Vital signs: Vital Signs BP 129/79 11/30/18 23:15 Results - Laboratory Findings CBC and BMP: 12/03/18 07:15 12/03/18 07:15 ABG POC ABG pH 7.387 (7.35-7.45) 12/03/18 11:29 POC ABG pCO2 39.4 (35-45) 12/03/18 11:29 POC ABG pO2 97 (80-105) 12/03/18 11:29 POC ABG HCO3 23.7 12/03/18 11:29 POC ABG Total CO2 25 12/03/18 11:29 POC ABG O2 Sat 97 12/03/18 11:29 Abnormal lab findings: Abnormal Labs 11/30/18 11/30/18 12/02/18 23:41 23:41 06:57 WBC Hgb MCHC 36 H [place] % (Auto) 9.5 H Eos % (Auto) 4.9 H POC ABG pH POC ABG pCO2 POC ABG pO2 BUN 8 L Creatinine 0.7 L Glucose Calcium 7.8 L Magnesium Total Creatine Kinase 427 H 12/02/18 12/02/18 12/02/18 12:24 14:08 14:08 WBC Hgb MCHC [place] % (Auto) Eos % (Auto) POC ABG pH 7.229 L POC ABG pCO2 59.9 H POC ABG pO2 76 L BUN Creatinine Glucose Calcium 8.0 L Magnesium 1.60 L Total Creatine Kinase 12/02/18 12/02/18 12/03/18 19:18 Unknown 07:15 WBC 19.7 H Hgb 15.5 H MCHC 35 H [place] % (Auto) Eos % (Auto) POC ABG pH 7.349 L POC ABG pCO2 POC ABG pO2 232 H BUN Creatinine Glucose Calcium Magnesium Total Creatine Kinase 12/03/18 12/03/18 07:15 08:09 WBC Hgb MCHC [place] % (Auto) Eos % (Auto) POC ABG pH POC ABG pCO2 POC ABG pO2 136 H BUN Creatinine Glucose 139 H Calcium 7.7 L Magnesium 1.60 L Total Creatine Kinase
[2018-12-03] MEDS: FLAGYL 500 MG/100 ML 500 MG/100 ML BAG IV SCH ×2 (16:11→21:59)
--- NOTE | 2018-12-03 16:41 | Progress Note ---
Subjective Date of service: 12/03/18 Interval history: seizures have stopped and patient is fully alert/ talking/ extubated plan continue same meds Objective - Vital Sign Vital Signs - 12hr 12/03/18 12/03/18 12/03/18 05:00 05:35 06:00 Temperature Pulse Rate 95 H 90 88 Pulse Rate [ Anterior Bilateral] Respiratory 26 H 19 20 Rate Respiratory Rate [Anterior Bilateral] Blood Pressure 98/59 102/53 O2 Sat by Pulse 99 98 Oximetry 12/03/18 12/03/18 12/03/18 06:30 07:00 07:30 Temperature Pulse Rate 90 87 92 H Pulse Rate [ Anterior Bilateral] Respiratory 23 22 24 Rate Respiratory Rate [Anterior Bilateral] Blood Pressure 99/50 93/53 108/56 O2 Sat by Pulse 98 95 99 Oximetry 12/03/18 12/03/18 12/03/18 08:00 08:09 08:30 Temperature 99.5 F Pulse Rate 90 92 H 91 H Pulse Rate [ 92 H Anterior Bilateral] Respiratory 19 25 H Rate Respiratory 24 Rate [Anterior Bilateral] Blood Pressure 108/56 108/56 106/52 O2 Sat by Pulse 100 99 98 Oximetry 12/03/18 12/03/18 12/03/18 09:00 09:30 10:00 Temperature Pulse Rate 88 91 H 90 Pulse Rate [ Anterior Bilateral] Respiratory 24 23 24 Rate Respiratory Rate [Anterior Bilateral] Blood Pressure 106/52 106/52 106/52 O2 Sat by Pulse 98 99 98 Oximetry 12/03/18 12/03/18 12/03/18 10:30 11:00 11:26 Temperature Pulse Rate 93 H 89 87 Pulse Rate [ Anterior Bilateral] Respiratory 25 H 25 H Rate Respiratory Rate [Anterior Bilateral] Blood Pressure 106/52 106/52 106/52 O2 Sat by Pulse 99 97 98 Oximetry 12/03/18 12/03/18 12/03/18 11:30 12:00 12:10 Temperature 100.6 F H Pulse Rate 85 89 Pulse Rate [ Anterior Bilateral] Respiratory 20 24 Rate Respiratory Rate [Anterior Bilateral] Blood Pressure 106/52 106/52 O2 Sat by Pulse 98 99 100 Oximetry 12/03/18 12/03/18 12/03/18 12:30 13:00 13:30 Temperature Pulse Rate 93 H 98 H 92 H Pulse Rate [ Anterior Bilateral] Respiratory 20 31 H 28 H Rate Respiratory Rate [Anterior Bilateral] Blood Pressure 106/52 106/52 106/52 O2 Sat by Pulse 99 97 98 Oximetry 12/03/18 12/03/18 14:00 14:20 Temperature Pulse Rate 90 Pulse Rate [ 86 100 H Anterior Bilateral] Respiratory 26 H Rate Respiratory 28 H 24 Rate [Anterior Bilateral] Blood Pressure 106/52 O2 Sat by Pulse 98 Oximetry - Laboratory Findings CBC and BMP: 12/03/18 07:15 12/03/18 07:15 Abnormal Lab Findings: Abnormal Labs 11/30/18 11/30/18 12/02/18 23:41 23:41 06:57 WBC Hgb MCHC 36 H [place] % (Auto) 9.5 H Eos % (Auto) 4.9 H POC ABG pH POC ABG pCO2 POC ABG pO2 BUN 8 L Creatinine 0.7 L Glucose Calcium 7.8 L Magnesium Total Creatine Kinase 427 H C-Reactive Protein 12/02/18 12/02/18 12/02/18 12:24 14:08 14:08 WBC Hgb MCHC [place] % (Auto) Eos % (Auto) POC ABG pH 7.229 L POC ABG pCO2 59.9 H POC ABG pO2 76 L BUN Creatinine Glucose Calcium 8.0 L Magnesium 1.60 L Total Creatine Kinase C-Reactive Protein 12/02/18 12/02/18 12/03/18 19:18 Unknown 07:15 WBC 19.7 H Hgb 15.5 H MCHC 35 H [place] % (Auto) Eos % (Auto) POC ABG pH 7.349 L POC ABG pCO2 POC ABG pO2 232 H BUN Creatinine Glucose Calcium Magnesium Total Creatine Kinase C-Reactive Protein 12/03/18 12/03/18 12/03/18 07:15 08:09 13:55 WBC Hgb MCHC [place] % (Auto) Eos % (Auto) POC ABG pH POC ABG pCO2 POC ABG pO2 136 H BUN Creatinine Glucose 139 H Calcium 7.7 L Magnesium 1.60 L Total Creatine Kinase C-Reactive Protein 14.50 H
[2018-12-03] MEDS: HEPARIN SUB-Q SCH (17:40)
[2018-12-03] MEDS: VANCOMYCIN/NS 1 GM/250 ML 1 GM/250 ML BAG IV SCH (18:18)
[2018-12-03] MEDS: KEPPRA IV SCH (21:59)
[2018-12-03] MEDS: D5W IV SCH (21:59)
--- NOTE | 2018-12-03 23:09 | Consultation ---
PULMONARY CRITICAL CARE CONSULTATION NOTE CONSULTING PHYSICIAN: Joaquim Wilder MD REASON FOR CONSULTATION: Acute respiratory failure, status epilepticus. 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 Since then, he has had a right hemiparesis as well as seizure disorder. His seizures have required high doses of medications for control. He came in to the Emergency Room after they noticed that his seizures were getting more frequent. They described them as localized seizures. He does have grand mal seizures occasionally, but he has been having more localized seizures. He was on 2 grams of Keppra b.i.d. amongst other medications which included Vimpat. He was evaluated in the Emergency Room for the breakthrough seizures. He had his medications adjusted. He was admitted to the medical floor. Late yesterday, the patient was found with altered mental status. He had been receiving also intermittent doses of Ativan to control his seizures. A code MET was called, rapid response was initiated. He was intubated at the bedside with rapid sequence intubation secondary to hypercapnic respiratory failure, mostly. Post-intubation, he was brought in to the Emergency Room where I stopped by to see him. When I stopped by to see him, he was on mechanical ventilator. He was responsive appropriately to my prompts. His caregiver was in the room and mentioned that was his best response, which was to raise his left hand and acknowledge. He denied any pain. I do not have any vomiting or overt aspiration reported. The patient is not a current tobacco smoker. Remote history is unknown. This really is as much of the history of presentation as I have. PAST MEDICAL HISTORY: Again, significant for traumatic brain injury, seizure disorder, hypertension, right hemiparesis, history of diabetes, history of asthma, history of COPD and subdural hematoma he had with a traumatic brain injury. PAST SURGICAL HISTORY: He has had a craniotomy. He has had a tracheostomy in the past. MEDICATIONS: He was on at the time I stopped by to see him were reviewed. Pertinent medications include the following: He was on albuterol and Atrovent treatments nebulized t.i.d. He was on Solu-Cortef 100 mg IV every 8 hours. He was on Vimpat 100 mg IV every 12 hours. He was on Keppra 1 gram IV q. 12 hours. He was on Levaquin 750 mg IV daily. He was getting Ativan 1 mg IV q. 12 hours p.r.n. seizures and he had been on Versed drip at 2 mg per hour. Scopolamine 1.5 mg patch to skin p.r.n. and Protonix 40 mg IV daily. ALLERGIES: PENICILLINS, PEANUTS AND CHOCOLATE FLAVORING, nature of these allergies is unknown. DIET: Well-built gentleman. Caregiver denies acute weight loss or gain in the preceding few weeks to months. FAMILY AND SOCIAL HISTORY: Lives in a residential, assisted living home. No current alcohol, tobacco, or illicit drug use or abuse. Remote history is unknown. REVIEW OF SYSTEMS: Unobtainable secondary to patient's medical and mental condition. Since he has been in the ICU and intubated, no repeat seizures have been reported. No bloody tracheal secretions. No gross hematochezia or melena. No hematemesis. Review of systems is otherwise unobtainable or as in the body of history above. PHYSICAL EXAMINATION: VITAL SIGNS: At presentation in the Emergency Room, review of vital signs, he was afebrile, temperature 98.5 degrees Fahrenheit, pulse of 107, respiratory rate of 19, blood pressure 129/79, oxygen sats were 95%, inspired oxygen concentration was not recorded. He has had blood pressures as low as systolics of 80s. Current blood pressure is MAP of 70. T-max 100.3 degrees Fahrenheit yesterday. GENERAL: He is a well-built, elderly-looking male. He has sequelae of his craniotomy on examination of the head. He is on the mechanical ventilator with mildly increased respiratory effort at rest. HEAD, EYES, EARS, NOSE AND THROAT: He is anicteric. No conjunctival erythema. Oropharynx is moist. Endotracheal tube is in place, taped at the lips around 23 cm. Grossly, no palpable lymph nodes in the supraclavicular or submandibular lymph node chains. He has old healed tracheostomy scar in the midline of his neck. No thyromegaly. LUNGS: Auscultation of both lung [place], faint inspiratory rales in the bases. No wheezing. HEART: Heart sounds 1 and 2 are heard. They were regular in rate and rhythm at the time of my evaluation, without rubs or murmurs. ABDOMEN: Soft, full, bowel sounds are positive, nontender, no palpable hepatosplenomegaly. EXTREMITIES: Without overt digital clubbing or cyanosis and no pedal edema. The skin is of normal turgor without cellulitis or rash. NEUROLOGIC: The pupils were equal, round, about 3 mm, reactive to light. Extraocular muscle movements were intact. He had a right hemiparesis with contractures to the right upper extremity in particular. No overt fasciculations. No active seizures. LABORATORY DATA: From my review are as follows: Admission white cell count 8400 with a hemoglobin of 14.9, hematocrit of 41.9 and platelet count of 218. No band forms. Initial blood gas pre-intubation showed a pH of 7.23, pCO2 of 60, pO2 of 76, that appeared to have been on about 6 liters nasal cannula. Serum sodium is 144, potassium 4.3, chloride 107, bicarbonate 24, BUN 14, creatinine 0.9, and glucose was 93. Liver function tests essentially within normal limits. CPK was elevated at 427 at presentation. Urinalysis was unremarkable. Serum magnesium was 1.60 at presentation and is 1.60 today. Microbiology studies: Two sets of blood cultures, tracheal aspirate no growth to date. RADIOLOGICAL DATA: Chest x-ray has been reviewed. Most recent chest x-ray, endotracheal tube tip appears in place at the level of the aortic knob. It is severely rotated to the right. There appears to be borderline cardiomegaly, increased interstitial markings, suggestion of early interstitial edema; however, that is the most recent rotation and rotated x-ray. An x-ray from presentation in November shows elevation of the left hemidiaphragm, which I believe must be sequelae of his prior traumatic injury. I have a chest x-ray from September of last year and he also had elevation of that left hemidiaphragm with displacement of the heart into the right side, really nothing looking acute now. No gross pneumothorax, no gross bony fractures that I can see. He also had a CT scan of his brain at presentation. I have reviewed the radiologist's interpretation and there does not seem to be any acute process there. ASSESSMENT: 1. Acute hypoxemic hypercapnic respiratory failure, on mechanical ventilatory support. 2. Status epilepticus. 3. History of seizures. 4. History of traumatic brain injury. 5. Hypertension. 6. Diabetes. 7. Oropharyngeal dysphagia. 8. Leukocytosis with a white count of 19,700 today. 9. Hypomagnesemia. 10. Elevated CPK. PLAN: He has been seizure free since he has been in the intensive care unit. He is on a spontaneous breathing trial and we will get arterial blood gases to go with that. He appears to be doing very well, pulling good tidal volumes. If he does do well, the plan will be to extubate him. In the meantime, we will continue IV fluids at 75 mL per hour for 1 more liter in light of the hypotension that might partially have been related to kal-intubation drugs, but just to be on the safe side, we will continue the gentle hydration, he is making urine. We will change the Keppra back to the 2 grams b.i.d. dose that he was on. We will begin a systemic steroid taper, the stress dose steroids will be tapered. I will get a CRP level and lactic acid level to better evaluate the true infectious potential of this leukocytosis. At the same time, we will continue Levaquin for now. If the CRP levels and lactates are unremarkable, I will empirically discontinue Levaquin and if they are significantly elevated, I will choose a different antibiotic in light of the low risk of seizures associated with Levaquin. Aspiration precautions are being maintained. Ventilator-associated pneumonia bundle has been instituted, sedation is on hold. I will hold on enteral nutrition. If he is extubated, he will go back to his mechanical soft diet after passing dysphagia screen and/or a swallow evaluation. Magnesium levels have been replaced. He is appropriately on GI and DVT prophylaxis. Flu and pneumonia vaccination will be addressed per protocol. Hopefully, he does do well and is quickly liberated from the mechanical ventilator. I have discussed the care plan with his caregiver and they are in agreement. He certainly is critically ill, on life-sustaining interventions including mechanical ventilatory support and at high risk for further deterioration including the risk of . At this time, I spent about 40 minutes of critical care time without overlap and excluding any procedural time that may be necessary. I should mention we have been in contact with his outpatient neurologist and he is also assisting with guidance of therapy. We will continue the Dilantin for now with a plan to taper it off prior to discharge. Thank you very much for the consult. We will follow along and make further recommendations as picture progresses/becomes clearer. JOB# [id number] CYNDIE/ALLI EUBANKS
[2018-12-04] MEDS: ATIVAN IV PRN ×2 (01:10→06:01)
[2018-12-04 05:01] LABS: Hematocrit 38.3 % (35.5-45.6); Hemoglobin 13.1 gm/dl (11.8-15.2); Mean Corpuscular HGB Conc 34 % (32-34); Mean Corpuscular Volume 90 fl (84-94); Platelet Count 188 K/mm3 (140-440); Red Blood Count 4.27 M/mm3 (3.65-5.03); Red Cell Distribution Width 14.1 % (13.2-15.2)
[2018-12-04 05:09] LABS: BUN/Creatinine Ratio 15; Blood Urea Nitrogen 12 mg/dL (9-20); Calcium 7.8 mg/dL (8.4-10.2); Hemolysis Index 48
[2018-12-04] MEDS: VANCOMYCIN/NS 1 GM/250 ML 1 GM/250 ML BAG IV SCH ×2 (05:19→18:02)
[2018-12-04] MEDS: FLAGYL 500 MG/100 ML 500 MG/100 ML BAG IV SCH ×3 (05:20→21:34)
[2018-12-04] MEDS: [UNRECOGNIZED DRUG - OTHER] IV SCH ×3 (05:21→21:33)
[2018-12-04] MEDS: VIMPAT 100 MG in NACL 0.9% 100 ML IV SCH ×2 (05:21→18:01)
[2018-12-04] MEDS: NACL IV SCH ×3 (05:21→21:33)
[2018-12-04] MEDS: CEREBYX IV SCH ×3 (05:21→21:33)
[2018-12-04] MEDS: DUONEB *Not for PRN Use IH SCH ×2 (07:35→14:21)
--- NOTE | 2018-12-04 09:42 | Progress Note ---
Assessment and Plan Assessment and plan: Patient is a 62 yo man from [facility] with a history of traumatic brain injury after mechanical fall in 2013 with subsequent cognitive impairment/SDH stroke s/p craniotomy/right sided hemiparesis, relative low blood pressure and seizure disorder who pw recurrent seizures. Construction Representative, Mr. Jain says that he has not had his baseline mental status and that he is usu ally verbal and conversive. He is on 2000 mg of keppra bid by his PCP, Dr. Esme Matthew, which is over the maxiumum of 3000/day. So, I called his Neurologist, Dr. Braswell's cell phone and left a message. Dr. Braswell called me back, pt last seen 11/08/18 and on keppra 2000 mg bid and Vimpat 50mg am. Pt still having seizures, and instructed me to increase Vimpat to 100 mg bid and look for infection Acute respiratory failure s/p ETT intubation for airway protection: consulted CCM Acute encephalopathy from seizures, poa: control the seizures, use iv Versed drip Acidosis on ABG; consulted Pulmonology Status epilepticus: continue keppra, use iv ativan prn for breakthrough sz, consulted Neurology==iv load with fosphenytoin and ordered maintenance dosing Hypotension: closely monitor TBI: Aspiration precautions Low grade temp: cxr yesterday unremarkable, get bctx, empiric treat with abx, use levaquin due to pcn allergy Chronic steroid use: started iv solu cortef while npo DVT prophylaxis Advance directives discussed with poa Mr. Mary CCT 32 minutes Subjective Date of service: 12/03/18 Principal diagnosis: Seizures Interval history: Doing well Objective - Constitutional Vitals: Vital Signs - 12hr 12/03/18 12/03/18 12/03/18 21:44 22:00 22:30 Temperature Pulse Rate 91 H 87 Pulse Rate [ Anterior Bilateral] Pulse Rate [ From Monitor] Respiratory 26 H 24 Rate Respiratory Rate [Anterior Bilateral] Blood Pressure 106/52 106/52 O2 Sat by Pulse 97 100 Oximetry 12/03/18 12/04/18 12/04/18 23:32 00:00 02:38 Temperature 98.4 F Pulse Rate 87 110 H Pulse Rate [ Anterior Bilateral] Pulse Rate [ From Monitor] Respiratory 30 H Rate Respiratory Rate [Anterior Bilateral] Blood Pressure 106/52 O2 Sat by Pulse 100 97 Oximetry 12/04/18 12/04/18 12/04/18 03:00 03:16 03:30 Temperature 98.8 F Pulse Rate 117 H 110 H Pulse Rate [ Anterior Bilateral] Pulse Rate [ From Monitor] Respiratory 21 24 Rate Respiratory Rate [Anterior Bilateral] Blood Pressure 119/66 112/59 O2 Sat by Pulse 92 95 Oximetry 12/04/18 12/04/18 12/04/18 04:00 04:30 05:00 Temperature Pulse Rate 107 H 95 H 94 H Pulse Rate [ Anterior Bilateral] Pulse Rate [ From Monitor] Respiratory 20 21 14 Rate Respiratory Rate [Anterior Bilateral] Blood Pressure 112/59 127/91 127/91 O2 Sat by Pulse 96 93 96 Oximetry 12/04/18 12/04/18 12/04/18 05:30 06:00 06:38 Temperature Pulse Rate 96 H 98 H 84 Pulse Rate [ Anterior Bilateral] Pulse Rate [ From Monitor] Respiratory 12 26 H 28 H Rate Respiratory Rate [Anterior Bilateral] Blood Pressure 108/48 108/48 108/48 O2 Sat by Pulse 100 99 Oximetry 12/04/18 12/04/18 12/04/18 07:00 07:30 07:35 Temperature Pulse Rate 92 H 82 Pulse Rate [ 75 Anterior Bilateral] Pulse Rate [ From Monitor] Respiratory 27 H 27 H Rate Respiratory 24 Rate [Anterior Bilateral] Blood Pressure 99/52 92/54 O2 Sat by Pulse 98 Oximetry 12/04/18 12/04/18 12/04/18 07:38 07:45 08:00 Temperature 98.2 F Pulse Rate 80 Pulse Rate [ 79 Anterior Bilateral] Pulse Rate [ 80 From Monitor] Respiratory 28 H Rate Respiratory 22 Rate [Anterior Bilateral] Blood Pressure 98/50 O2 Sat by Pulse 98 98 Oximetry 12/04/18 12/04/18 12/04/18 08:30 09:00 09:30 Temperature Pulse Rate 80 81 77 Pulse Rate [ Anterior Bilateral] Pulse Rate [ From Monitor] Respiratory 28 H 23 26 H Rate Respiratory Rate [Anterior Bilateral] Blood Pressure 98/50 98/50 88/52 O2 Sat by Pulse 99 97 99 Oximetry General appearance: Present: no acute distress, well-nourished - EENT Eyes: PERRL, EOM intact ENT: hearing intact, clear oral mucosa Ears: bilateral: normal - Neck Details: 78 Neck: supple, normal ROM - Respiratory Respiratory effort: normal Respiratory: bilateral: CTA - Breasts Breasts: normal - Cardiovascular Rhythm: regular Heart Sounds: Present: S1 & S2. Absent: gallop, rub Extremities: no ischemia, pulses intact, No edema, normal color, Full ROM - Gastrointestinal General gastrointestinal: Present: soft, non-tender, non-distended, normal bowel sounds - Genitourinary Male genitourinary: normal - Integumentary Integumentary: clear, warm, dry - Musculoskeletal Musculoskeletal: 1, strength equal bilaterally - Neurologic Neurologic: moves all extremities - Psychiatric Psychiatric: memory intact, appropriate mood/affect, intact judgment & insight - Labs CBC & Chem 7: 12/04/18 04:16 12/04/18 04:16 Labs: Abnormal lab results 12/03/18 12/04/18 12/04/18 Range/Units 13:55 04:16 04:16 WBC 15.5 H (4.5-11.0) K/mm3 Potassium 3.4 L (3.6-5.0) mmol/L Glucose 117 H (75-100) mg/dL Calcium 7.8 L (8.4-10.2) mg/dL C-Reactive Protein 14.50 H (0.00-1.30) mg/dL
--- NOTE | 2018-12-04 09:42 | Progress Note ---
Subjective Date of service: 12/03/18 Principal diagnosis: Persisrtent seizures and sepsis/LL [place] Interval history: Doing well Extubated Objective - Constitutional Vitals: Vital Signs - 12hr 12/03/18 12/03/18 12/03/18 21:44 22:00 22:30 Temperature Pulse Rate 91 H 87 Pulse Rate [ Anterior Bilateral] Pulse Rate [ From Monitor] Respiratory 26 H 24 Rate Respiratory Rate [Anterior Bilateral] Blood Pressure 106/52 106/52 O2 Sat by Pulse 97 100 Oximetry 12/03/18 12/04/18 12/04/18 23:32 00:00 02:38 Temperature 98.4 F Pulse Rate 87 110 H Pulse Rate [ Anterior Bilateral] Pulse Rate [ From Monitor] Respiratory 30 H Rate Respiratory Rate [Anterior Bilateral] Blood Pressure 106/52 O2 Sat by Pulse 100 97 Oximetry 12/04/18 12/04/18 12/04/18 03:00 03:16 03:30 Temperature 98.8 F Pulse Rate 117 H 110 H Pulse Rate [ Anterior Bilateral] Pulse Rate [ From Monitor] Respiratory 21 24 Rate Respiratory Rate [Anterior Bilateral] Blood Pressure 119/66 112/59 O2 Sat by Pulse 92 95 Oximetry 12/04/18 12/04/18 12/04/18 04:00 04:30 05:00 Temperature Pulse Rate 107 H 95 H 94 H Pulse Rate [ Anterior Bilateral] Pulse Rate [ From Monitor] Respiratory 20 21 14 Rate Respiratory Rate [Anterior Bilateral] Blood Pressure 112/59 127/91 127/91 O2 Sat by Pulse 96 93 96 Oximetry 12/04/18 12/04/18 12/04/18 05:30 06:00 06:38 Temperature Pulse Rate 96 H 98 H 84 Pulse Rate [ Anterior Bilateral] Pulse Rate [ From Monitor] Respiratory 12 26 H 28 H Rate Respiratory Rate [Anterior Bilateral] Blood Pressure 108/48 108/48 108/48 O2 Sat by Pulse 100 99 Oximetry 12/04/18 12/04/18 12/04/18 07:00 07:30 07:35 Temperature Pulse Rate 92 H 82 Pulse Rate [ 75 Anterior Bilateral] Pulse Rate [ From Monitor] Respiratory 27 H 27 H Rate Respiratory 24 Rate [Anterior Bilateral] Blood Pressure 99/52 92/54 O2 Sat by Pulse 98 Oximetry 12/04/18 12/04/18 12/04/18 07:38 07:45 08:00 Temperature 98.2 F Pulse Rate 80 Pulse Rate [ 79 Anterior Bilateral] Pulse Rate [ 80 From Monitor] Respiratory 28 H Rate Respiratory 22 Rate [Anterior Bilateral] Blood Pressure 98/50 O2 Sat by Pulse 98 98 Oximetry 12/04/18 12/04/18 12/04/18 08:30 09:00 09:30 Temperature Pulse Rate 80 81 77 Pulse Rate [ Anterior Bilateral] Pulse Rate [ From Monitor] Respiratory 28 H 23 26 H Rate Respiratory Rate [Anterior Bilateral] Blood Pressure 98/50 98/50 88/52 O2 Sat by Pulse 99 97 99 Oximetry General appearance: Present: no acute distress, well-nourished - EENT Eyes: PERRL, EOM intact ENT: hearing intact, clear oral mucosa Ears: bilateral: normal - Neck Neck: supple, normal ROM - Respiratory Respiratory effort: normal Respiratory: bilateral: CTA - Breasts Breasts: normal - Cardiovascular Heart rate: 78 Rhythm: regular Heart Sounds: Present: S1 & S2. Absent: gallop, rub Extremities: no ischemia, pulses intact, No edema, normal color, Full ROM - Gastrointestinal General gastrointestinal: Present: soft, non-tender, non-distended, normal bowel sounds - Genitourinary Male genitourinary: deferred, normal - Integumentary Integumentary: clear, warm, dry - Musculoskeletal Musculoskeletal: 1, strength equal bilaterally - Neurologic Neurologic: moves all extremities - Psychiatric Psychiatric: memory intact, appropriate mood/affect, intact judgment & insight - Allied health notes Allied health notes reviewed: nursing, case management - Labs CBC & Chem 7: 12/05/18 04:48 12/05/18 04:48 Labs: Abnormal lab results 12/03/18 12/04/18 12/04/18 Range/Units 13:55 04:16 04:16 WBC 15.5 H (4.5-11.0) K/mm3 Potassium 3.4 L (3.6-5.0) mmol/L Glucose 117 H (75-100) mg/dL Calcium 7.8 L (8.4-10.2) mg/dL C-Reactive Protein 14.50 H (0.00-1.30) mg/dL
[2018-12-04] MEDS: HEPARIN SUB-Q SCH ×2 (09:43→21:20)
[2018-12-04] MEDS: PROTONIX IV SCH (09:43)
[2018-12-04] MEDS: LEVAQUIN 750MG/150ML 750 MG/150 ML BAG IV SCH (09:43)
[2018-12-04] MEDS: KEPPRA IV SCH ×2 (09:45→21:14)
[2018-12-04] MEDS: D5W IV SCH ×2 (09:45→21:14)
--- NOTE | 2018-12-04 11:40 | Progress Note ---
Assessment and Plan Cultures: Blood culture 12/02/2018 no growth today. Sputum 12/02/2018 normal respiratory prema. 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 Etiology most likely HCAP v/s aspiration. Blood culture 12/02/2018 no growth today. UA neg. 2) Presumed HCAP v/s aspiration: CXR showed left lower lobe infiltrate/atelectasis. Sputum 12/02/2018 normal respiratory prema. 3) Acute encephalopathy: from seizures. CT head showed single large left frontal and temporal craniotomy defect, asymmetry of the lateral ventricles with ex vacuo dilatation of the left lateral ventricle, extensive encephalomalacia in the left hemisphere consistent with old surgery or injury. 4) Acute respiratory failure 5) Status epilecticus 6) Remote PCN allergy: discussed with primary caregiver, remote allergy, >20 years ago, no anaphylaxis. Recommendations: - discontinued Levofloxacin, it could lower seizure threshold - started IV Ceftriaxone 1 gm q24 hrs - continue Flagyl and Vancomycin for now - MRSA nasal PCR ordered - monitor WBC Brittaney Yap MD [facility] C: [phone] O: [phone] F: [phone] Subjective Date of service: 12/04/18 Principal diagnosis: Seizures Interval history: More awake today. purchasing agent at bedside, reports occasional stiffness/seizure type activity. No fever. Penicillin allergy was remote and likely rash Objective - Exam Narrative Exam: Physical Exam: Constitutional: Alert, cooperative. No acute distress Head, Ears, Nose: Normocephalic, atraumatic. External ears, nose normal. Facial asymmetry Eyes: Conjunctivae/corneas clear. No icterus. No ptosis. Neck: Supple, no meningeal signs Oral: no thrush Cardiovascular: S1, S2 normal. Respiratory: Good air entry, clear to auscultation bilaterally GI: Soft, non-tender; bowel sounds normal. No peritoneal signs Musculoskeletal: No pedal edema, no cyanosis. Skin: No rash or abscess Hem/Lymphatic: No palpable cervical or supraclavicular nodes. No lymphangitis Psych: no agitation Neurological: Awake, alert, can follow commands - Constitutional Vitals: Vital Signs Temp Pulse Resp BP Pulse Ox 98.2 F 77 26 H 88/52 99 12/04/18 08:00 12/04/18 09:30 12/04/18 09:30 12/04/18 09:30 12/04/18 09:30 Temperature -Last 24 Hours Temperature 98.2 F Temperature 98.8 F Temperature 98.4 F Temperature 98.3 F Temperature 98.6 F Temperature 100.6 F - Labs CBC & Chem 7: 12/04/18 04:16 12/04/18 04:16 Labs: Abnormal lab results 12/03/18 12/04/18 12/04/18 Range/Units 13:55 04:16 04:16 WBC 15.5 H (4.5-11.0) K/mm3 Potassium 3.4 L (3.6-5.0) mmol/L Glucose 117 H (75-100) mg/dL Calcium 7.8 L (8.4-10.2) mg/dL C-Reactive Protein 14.50 H (0.00-1.30) mg/dL - Imaging and cardiology Chest x-ray: report reviewed, image reviewed (subtle left sided infiltarate, left hemidiaphragm is high)
--- NOTE | 2018-12-04 12:16 | Progress Note ---
Assessment and Plan Acute hypoxemic hypercapnic respiratory failure, on mechanical ventilatory support. Status epilepticus. History of seizures. History of traumatic brain injury. Hypertension. Diabetes. Oropharyngeal dysphagia. Leukocytosis with a white count of 19,700 today. Hypomagnesemia. Elevated CPK. - continue supplemental oxygen to keep sats > 90% - continue aspiration precautions - continue AED's and adjust per neuroliogy recommendations - prn BIPAP - agree with discontinuing Levaquin - continue antiinfective's per ID recs (Rocephin) - PT/OT as tolerated - continue systemic steroid taper - continue other care per attending / other consultants .... re-evaluate in am & prn Subjective Date of service: 12/04/18 Principal diagnosis: Acute hypoxemic hypercapnic Resp failure; Status epilepticus; Hypertension Interval history: Patient is seen today for: Acute hypoxemic hypercapnic Resp failure; Status epilepticus; History of seizures; History of traumatic brain injury; Hypertension; Diabetes. Seen and examined at bedside; 24hour events reviewed; nursing and respiratory care staff consulted; no adverse overnight events reported to me; doing much better overall; answers my questions appropriately; no reported seizures; remains on supplemental oxygen Objective Vital Signs - 12hr 12/04/18 12/04/18 12/04/18 02:38 03:00 03:16 Temperature 98.8 F Pulse Rate 110 H 117 H Pulse Rate [ Anterior Bilateral] Pulse Rate [ From Monitor] Respiratory 30 H 21 Rate Respiratory Rate [Anterior Bilateral] Blood Pressure 106/52 119/66 O2 Sat by Pulse 97 92 Oximetry 12/04/18 12/04/18 12/04/18 03:30 04:00 04:30 Temperature Pulse Rate 110 H 107 H 95 H Pulse Rate [ Anterior Bilateral] Pulse Rate [ From Monitor] Respiratory 24 20 21 Rate Respiratory Rate [Anterior Bilateral] Blood Pressure 112/59 112/59 127/91 O2 Sat by Pulse 95 96 93 Oximetry 12/04/18 12/04/18 12/04/18 05:00 05:30 06:00 Temperature Pulse Rate 94 H 96 H 98 H Pulse Rate [ Anterior Bilateral] Pulse Rate [ From Monitor] Respiratory 14 12 26 H Rate Respiratory Rate [Anterior Bilateral] Blood Pressure 127/91 108/48 108/48 O2 Sat by Pulse 96 100 Oximetry 12/04/18 12/04/18 12/04/18 06:38 07:00 07:30 Temperature Pulse Rate 84 92 H 82 Pulse Rate [ Anterior Bilateral] Pulse Rate [ From Monitor] Respiratory 28 H 27 H 27 H Rate Respiratory Rate [Anterior Bilateral] Blood Pressure 108/48 99/52 92/54 O2 Sat by Pulse 99 98 Oximetry 12/04/18 12/04/18 12/04/18 07:35 07:38 07:45 Temperature Pulse Rate Pulse Rate [ 75 79 Anterior Bilateral] Pulse Rate [ From Monitor] Respiratory Rate Respiratory 24 22 Rate [Anterior Bilateral] Blood Pressure O2 Sat by Pulse 98 Oximetry 12/04/18 12/04/18 12/04/18 08:00 08:30 09:00 Temperature 98.2 F Pulse Rate 80 80 81 Pulse Rate [ Anterior Bilateral] Pulse Rate [ 80 From Monitor] Respiratory 28 H 28 H 23 Rate Respiratory Rate [Anterior Bilateral] Blood Pressure 98/50 98/50 98/50 O2 Sat by Pulse 98 99 97 Oximetry 12/04/18 09:30 Temperature Pulse Rate 77 Pulse Rate [ Anterior Bilateral] Pulse Rate [ From Monitor] Respiratory 26 H Rate Respiratory Rate [Anterior Bilateral] Blood Pressure 88/52 O2 Sat by Pulse 99 Oximetry Constitutional: no acute distress, alert, other (elderly and chronically ill looking CM with post traumatic scalp changes) Eyes: non-icteric ENT: oropharynx moist Neck: supple, no lymphadenopathy, no JVD Effort: mildly labored Ascultation: Bilateral: clear, diminished breath sounds Percussion: Bilateral: not dull Cardiovascular: regular rate and rhythm Gastrointestinal: normoactive bowel sounds, soft, non-tender, non-distended Extremities: no cyanosis, no edema, pink and warm, pulses normal Neurologic: normal mental status, other (right hemiparesis) Psychiatric: mood appropriate CBC and BMP: 12/04/18 04:16 12/04/18 04:16 ABG, PT/INR, D-dimer: ABG POC ABG pH 7.387 (7.35-7.45) 12/03/18 11:29 POC ABG pCO2 39.4 (35-45) 12/03/18 11:29 POC ABG pO2 97 (80-105) 12/03/18 11:29 POC ABG HCO3 23.7 12/03/18 11:29 POC ABG Total CO2 25 12/03/18 11:29 POC ABG O2 Sat 97 12/03/18 11:29 Abnormal lab findings: Abnormal Labs 11/30/18 11/30/18 12/02/18 23:41 23:41 06:57 WBC Hgb MCHC 36 H [place] % (Auto) 9.5 H Eos % (Auto) 4.9 H POC ABG pH POC ABG pCO2 POC ABG pO2 Potassium BUN 8 L Creatinine 0.7 L Glucose Calcium 7.8 L Magnesium Total Creatine Kinase 427 H C-Reactive Protein 12/02/18 12/02/18 12/02/18 12:24 14:08 14:08 WBC Hgb MCHC [place] % (Auto) Eos % (Auto) POC ABG pH 7.229 L POC ABG pCO2 59.9 H POC ABG pO2 76 L Potassium BUN Creatinine Glucose Calcium 8.0 L Magnesium 1.60 L Total Creatine Kinase C-Reactive Protein 12/02/18 12/02/18 12/03/18 19:18 Unknown 07:15 WBC 19.7 H Hgb 15.5 H MCHC 35 H [place] % (Auto) Eos % (Auto) POC ABG pH 7.349 L POC ABG pCO2 POC ABG pO2 232 H Potassium BUN Creatinine Glucose Calcium Magnesium Total Creatine Kinase C-Reactive Protein 12/03/18 12/03/18 12/03/18 07:15 08:09 13:55 WBC Hgb MCHC [place] % (Auto) Eos % (Auto) POC ABG pH POC ABG pCO2 POC ABG pO2 136 H Potassium BUN Creatinine Glucose 139 H Calcium 7.7 L Magnesium 1.60 L Total Creatine Kinase C-Reactive Protein 14.50 H 12/04/18 12/04/18 04:16 04:16 WBC 15.5 H Hgb MCHC [place] % (Auto) Eos % (Auto) POC ABG pH POC ABG pCO2 POC ABG pO2 Potassium 3.4 L BUN Creatinine Glucose 117 H Calcium 7.8 L Magnesium Total Creatine Kinase C-Reactive Protein Allied health notes reviewed: nursing
--- NOTE | 2018-12-04 13:13 | Progress Note ---
Subjective Date of service: 12/04/18 Principal diagnosis: Acute hypoxemic hypercapnic Resp failure; Status epilepticus; Hypertension Interval history: spoke to family members about current seizure control which is better post tx of infection Objective - Vital Sign Vital Signs - 12hr 12/04/18 12/04/18 12/04/18 02:38 03:00 03:16 Temperature 98.8 F Pulse Rate 110 H 117 H Pulse Rate [ Anterior Bilateral] Pulse Rate [ From Monitor] Respiratory 30 H 21 Rate Respiratory Rate [Anterior Bilateral] Blood Pressure 106/52 119/66 O2 Sat by Pulse 97 92 Oximetry 12/04/18 12/04/18 12/04/18 03:30 04:00 04:30 Temperature Pulse Rate 110 H 107 H 95 H Pulse Rate [ Anterior Bilateral] Pulse Rate [ From Monitor] Respiratory 24 20 21 Rate Respiratory Rate [Anterior Bilateral] Blood Pressure 112/59 112/59 127/91 O2 Sat by Pulse 95 96 93 Oximetry 12/04/18 12/04/18 12/04/18 05:00 05:30 06:00 Temperature Pulse Rate 94 H 96 H 98 H Pulse Rate [ Anterior Bilateral] Pulse Rate [ From Monitor] Respiratory 14 12 26 H Rate Respiratory Rate [Anterior Bilateral] Blood Pressure 127/91 108/48 108/48 O2 Sat by Pulse 96 100 Oximetry 12/04/18 12/04/18 12/04/18 06:38 07:00 07:30 Temperature Pulse Rate 84 92 H 82 Pulse Rate [ Anterior Bilateral] Pulse Rate [ From Monitor] Respiratory 28 H 27 H 27 H Rate Respiratory Rate [Anterior Bilateral] Blood Pressure 108/48 99/52 92/54 O2 Sat by Pulse 99 98 Oximetry 12/04/18 12/04/18 12/04/18 07:35 07:38 07:45 Temperature Pulse Rate Pulse Rate [ 75 79 Anterior Bilateral] Pulse Rate [ From Monitor] Respiratory Rate Respiratory 24 22 Rate [Anterior Bilateral] Blood Pressure O2 Sat by Pulse 98 Oximetry 12/04/18 12/04/18 12/04/18 08:00 08:30 09:00 Temperature 98.2 F Pulse Rate 80 80 81 Pulse Rate [ Anterior Bilateral] Pulse Rate [ 80 From Monitor] Respiratory 28 H 28 H 23 Rate Respiratory Rate [Anterior Bilateral] Blood Pressure 98/50 98/50 98/50 O2 Sat by Pulse 98 99 97 Oximetry 12/04/18 12/04/18 12/04/18 09:30 10:00 10:30 Temperature Pulse Rate 77 75 77 Pulse Rate [ Anterior Bilateral] Pulse Rate [ From Monitor] Respiratory 26 H 26 H 26 H Rate Respiratory Rate [Anterior Bilateral] Blood Pressure 88/52 87/54 87/54 O2 Sat by Pulse 99 100 100 Oximetry 12/04/18 12/04/18 12/04/18 11:00 11:30 12:00 Temperature Pulse Rate 70 70 82 Pulse Rate [ Anterior Bilateral] Pulse Rate [ From Monitor] Respiratory 25 H 19 12 Rate Respiratory Rate [Anterior Bilateral] Blood Pressure 87/54 87/54 87/54 O2 Sat by Pulse 99 99 98 Oximetry - Laboratory Findings CBC and BMP: 12/04/18 04:16 12/04/18 04:16 Abnormal Lab Findings: Abnormal Labs 11/30/18 11/30/18 12/02/18 23:41 23:41 06:57 WBC Hgb MCHC 36 H [place] % (Auto) 9.5 H Eos % (Auto) 4.9 H POC ABG pH POC ABG pCO2 POC ABG pO2 Potassium BUN 8 L Creatinine 0.7 L Glucose Calcium 7.8 L Magnesium Total Creatine Kinase 427 H C-Reactive Protein 12/02/18 12/02/18 12/02/18 12:24 14:08 14:08 WBC Hgb MCHC [place] % (Auto) Eos % (Auto) POC ABG pH 7.229 L POC ABG pCO2 59.9 H POC ABG pO2 76 L Potassium BUN Creatinine Glucose Calcium 8.0 L Magnesium 1.60 L Total Creatine Kinase C-Reactive Protein 12/02/18 12/02/18 12/03/18 19:18 Unknown 07:15 WBC 19.7 H Hgb 15.5 H MCHC 35 H [place] % (Auto) Eos % (Auto) POC ABG pH 7.349 L POC ABG pCO2 POC ABG pO2 232 H Potassium BUN Creatinine Glucose Calcium Magnesium Total Creatine Kinase C-Reactive Protein 12/03/18 12/03/18 12/03/18 07:15 08:09 13:55 WBC Hgb MCHC [place] % (Auto) Eos % (Auto) POC ABG pH POC ABG pCO2 POC ABG pO2 136 H Potassium BUN Creatinine Glucose 139 H Calcium 7.7 L Magnesium 1.60 L Total Creatine Kinase C-Reactive Protein 14.50 H 12/04/18 12/04/18 04:16 04:16 WBC 15.5 H Hgb MCHC [place] % (Auto) Eos % (Auto) POC ABG pH POC ABG pCO2 POC ABG pO2 Potassium 3.4 L BUN Creatinine Glucose 117 H Calcium 7.8 L Magnesium Total Creatine Kinase C-Reactive Protein
[2018-12-04] MEDS: ROCEPHIN/NS 1 GM/50 ML 1 GM/50 ML BAG IV SCH (13:48)
[2018-12-05] MEDS: FLAGYL 500 MG/100 ML 500 MG/100 ML BAG IV SCH ×3 (05:20→22:15)
[2018-12-05] MEDS: [UNRECOGNIZED DRUG - OTHER] IV SCH ×3 (05:20→22:15)
[2018-12-05] MEDS: CEREBYX IV SCH ×3 (05:20→22:15)
[2018-12-05] MEDS: NACL IV SCH ×3 (05:20→22:15)
[2018-12-05 05:41] LABS: Hematocrit 40.7 % (35.5-45.6); Hemoglobin 13.6 gm/dl (11.8-15.2); Mean Corpuscular HGB Conc 33 % (32-34); Mean Corpuscular Volume 92 fl (84-94); Platelet Count 166 K/mm3 (140-440); Red Blood Count 4.45 M/mm3 (3.65-5.03); Red Cell Distribution Width 14.5 % (13.2-15.2)
[2018-12-05 05:54] LABS: BUN/Creatinine Ratio 21; Blood Urea Nitrogen 17 mg/dL (9-20); Calcium 7.6 mg/dL (8.4-10.2); Hemolysis Index 10
[2018-12-05] MEDS: VIMPAT 100 MG in NACL 0.9% 100 ML IV SCH ×2 (07:09→19:46)
[2018-12-05] MEDS: VANCOMYCIN/NS 1 GM/250 ML 1 GM/250 ML BAG IV SCH ×2 (09:37→19:47)
[2018-12-05] MEDS: DUONEB *Not for PRN Use IH SCH ×4 (09:46→20:17)
[2018-12-05] MEDS: KEPPRA IV SCH ×2 (10:46→22:15)
[2018-12-05] MEDS: D5W IV SCH ×2 (10:46→22:15)
[2018-12-05] MEDS: HEPARIN SUB-Q SCH ×2 (10:47→22:16)
[2018-12-05] MEDS: ROCEPHIN/NS 1 GM/50 ML 1 GM/50 ML BAG IV SCH (10:47)
[2018-12-05] MEDS: PROTONIX IV SCH (10:47)
[2018-12-05] MEDS ORDERED: NACL 0.9% 500 ML 500 ML ONE (11:08)
--- NOTE | 2018-12-05 12:55 | Progress Note ---
Assessment and Plan Assessment and plan: Status epilepticus: Controlled Hypotension: Improved TBI: Aspiration precaution] LL pneumonia Cont Ceftriaxone Debility Probably bed ridden for long time PT eval Discharge planning issues--may go back to his health care consultant if he is willing to take back Start clear liquida and advance Subjective Date of service: 12/05/18 Principal diagnosis: Persisrtent seizures and sepsis/LL oneumonia Interval history: Doing well No Seizures Afebrile Objective - Constitutional Vitals: Vital Signs - 12hr 12/05/18 12/05/18 12/05/18 01:00 02:00 03:00 Temperature Pulse Rate 67 62 68 Pulse Rate [ Anterior Bilateral] Pulse Rate [ From Monitor] Respiratory 26 H 25 H 22 Rate Respiratory Rate [Anterior Bilateral] Blood Pressure 118/56 110/56 103/56 O2 Sat by Pulse 96 94 94 Oximetry 12/05/18 12/05/18 12/05/18 04:00 05:00 06:00 Temperature 97.6 F Pulse Rate 60 66 64 Pulse Rate [ Anterior Bilateral] Pulse Rate [ 70 From Monitor] Respiratory 22 28 H 26 H Rate Respiratory Rate [Anterior Bilateral] Blood Pressure 109/55 109/55 114/61 O2 Sat by Pulse 97 100 96 Oximetry 12/05/18 12/05/18 12/05/18 07:00 08:00 09:00 Temperature 98.6 F Pulse Rate 73 60 71 Pulse Rate [ Anterior Bilateral] Pulse Rate [ 71 From Monitor] Respiratory 27 H 26 H 29 H Rate Respiratory Rate [Anterior Bilateral] Blood Pressure 121/69 99/51 99/51 O2 Sat by Pulse 94 96 Oximetry 12/05/18 12/05/18 12/05/18 09:46 09:50 09:57 Temperature Pulse Rate Pulse Rate [ 61 69 Anterior Bilateral] Pulse Rate [ From Monitor] Respiratory Rate Respiratory 24 20 Rate [Anterior Bilateral] Blood Pressure O2 Sat by Pulse 97 Oximetry 12/05/18 12/05/18 12/05/18 10:00 11:00 12:00 Temperature 97.8 F Pulse Rate 60 77 72 Pulse Rate [ Anterior Bilateral] Pulse Rate [ 73 From Monitor] Respiratory 21 25 H 26 H Rate Respiratory Rate [Anterior Bilateral] Blood Pressure 127/53 134/63 141/68 O2 Sat by Pulse 95 95 95 Oximetry General appearance: Present: no acute distress, well-nourished - EENT Eyes: PERRL, EOM intact ENT: hearing intact, clear oral mucosa Ears: bilateral: normal - Neck Neck: supple, normal ROM - Respiratory Respiratory effort: normal Respiratory: bilateral: CTA - Breasts Breasts: normal - Cardiovascular Heart rate: 78 Rhythm: regular Heart Sounds: Present: S1 & S2. Absent: gallop, rub Extremities: pulses intact, No edema, normal color, Full ROM - Gastrointestinal General gastrointestinal: Present: soft, non-tender, non-distended, normal bowel sounds - Genitourinary Male genitourinary: normal - Integumentary Integumentary: clear, warm, dry - Musculoskeletal Musculoskeletal: right sided weakness - Neurologic Neurologic: focal deficits - Psychiatric Psychiatric: other (Alert and Dysarthric) - Labs CBC & Chem 7: 12/05/18 04:48 12/05/18 04:48 Labs: Abnormal lab results 12/05/18 12/05/18 12/05/18 Range/Units 04:48 04:48 12:02 WBC 11.1 H (4.5-11.0) K/mm3 POC Glucose 61 L (70-105) Calcium 7.6 L (8.4-10.2) mg/dL
[2018-12-05] MEDS: VASELINE LIP THERAPY TP PRN (15:25)
--- NOTE | 2018-12-05 16:00 | Progress Note ---
Assessment and Plan Acute hypoxemic hypercapnic respiratory failure, on mechanical ventilatory support. Status epilepticus. History of seizures. History of traumatic brain injury. Hypertension. Diabetes. Oropharyngeal dysphagia. Leukocytosis with a white count of 19,700 today. Hypomagnesemia. Elevated CPK. - continue supplemental oxygen to keep sats > 90% - continue aspiration precautions - continue AED's and adjust per neuroliogy recommendations - prn BIPAP - agree with discontinuing Levaquin - continue antiinfective's per ID recs (Rocephin) - PT/OT as tolerated - continue systemic steroid taper - continue other care per attending / other consultants .... re-evaluate in am & prn Subjective Date of service: 12/05/18 Principal diagnosis: Acute hypoxemic hypercapnic Resp failure; Status epilepticus; Hypertension Interval history: Patient is seen today for: Acute hypoxemic hypercapnic Resp failure; Status epilepticus; History of seizures; History of traumatic brain injury; Hypertension; Diabetes. Seen and examined at bedside; 24hour events reviewed; nursing and respiratory care staff consulted; no adverse overnight events reported to me; resting peacefuly in bed; no emesis or overt aspiration; remains on supplemental oxygen; no active seizures Objective Vital Signs - 12hr 12/05/18 12/05/18 12/05/18 05:00 06:00 07:00 Temperature Pulse Rate 66 64 73 Pulse Rate [ Anterior Bilateral] Pulse Rate [ From Monitor] Respiratory 28 H 26 H 27 H Rate Respiratory Rate [Anterior Bilateral] Blood Pressure 109/55 114/61 121/69 O2 Sat by Pulse 100 96 94 Oximetry 12/05/18 12/05/18 12/05/18 08:00 09:00 09:46 Temperature 98.6 F Pulse Rate 60 71 Pulse Rate [ 61 Anterior Bilateral] Pulse Rate [ 71 From Monitor] Respiratory 26 H 29 H Rate Respiratory 24 Rate [Anterior Bilateral] Blood Pressure 99/51 99/51 O2 Sat by Pulse 96 Oximetry 12/05/18 12/05/18 12/05/18 09:50 09:57 10:00 Temperature Pulse Rate 60 Pulse Rate [ 69 Anterior Bilateral] Pulse Rate [ From Monitor] Respiratory 21 Rate Respiratory 20 Rate [Anterior Bilateral] Blood Pressure 127/53 O2 Sat by Pulse 97 95 Oximetry 12/05/18 12/05/18 12/05/18 11:00 12:00 13:00 Temperature 97.8 F Pulse Rate 77 72 71 Pulse Rate [ Anterior Bilateral] Pulse Rate [ 73 From Monitor] Respiratory 25 H 26 H 28 H Rate Respiratory Rate [Anterior Bilateral] Blood Pressure 134/63 141/68 133/67 O2 Sat by Pulse 95 95 97 Oximetry 12/05/18 12/05/18 12/05/18 14:00 15:40 15:52 Temperature Pulse Rate 80 Pulse Rate [ 74 74 Anterior Bilateral] Pulse Rate [ From Monitor] Respiratory 30 H Rate Respiratory 24 24 Rate [Anterior Bilateral] Blood Pressure 140/69 O2 Sat by Pulse 93 Oximetry Constitutional: no acute distress, alert, other (elderly and chronically ill looking CM with post traumatic scalp changes) Eyes: non-icteric ENT: oropharynx moist Neck: supple, no lymphadenopathy, no JVD Effort: mildly labored Ascultation: Bilateral: clear, diminished breath sounds Percussion: Bilateral: not dull Cardiovascular: regular rate and rhythm Gastrointestinal: normoactive bowel sounds, soft, non-tender, non-distended Extremities: no cyanosis, no edema, pink and warm, pulses normal Neurologic: normal mental status, other (right hemiparesis) Psychiatric: mood appropriate CBC and BMP: 12/06/18 05:30 12/06/18 05:30 ABG, PT/INR, D-dimer: ABG POC ABG pH 7.387 (7.35-7.45) 12/03/18 11:29 POC ABG pCO2 39.4 (35-45) 12/03/18 11:29 POC ABG pO2 97 (80-105) 12/03/18 11:29 POC ABG HCO3 23.7 12/03/18 11:29 POC ABG Total CO2 25 12/03/18 11:29 POC ABG O2 Sat 97 12/03/18 11:29 Abnormal lab findings: Abnormal Labs 11/30/18 11/30/18 12/02/18 23:41 23:41 06:57 WBC Hgb MCHC 36 H [place] % (Auto) 9.5 H Eos % (Auto) 4.9 H POC ABG pH POC ABG pCO2 POC ABG pO2 Potassium BUN 8 L Creatinine 0.7 L Glucose POC Glucose Calcium 7.8 L Magnesium Total Creatine Kinase 427 H C-Reactive Protein 12/02/18 12/02/18 12/02/18 12:24 14:08 14:08 WBC Hgb MCHC [place] % (Auto) Eos % (Auto) POC ABG pH 7.229 L POC ABG pCO2 59.9 H POC ABG pO2 76 L Potassium BUN Creatinine Glucose POC Glucose Calcium 8.0 L Magnesium 1.60 L Total Creatine Kinase C-Reactive Protein 12/02/18 12/02/18 12/03/18 19:18 Unknown 07:15 WBC 19.7 H Hgb 15.5 H MCHC 35 H [place] % (Auto) Eos % (Auto) POC ABG pH 7.349 L POC ABG pCO2 POC ABG pO2 232 H Potassium BUN Creatinine Glucose POC Glucose Calcium Magnesium Total Creatine Kinase C-Reactive Protein 12/03/18 12/03/18 12/03/18 07:15 08:09 13:55 WBC Hgb MCHC [place] % (Auto) Eos % (Auto) POC ABG pH POC ABG pCO2 POC ABG pO2 136 H Potassium BUN Creatinine Glucose 139 H POC Glucose Calcium 7.7 L Magnesium 1.60 L Total Creatine Kinase C-Reactive Protein 14.50 H 12/04/18 12/04/18 12/05/18 04:16 04:16 04:48 WBC 15.5 H 11.1 H Hgb MCHC [place] % (Auto) Eos % (Auto) POC ABG pH POC ABG pCO2 POC ABG pO2 Potassium 3.4 L BUN Creatinine Glucose 117 H POC Glucose Calcium 7.8 L Magnesium Total Creatine Kinase C-Reactive Protein 12/05/18 12/05/18 04:48 12:02 WBC Hgb MCHC [place] % (Auto) Eos % (Auto) POC ABG pH POC ABG pCO2 POC ABG pO2 Potassium BUN Creatinine Glucose POC Glucose 61 L Calcium 7.6 L Magnesium Total Creatine Kinase C-Reactive Protein Allied health notes reviewed: nursing
[2018-12-06] MEDS: FLAGYL 500 MG/100 ML 500 MG/100 ML BAG IV SCH ×2 (05:32→14:03)
[2018-12-06] MEDS: CEREBYX IV SCH ×3 (05:33→22:06)
[2018-12-06] MEDS: NACL IV SCH ×3 (05:33→22:06)
[2018-12-06] MEDS: [UNRECOGNIZED DRUG - OTHER] IV SCH ×3 (05:33→22:06)
[2018-12-06] MEDS: VASELINE LIP THERAPY TP PRN (05:35)
[2018-12-06 05:54] LABS: Basophils % (Auto) 0.4 % (0.0-1.8); Eosinophils # (Auto) 0.3 K/mm3 (0.0-0.4); Eosinophils % (Auto) 3.2 % (0.0-4.3); Hematocrit 37.1 % (35.5-45.6); Hemoglobin 12.6 gm/dl (11.8-15.2); Lymphocytes # (Auto) 1.5 K/mm3 (1.2-5.4); Lymphocytes % (Auto) 17.5 % (13.4-35.0); Mean Corpuscular HGB Conc 34 % (32-34); Mean Corpuscular Volume 90 fl (84-94); Monocytes # (Auto) 0.6 K/mm3 (0.0-0.8); Monocytes % (Auto) 6.6 % (0.0-7.3); Platelet Count 176 K/mm3 (140-440); Red Blood Count 4.13 M/mm3 (3.65-5.03); Red Cell Distribution Width 14.3 % (13.2-15.2)
[2018-12-06] MEDS: VIMPAT 100 MG in NACL 0.9% 100 ML IV SCH ×2 (06:01→18:35)
[2018-12-06 06:39] LABS: Alanine Aminotransferase 9 units/L (7-56); Albumin 3.2 g/dL (3.9-5); BUN/Creatinine Ratio 19; Blood Urea Nitrogen 15 mg/dL (9-20); Calcium 7.3 mg/dL (8.4-10.2); Hemolysis Index 9
[2018-12-06] MEDS: VANCOMYCIN/NS 1 GM/250 ML 1 GM/250 ML BAG IV SCH (06:44)
[2018-12-06] MEDS: DUONEB *Not for PRN Use IH SCH ×3 (08:22→19:34)
--- NOTE | 2018-12-06 10:28 | Progress Note ---
Assessment and Plan Assessment and plan: L L PNA Cont Ceftriaxone till discharge Status epilepticus: Controlled Hypotension: Improved TBI: Aspiration precaution] Hypoxia On RA 89 percenr Would have discharged if Home o2 can be arranged today Talked with briefcase sewer---She says probably tomorrow. Debility Probably bed ridden for long time PT eval Discharge planning issues--may go back to assisted living place. Start clear liquids and advance Subjective Date of service: 12/06/18 Principal diagnosis: Acute hypoxemic hypercapnic Resp failure; Status epilepticus; Hypertension Interval history: Doing well No Seizures Afebrile O2 Sat 89 on RA Objective - Constitutional Vitals: Vital Signs - 12hr 12/05/18 12/05/18 12/05/18 22:00 22:48 22:49 Temperature Pulse Rate 81 70 81 Pulse Rate [ Anterior Bilateral] Pulse Rate [ From Monitor] Respiratory 26 H 23 Rate Respiratory Rate [Anterior Bilateral] Blood Pressure 123/51 112/53 O2 Sat by Pulse 94 97 Oximetry 12/05/18 12/06/18 12/06/18 23:00 00:00 01:00 Temperature 98.0 F Pulse Rate 72 74 76 Pulse Rate [ Anterior Bilateral] Pulse Rate [ 79 From Monitor] Respiratory 23 23 25 H Rate Respiratory Rate [Anterior Bilateral] Blood Pressure 112/53 106/58 118/42 O2 Sat by Pulse 98 96 98 Oximetry 12/06/18 12/06/18 12/06/18 03:00 03:09 04:00 Temperature 99.5 F Pulse Rate 70 70 66 Pulse Rate [ Anterior Bilateral] Pulse Rate [ 73 From Monitor] Respiratory 23 22 Rate Respiratory Rate [Anterior Bilateral] Blood Pressure 118/42 114/53 O2 Sat by Pulse 94 98 Oximetry 12/06/18 12/06/18 12/06/18 05:00 06:00 07:00 Temperature Pulse Rate 76 71 75 Pulse Rate [ Anterior Bilateral] Pulse Rate [ From Monitor] Respiratory 31 H 32 H 25 H Rate Respiratory Rate [Anterior Bilateral] Blood Pressure 114/53 130/65 141/64 O2 Sat by Pulse 95 95 95 Oximetry 12/06/18 12/06/18 12/06/18 08:00 08:22 09:00 Temperature 98.3 F Pulse Rate 68 88 Pulse Rate [ 70 Anterior Bilateral] Pulse Rate [ 89 From Monitor] Respiratory 27 H 22 Rate Respiratory 22 Rate [Anterior Bilateral] Blood Pressure 135/64 165/81 O2 Sat by Pulse 96 96 93 Oximetry General appearance: Present: no acute distress, well-nourished - EENT Eyes: PERRL, EOM intact ENT: hearing intact, clear oral mucosa Ears: bilateral: normal - Neck Neck: supple, normal ROM - Respiratory Respiratory effort: normal Respiratory: bilateral: CTA - Breasts Breasts: normal - Cardiovascular Rhythm: regular Heart Sounds: Present: S1 & S2. Absent: gallop, rub Extremities: pulses intact, No edema, normal color, Full ROM - Gastrointestinal General gastrointestinal: Present: soft, non-tender, non-distended, normal bowel sounds Rectal Exam: deferred - Genitourinary Male genitourinary: normal - Integumentary Integumentary: clear, warm, dry - Musculoskeletal Musculoskeletal: 1, strength equal bilaterally - Neurologic Neurologic: moves all extremities - Psychiatric Psychiatric: memory intact, appropriate mood/affect, intact judgment & insight - Allied health notes Allied health notes reviewed: nursing, case management - Labs CBC & Chem 7: 12/06/18 05:30 12/06/18 05:30 Labs: Abnormal lab results 12/05/18 12/05/18 12/06/18 Range/Units 12:02 20:19 05:30 Seg Neutrophils % 72.3 H (40.0-70.0) % Potassium (3.6-5.0) mmol/L Chloride (98-107) mmol/L POC Glucose 61 L 188 H (70-105) Calcium (8.4-10.2) mg/dL Total Protein (6.3-8.2) g/dL Albumin (3.9-5) g/dL 12/06/18 Range/Units 05:30 Seg Neutrophils % (40.0-70.0) % Potassium 3.5 L (3.6-5.0) mmol/L Chloride 108.6 H (98-107) mmol/L POC Glucose (70-105) Calcium 7.3 L (8.4-10.2) mg/dL Total Protein 5.7 L (6.3-8.2) g/dL Albumin 3.2 L (3.9-5) g/dL
--- NOTE | 2018-12-06 10:35 | Progress Note ---
Subjective Date of service: 12/06/18 Principal diagnosis: Acute hypoxemic hypercapnic Resp failure; Status epilepticus; Hypertension Interval history: dilantin level is 19 which is therapeutic seizure control is optimal at this point Objective - Vital Sign Vital Signs - 12hr 12/05/18 12/05/18 12/05/18 22:00 22:48 22:49 Temperature Pulse Rate 81 70 81 Pulse Rate [ Anterior Bilateral] Pulse Rate [ From Monitor] Respiratory 26 H 23 Rate Respiratory Rate [Anterior Bilateral] Blood Pressure 123/51 112/53 O2 Sat by Pulse 94 97 Oximetry 12/05/18 12/06/18 12/06/18 23:00 00:00 01:00 Temperature 98.0 F Pulse Rate 72 74 76 Pulse Rate [ Anterior Bilateral] Pulse Rate [ 79 From Monitor] Respiratory 23 23 25 H Rate Respiratory Rate [Anterior Bilateral] Blood Pressure 112/53 106/58 118/42 O2 Sat by Pulse 98 96 98 Oximetry 12/06/18 12/06/18 12/06/18 03:00 03:09 04:00 Temperature 99.5 F Pulse Rate 70 70 66 Pulse Rate [ Anterior Bilateral] Pulse Rate [ 73 From Monitor] Respiratory 23 22 Rate Respiratory Rate [Anterior Bilateral] Blood Pressure 118/42 114/53 O2 Sat by Pulse 94 98 Oximetry 12/06/18 12/06/18 12/06/18 05:00 06:00 07:00 Temperature Pulse Rate 76 71 75 Pulse Rate [ Anterior Bilateral] Pulse Rate [ From Monitor] Respiratory 31 H 32 H 25 H Rate Respiratory Rate [Anterior Bilateral] Blood Pressure 114/53 130/65 141/64 O2 Sat by Pulse 95 95 95 Oximetry 12/06/18 12/06/18 12/06/18 08:00 08:22 09:00 Temperature 98.3 F Pulse Rate 68 88 Pulse Rate [ 70 Anterior Bilateral] Pulse Rate [ 89 From Monitor] Respiratory 27 H 22 Rate Respiratory 22 Rate [Anterior Bilateral] Blood Pressure 135/64 165/81 O2 Sat by Pulse 96 96 93 Oximetry - Laboratory Findings CBC and BMP: 12/06/18 05:30 12/06/18 05:30 Abnormal Lab Findings: Abnormal Labs 11/30/18 11/30/18 12/02/18 23:41 23:41 06:57 WBC Hgb MCHC 36 H [place] % (Auto) 9.5 H Eos % (Auto) 4.9 H Seg Neutrophils % POC ABG pH POC ABG pCO2 POC ABG pO2 Potassium Chloride BUN 8 L Creatinine 0.7 L Glucose POC Glucose Calcium 7.8 L Magnesium Total Creatine Kinase 427 H C-Reactive Protein Total Protein Albumin 12/02/18 12/02/18 12/02/18 12:24 14:08 14:08 WBC Hgb MCHC [place] % (Auto) Eos % (Auto) Seg Neutrophils % POC ABG pH 7.229 L POC ABG pCO2 59.9 H POC ABG pO2 76 L Potassium Chloride BUN Creatinine Glucose POC Glucose Calcium 8.0 L Magnesium 1.60 L Total Creatine Kinase C-Reactive Protein Total Protein Albumin 12/02/18 12/02/18 12/03/18 19:18 Unknown 07:15 WBC 19.7 H Hgb 15.5 H MCHC 35 H [place] % (Auto) Eos % (Auto) Seg Neutrophils % POC ABG pH 7.349 L POC ABG pCO2 POC ABG pO2 232 H Potassium Chloride BUN Creatinine Glucose POC Glucose Calcium Magnesium Total Creatine Kinase C-Reactive Protein Total Protein Albumin 12/03/18 12/03/18 12/03/18 07:15 08:09 13:55 WBC Hgb MCHC [place] % (Auto) Eos % (Auto) Seg Neutrophils % POC ABG pH POC ABG pCO2 POC ABG pO2 136 H Potassium Chloride BUN Creatinine Glucose 139 H POC Glucose Calcium 7.7 L Magnesium 1.60 L Total Creatine Kinase C-Reactive Protein 14.50 H Total Protein Albumin 12/04/18 12/04/18 12/05/18 04:16 04:16 04:48 WBC 15.5 H 11.1 H Hgb MCHC [place] % (Auto) Eos % (Auto) Seg Neutrophils % POC ABG pH POC ABG pCO2 POC ABG pO2 Potassium 3.4 L Chloride BUN Creatinine Glucose 117 H POC Glucose Calcium 7.8 L Magnesium Total Creatine Kinase C-Reactive Protein Total Protein Albumin 12/05/18 12/05/18 12/05/18 04:48 12:02 20:19 WBC Hgb MCHC [place] % (Auto) Eos % (Auto) Seg Neutrophils % POC ABG pH POC ABG pCO2 POC ABG pO2 Potassium Chloride BUN Creatinine Glucose POC Glucose 61 L 188 H Calcium 7.6 L Magnesium Total Creatine Kinase C-Reactive Protein Total Protein Albumin 12/06/18 12/06/18 05:30 05:30 WBC Hgb MCHC [place] % (Auto) Eos % (Auto) Seg Neutrophils % 72.3 H POC ABG pH POC ABG pCO2 POC ABG pO2 Potassium 3.5 L Chloride 108.6 H BUN Creatinine Glucose POC Glucose Calcium 7.3 L Magnesium Total Creatine Kinase C-Reactive Protein Total Protein 5.7 L Albumin 3.2 L
[2018-12-06] MEDS: HEPARIN SUB-Q SCH ×2 (11:15→22:08)
[2018-12-06] MEDS: D5W IV SCH ×2 (11:16→22:06)
[2018-12-06] MEDS: PROTONIX IV SCH (11:16)
[2018-12-06] MEDS: KEPPRA IV SCH ×2 (11:16→22:06)
[2018-12-06] MEDS: ROCEPHIN/NS 1 GM/50 ML 1 GM/50 ML BAG IV SCH (11:16)
--- NOTE | 2018-12-06 11:51 | Progress Note ---
Assessment and Plan Cultures: Blood culture 12/02/2018 no growth today. Sputum 12/02/2018 normal respiratory prema. 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 Etiology most likely HCAP v/s aspiration. Blood culture 12/02/2018 no growth today. UA neg. 2) Presumed HCAP v/s aspiration: CXR showed left lower lobe infiltra te/atelectasis. Sputum 12/02/2018 normal respiratory prema. 3) Acute encephalopathy: from seizures. CT head showed single large left frontal and temporal craniotomy defect, asymmetry of the lateral ventricles with ex vacuo dilatation of the left lateral ventricle, extensive encephalomalacia in the left hemisphere consistent with old surgery or injury. 4) Acute respiratory failure 5) Status epilecticus 6) Remote PCN allergy: discussed with primary caregiver, remote allergy, >20 years ago, no anaphylaxis. Recommendations: - Discontinue Ceftriaxone - Discontinue Flagyl -Discontinue Vancomycin - start Ceftin 500mg PO BID for 2 days ending 12-08-18 - start Doxycycline 100mg PO BID for 2 days ending 12-08-18 [facility] M: [phone] O:[phone] Subjective Date of service: 12/06/18 Principal diagnosis: Acute hypoxemic hypercapnic Resp failure; Status epilepticus; Hypertension Interval history: Patient seen and examined. Awake, alert, no acute distress. family at bedside. Objective - Exam Narrative Exam: Constitutional: Alert, cooperative. No acute distress Head, Ears, Nose: Normocephalic, atraumatic. External ears, nose normal. Facial asymmetry Eyes: Conjunctivae/corneas clear. No icterus. No ptosis. Neck: Supple, no meningeal signs Oral: no thrush Cardiovascular: S1, S2 normal. Respiratory: Good air entry, clear to auscultation bilaterally GI: Soft, non-tender; bowel sounds normal. No peritoneal signs Musculoskeletal: No pedal edema, no cyanosis. Skin: No rash or abscess Hem/Lymphatic: No palpable cervical or supraclavicular nodes. No lymphangitis Psych: no agitation Neurological: Awake, alert, can follow commands - Constitutional Vitals: Vital Signs Temp Pulse Resp BP Pulse Ox 98.3 F 88 22 165/81 93 12/06/18 08:00 12/06/18 09:00 12/06/18 09:00 12/06/18 09:00 12/06/18 09:00 Temperature -Last 24 Hours Temperature 98.3 F Temperature 99.5 F Temperature 99.5 F Temperature 98.6 F Temperature 98.0 F Temperature 98.5 F Temperature 98.5 F Temperature 97.8 F - Labs CBC & Chem 7: 12/06/18 05:30 12/06/18 05:30 Labs: Abnormal lab results 12/05/18 12/05/18 12/06/18 Range/Units 12:02 20:19 05:30 Seg Neutrophils % 72.3 H (40.0-70.0) % Potassium (3.6-5.0) mmol/L Chloride (98-107) mmol/L POC Glucose 61 L 188 H (70-105) Calcium (8.4-10.2) mg/dL Total Protein (6.3-8.2) g/dL Albumin (3.9-5) g/dL 12/06/18 Range/Units 05:30 Seg Neutrophils % (40.0-70.0) % Potassium 3.5 L (3.6-5.0) mmol/L Chloride 108.6 H (98-107) mmol/L POC Glucose (70-105) Calcium 7.3 L (8.4-10.2) mg/dL Total Protein 5.7 L (6.3-8.2) g/dL Albumin 3.2 L (3.9-5) g/dL
--- NOTE | 2018-12-06 13:11 | Progress Note ---
Assessment and Plan Patient resting on room air. O2 saturation 93%. No complaint of chest pain,shortness of breath or cough.No recent seizure activity. - Patient Problems (1) Recurrent seizures Current Visit: Yes Status: Acute Plan to address problem: Patient is on dilantin,Keppra and ativan. Management as per neurology. (2) Acute encephalopathy Current Visit: No Status: Acute Plan to address problem: Appears some what improved. Management as per primary care. (3) Ileus, postoperative Current Visit: No Status: Acute Plan to address problem: Management as per primary care. (4) Colitis Current Visit: No Status: Acute Plan to address problem: Patient is on metronidazole and vancomycin. (5) Respiratory failure Current Visit: No Status: Chronic Plan to address problem: Patient extubated. Presently resting on room air. Continue S/C Heparin. Subjective Date of service: 12/06/18 Principal diagnosis: Acute hypoxemic hypercapnic Resp failure; Status epilepticus; Hypertension Interval history: Patient resting on room air. O2 saturation 93%. No complaint of chest angelito n,shortness of breath or cough.No recent seizure activity. Objective Vital Signs - 12hr 12/06/18 12/06/18 12/06/18 01:00 03:00 03:09 Temperature Pulse Rate 76 70 70 Pulse Rate [ Anterior Bilateral] Pulse Rate [ From Monitor] Respiratory 25 H 23 Rate Respiratory Rate [Anterior Bilateral] Blood Pressure 118/42 118/42 O2 Sat by Pulse 98 94 Oximetry 12/06/18 12/06/18 12/06/18 04:00 05:00 06:00 Temperature 99.5 F Pulse Rate 66 76 71 Pulse Rate [ Anterior Bilateral] Pulse Rate [ 73 From Monitor] Respiratory 22 31 H 32 H Rate Respiratory Rate [Anterior Bilateral] Blood Pressure 114/53 114/53 130/65 O2 Sat by Pulse 98 95 95 Oximetry 12/06/18 12/06/18 12/06/18 07:00 08:00 08:22 Temperature 98.3 F Pulse Rate 75 68 Pulse Rate [ 70 Anterior Bilateral] Pulse Rate [ 89 From Monitor] Respiratory 25 H 27 H Rate Respiratory 22 Rate [Anterior Bilateral] Blood Pressure 141/64 135/64 O2 Sat by Pulse 95 96 96 Oximetry 12/06/18 12/06/18 12/06/18 09:00 10:00 11:00 Temperature Pulse Rate 88 94 H 80 Pulse Rate [ Anterior Bilateral] Pulse Rate [ From Monitor] Respiratory 22 27 H 27 H Rate Respiratory Rate [Anterior Bilateral] Blood Pressure 165/81 138/55 150/60 O2 Sat by Pulse 93 88 88 Oximetry 12/06/18 12:00 Temperature 98.3 F Pulse Rate 79 Pulse Rate [ Anterior Bilateral] Pulse Rate [ 90 From Monitor] Respiratory 31 H Rate Respiratory Rate [Anterior Bilateral] Blood Pressure 144/65 O2 Sat by Pulse 91 Oximetry Constitutional: no acute distress, alert, other (elderly and chronically ill looking CM with post traumatic scalp changes) Eyes: non-icteric ENT: oropharynx moist Neck: supple, no lymphadenopathy, no JVD Effort: mildly labored Ascultation: Bilateral: diminished breath sounds Percussion: Bilateral: not dull Cardiovascular: regular rate and rhythm Gastrointestinal: normoactive bowel sounds, soft, non-tender, non-distended Integumentary: normal Extremities: no cyanosis, no edema, pink and warm, pulses normal Neurologic: pupils equal and round, other (right hemiparesis, Encephalopathic.) Psychiatric: other (Can not assess.) CBC and BMP: 12/06/18 05:30 12/06/18 05:30 ABG, PT/INR, D-dimer: ABG POC ABG pH 7.387 (7.35-7.45) 12/03/18 11:29 POC ABG pCO2 39.4 (35-45) 12/03/18 11:29 POC ABG pO2 97 (80-105) 12/03/18 11:29 POC ABG HCO3 23.7 12/03/18 11:29 POC ABG Total CO2 25 12/03/18 11:29 POC ABG O2 Sat 97 12/03/18 11:29 Abnormal lab findings: Abnormal Labs 11/30/18 11/30/18 12/02/18 23:41 23:41 06:57 WBC Hgb MCHC 36 H [place] % (Auto) 9.5 H Eos % (Auto) 4.9 H Seg Neutrophils % POC ABG pH POC ABG pCO2 POC ABG pO2 Potassium Chloride BUN 8 L Creatinine 0.7 L Glucose POC Glucose Calcium 7.8 L Magnesium Total Creatine Kinase 427 H C-Reactive Protein Total Protein Albumin 12/02/18 12/02/18 12/02/18 12:24 14:08 14:08 WBC Hgb MCHC [place] % (Auto) Eos % (Auto) Seg Neutrophils % POC ABG pH 7.229 L POC ABG pCO2 59.9 H POC ABG pO2 76 L Potassium Chloride BUN Creatinine Glucose POC Glucose Calcium 8.0 L Magnesium 1.60 L Total Creatine Kinase C-Reactive Protein Total Protein Albumin 12/02/18 12/02/18 12/03/18 19:18 Unknown 07:15 WBC 19.7 H Hgb 15.5 H MCHC 35 H [place] % (Auto) Eos % (Auto) Seg Neutrophils % POC ABG pH 7.349 L POC ABG pCO2 POC ABG pO2 232 H Potassium Chloride BUN Creatinine Glucose POC Glucose Calcium Magnesium Total Creatine Kinase C-Reactive Protein Total Protein Albumin 12/03/18 12/03/18 12/03/18 07:15 08:09 13:55 WBC Hgb MCHC [place] % (Auto) Eos % (Auto) Seg Neutrophils % POC ABG pH POC ABG pCO2 POC ABG pO2 136 H Potassium Chloride BUN Creatinine Glucose 139 H POC Glucose Calcium 7.7 L Magnesium 1.60 L Total Creatine Kinase C-Reactive Protein 14.50 H Total Protein Albumin 12/04/18 12/04/18 12/05/18 04:16 04:16 04:48 WBC 15.5 H 11.1 H Hgb MCHC [place] % (Auto) Eos % (Auto) Seg Neutrophils % POC ABG pH POC ABG pCO2 POC ABG pO2 Potassium 3.4 L Chloride BUN Creatinine Glucose 117 H POC Glucose Calcium 7.8 L Magnesium Total Creatine Kinase C-Reactive Protein Total Protein Albumin 12/05/18 12/05/18 12/05/18 04:48 12:02 20:19 WBC Hgb MCHC [place] % (Auto) Eos % (Auto) Seg Neutrophils % POC ABG pH POC ABG pCO2 POC ABG pO2 Potassium Chloride BUN Creatinine Glucose POC Glucose 61 L 188 H Calcium 7.6 L Magnesium Total Creatine Kinase C-Reactive Protein Total Protein Albumin 12/06/18 12/06/18 05:30 05:30 WBC Hgb MCHC [place] % (Auto) Eos % (Auto) Seg Neutrophils % 72.3 H POC ABG pH POC ABG pCO2 POC ABG pO2 Potassium 3.5 L Chloride 108.6 H BUN Creatinine Glucose POC Glucose Calcium 7.3 L Magnesium Total Creatine Kinase C-Reactive Protein Total Protein 5.7 L Albumin 3.2 L Chest x-ray: report reviewed (Cardiomegaly and elevated hemidiaphragham. Dlated loops of bowl.), image reviewed Allied health notes reviewed: nursing
[2018-12-06] MEDS: CEFTIN PO SCH (22:07)
[2018-12-06] MEDS: VIBRAMYCIN PO SCH (22:08)
[2018-12-07] MEDS: VIMPAT 100 MG in NACL 0.9% 100 ML IV SCH (06:00)
--- NOTE | 2018-12-07 08:31 | Progress Note ---
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 Patient is unable to provide a history, currently intubated. Lives in an assisted living facility. Test [employer]ore Helper reported that he was not at his baseline mental status and that he is usually verbal. In the ED, temp 98.5, HR 107, R 19, BP 129/79. WBC 8.4, Hg 14.9, Plat 218. Creat 0.9. . LFTs normal. CK 427. Blood culture 12/02/2018 no growth today. Sputum 12/02/[address] head showed single large left frontal and temporal craniotomy defect, asymmetry of the lateral ventricles with ex vacuo dilatation of the left lateral ventricle, extensive encephalomalacia in the left hemisphere consistent with old surgery or injury. CXR showed left lower lobe infiltrate/atelectasis. Assessment and plan: L L PNA Cont Ceftriaxone till discharge Status epilepticus: Controlled Hypotension: Improved TBI: Aspiration precaution] Hypoxia On RA 89 percenr Talked with porter sample case---She says probably tomorrow. Debility Probably bed ridden for long time PT eval Discharge planning issues--may go back to assisted living place.if home oxygen is arranged Start clear liquids and advance Subjective Date of service: 12/07/18 Principal diagnosis: Acute hypoxemic hypercapnic Resp failure; Status epilepticus; Hypertension Interval history: Patient seen and examined. No new complaints. No seizures. Objective - Exam Narrative Exam: Constitutional: Well-nourished well-developed. In no distress Head: Normocephalic atraumatic Eyes: Pupils are equal round and reactive to light Nose: No enlarged turbinates, no septal deviation. Mouth: Moist mucous membranes. Neck: Supple no thyromegaly. No bruit. No JVD Heart: Regular rate and rhythm, S1-S2 normal. No rubs murmurs or gallop Lungs: Clear to auscultation bilaterally. no rales or rhonchi Abdomen: Soft, nontender. Bowel sound are present. Extremities: No edema, no cyanosis, no clubbing. Neuro: Alert oriented Oriented x3. No focal sensory or motor deficit. Skin: No rashes or hyperpigmented spots Musculoskeletal system: No joint pain or swelling Hematological: No petechia or subcutanous hemorrhages. Immunological: No multiple septic spots on the skin Lymphatic: No generalized lymphadenopathy Psychiatry: Euthymic. Calm. - Constitutional Vitals: Vital Signs - 12hr 12/06/18 12/06/18 12/06/18 21:00 22:00 23:00 Temperature Pulse Rate 94 H 89 81 Pulse Rate [ From Monitor] Respiratory 22 26 H 30 H Rate Blood Pressure 94/71 103/61 114/54 O2 Sat by Pulse 89 90 91 Oximetry 12/07/18 12/07/18 12/07/18 00:00 01:00 02:00 Temperature 99.0 F Pulse Rate 83 94 H 85 Pulse Rate [ 90 From Monitor] Respiratory 22 24 26 H Rate Blood Pressure 114/54 114/54 114/54 O2 Sat by Pulse 89 85 88 Oximetry 12/07/18 12/07/18 12/07/18 03:00 04:00 05:00 Temperature 99.4 F Pulse Rate 77 81 77 Pulse Rate [ 88 From Monitor] Respiratory 27 H 25 H 26 H Rate Blood Pressure 114/54 114/54 114/54 O2 Sat by Pulse 87 89 89 Oximetry 12/07/18 12/07/18 06:00 07:00 Temperature 98.2 F Pulse Rate 77 Pulse Rate [ From Monitor] Respiratory 27 H Rate Blood Pressure 114/54 O2 Sat by Pulse 88 Oximetry - Labs CBC & Chem 7: 12/06/18 05:30 12/06/18 05:30
[2018-12-07] MEDS: CEREBYX IV SCH (09:22)
[2018-12-07] MEDS: PROTONIX IV SCH (09:22)
[2018-12-07] MEDS: [UNRECOGNIZED DRUG - OTHER] IV SCH (09:22)
[2018-12-07] MEDS: NACL IV SCH (09:22)
[2018-12-07] MEDS: HEPARIN SUB-Q SCH ×2 (09:22→21:43)
[2018-12-07] MEDS: CEFTIN PO SCH (09:23)
[2018-12-07] MEDS: VIBRAMYCIN PO SCH ×2 (09:23→21:45)
[2018-12-07] MEDS: KEPPRA IV SCH (09:23)
[2018-12-07] MEDS: D5W IV SCH (09:23)
[2018-12-07] MEDS: DUONEB *Not for PRN Use IH SCH ×3 (09:47→20:36)
--- NOTE | 2018-12-07 10:36 | Progress Note ---
Assessment and Plan Acute hypoxemic hypercapnic respiratory failure, on mechanical ventilatory support. Status epilepticus. History of seizures. History of traumatic brain injury. Hypertension. Diabetes. Oropharyngeal dysphagia. Leukocytosis with a white count of 19,700 today. Hypomagnesemia. Elevated CPK. - continue supplemental oxygen to keep sats > 90% - continue aspiration precautions - continue AED's and adjust per neuroliogy recommendations - prn BIPAP - agree with discontinuing Levaquin - continue antiinfective's per ID recs (Rocephin) - PT/OT as tolerated - continue systemic steroid taper - continue other care per attending / other consultants .... re-evaluate in am & prn Subjective Date of service: 12/07/18 Principal diagnosis: Acute hypoxemic hypercapnic Resp failure; Status epilepticus; Hypertension Interval history: Patient is seen today for: Acute hypoxemic hypercapnic Resp failure; Status epilepticus; History of seizures; History of traumatic brain injury; Hypertension; Diabetes. Seen and examined at bedside; 24hour events reviewed; nursing and respiratory care staff consulted; no adverse overnight events reported to me; Objective Vital Signs - 12hr 12/06/18 12/07/18 12/07/18 23:00 00:00 01:00 Temperature 99.0 F Pulse Rate 81 83 94 H Pulse Rate [ Anterior Bilateral] Pulse Rate [ 90 From Monitor] Respiratory 30 H 22 24 Rate Respiratory Rate [Anterior Bilateral] Blood Pressure 114/54 114/54 114/54 O2 Sat by Pulse 91 89 85 Oximetry 12/07/18 12/07/18 12/07/18 02:00 03:00 04:00 Temperature 99.4 F Pulse Rate 85 77 81 Pulse Rate [ Anterior Bilateral] Pulse Rate [ 88 From Monitor] Respiratory 26 H 27 H 25 H Rate Respiratory Rate [Anterior Bilateral] Blood Pressure 114/54 114/54 114/54 O2 Sat by Pulse 88 87 89 Oximetry 12/07/18 12/07/18 12/07/18 05:00 06:00 07:00 Temperature 98.2 F Pulse Rate 77 77 Pulse Rate [ Anterior Bilateral] Pulse Rate [ From Monitor] Respiratory 26 H 27 H Rate Respiratory Rate [Anterior Bilateral] Blood Pressure 114/54 114/54 O2 Sat by Pulse 89 88 Oximetry 12/07/18 12/07/18 12/07/18 09:46 09:47 10:02 Temperature Pulse Rate Pulse Rate [ 81 86 Anterior Bilateral] Pulse Rate [ From Monitor] Respiratory Rate Respiratory 20 18 Rate [Anterior Bilateral] Blood Pressure O2 Sat by Pulse 91 Oximetry Constitutional: no acute distress, alert, other (elderly and chronically ill looking CM with post traumatic scalp changes) Eyes: non-icteric ENT: oropharynx moist Neck: supple, no lymphadenopathy, no JVD Effort: mildly labored Ascultation: Bilateral: clear, diminished breath sounds Percussion: Bilateral: not dull Cardiovascular: regular rate and rhythm Gastrointestinal: normoactive bowel sounds, soft, non-tender, non-distended Integumentary: normal Extremities: no cyanosis, no edema, pink and warm, pulses normal Neurologic: pupils equal and round, other (right hemiparesis, Encephalopathic.) Psychiatric: other (Can not assess.) CBC and BMP: 12/06/18 05:30 12/06/18 05:30 ABG, PT/INR, D-dimer: ABG POC ABG pH 7.387 (7.35-7.45) 12/03/18 11:29 POC ABG pCO2 39.4 (35-45) 12/03/18 11:29 POC ABG pO2 97 (80-105) 12/03/18 11:29 POC ABG HCO3 23.7 12/03/18 11:29 POC ABG Total CO2 25 12/03/18 11:29 POC ABG O2 Sat 97 12/03/18 11:29 Abnormal lab findings: Abnormal Labs 11/30/18 11/30/18 12/02/18 23:41 23:41 06:57 WBC Hgb MCHC 36 H [place] % (Auto) 9.5 H Eos % (Auto) 4.9 H Seg Neutrophils % POC ABG pH POC ABG pCO2 POC ABG pO2 Potassium Chloride BUN 8 L Creatinine 0.7 L Glucose POC Glucose Calcium 7.8 L Magnesium Total Creatine Kinase 427 H C-Reactive Protein Total Protein Albumin 12/02/18 12/02/18 12/02/18 12:24 14:08 14:08 WBC Hgb MCHC [place] % (Auto) Eos % (Auto) Seg Neutrophils % POC ABG pH 7.229 L POC ABG pCO2 59.9 H POC ABG pO2 76 L Potassium Chloride BUN Creatinine Glucose POC Glucose Calcium 8.0 L Magnesium 1.60 L Total Creatine Kinase C-Reactive Protein Total Protein Albumin 12/02/18 12/02/18 12/03/18 19:18 Unknown 07:15 WBC 19.7 H Hgb 15.5 H MCHC 35 H [place] % (Auto) Eos % (Auto) Seg Neutrophils % POC ABG pH 7.349 L POC ABG pCO2 POC ABG pO2 232 H Potassium Chloride BUN Creatinine Glucose POC Glucose Calcium Magnesium Total Creatine Kinase C-Reactive Protein Total Protein Albumin 12/03/18 12/03/18 12/03/18 07:15 08:09 13:55 WBC Hgb MCHC [place] % (Auto) Eos % (Auto) Seg Neutrophils % POC ABG pH POC ABG pCO2 POC ABG pO2 136 H Potassium Chloride BUN Creatinine Glucose 139 H POC Glucose Calcium 7.7 L Magnesium 1.60 L Total Creatine Kinase C-Reactive Protein 14.50 H Total Protein Albumin 12/04/18 12/04/18 12/05/18 04:16 04:16 04:48 WBC 15.5 H 11.1 H Hgb MCHC [place] % (Auto) Eos % (Auto) Seg Neutrophils % POC ABG pH POC ABG pCO2 POC ABG pO2 Potassium 3.4 L Chloride BUN Creatinine Glucose 117 H POC Glucose Calcium 7.8 L Magnesium Total Creatine Kinase C-Reactive Protein Total Protein Albumin 12/05/18 12/05/18 12/05/18 04:48 12:02 20:19 WBC Hgb MCHC [place] % (Auto) Eos % (Auto) Seg Neutrophils % POC ABG pH POC ABG pCO2 POC ABG pO2 Potassium Chloride BUN Creatinine Glucose POC Glucose 61 L 188 H Calcium 7.6 L Magnesium Total Creatine Kinase C-Reactive Protein Total Protein Albumin 12/06/18 12/06/18 05:30 05:30 WBC Hgb MCHC [place] % (Auto) Eos % (Auto) Seg Neutrophils % 72.3 H POC ABG pH POC ABG pCO2 POC ABG pO2 Potassium 3.5 L Chloride 108.6 H BUN Creatinine Glucose POC Glucose Calcium 7.3 L Magnesium Total Creatine Kinase C-Reactive Protein Total Protein 5.7 L Albumin 3.2 L Allied health notes reviewed: nursing
--- NOTE | 2018-12-07 11:05 | Progress Note ---
Assessment and Plan Cultures: Blood culture 12/02/2018 no growth today. Sputum 12/02/2018 MRSA . MRSA Culture 12/04/2018: negative MRSA Assessment: 62 y/o male with history of previous traumatic brain injury after mechanical fall in 2013 resulting in a subdural hematoma s/p craniotomy, CVA with some right-sided deficits, seizure disorder and asthma, on chronic steroids; admitted on 11/30/2018 due to multiple consecutive seizures prior to arrival: 1) Sepsis: Resolved, manifested by fever, tachycardia, leukocytosis (on solumedrol). Etiology most likely HCAP v/s aspiration. Blood culture 12/02/2018 no growth today. UA neg. 2) Presumed HCAP v/s aspiration: CXR showed left lower lobe infiltrate/atelectasis. Sputum 12/02/2018 normal respiratory prema. 3) Acute encephalopathy: from seizures. CT head showed single large left frontal and temporal craniotomy defect, asymmetry of the lateral ventricles with ex vacuo dilatation of the left lateral ventricle, extensive encephalomalacia in the left hemisphere consistent with old surgery or injury. 4) Acute respiratory failure 5) Status epilecticus 6) Remote PCN allergy: discussed with primary caregiver, remote allergy, >20 years ago, no anaphylaxis. Recommendations: - discontinue Ceftin 500mg PO BID for 2 days ending 12-08-18 - continue Doxycycline 100mg PO BID for 2 days ending 12-13-18 [facility] M: [phone] O:[phone] Subjective Date of service: 12/07/18 Principal diagnosis: Acute hypoxemic hypercapnic Resp failure; Status epilepticus; Hypertension Interval history: Patient seen and examined. Awake, alert, no acute distress. family at bedside. Objective - Exam Narrative Exam: Constitutional: Alert, cooperative. No acute distress Head, Ears, Nose: Normocephalic, atraumatic. External ears, nose normal. Facial asymmetry Eyes: Conjunctivae/corneas clear. No icterus. No ptosis. Neck: Supple, no meningeal signs Oral: no thrush Cardiovascular: S1, S2 normal. Respiratory: Good air entry, clear to auscultation bilaterally GI: Soft, non-tender; bowel sounds normal. No peritoneal signs Musculoskeletal: No pedal edema, no cyanosis. Skin: No rash or abscess Hem/Lymphatic: No palpable cervical or supraclavicular nodes. No lymphangitis Psych: no agitation Neurological: Awake, alert, can follow commands - Constitutional Vitals: Vital Signs Temp Pulse Resp BP Pulse Ox 98.2 F 86 18 114/54 91 12/07/18 07:00 12/07/18 10:02 12/07/18 10:02 12/07/18 06:00 12/07/18 09:46 Temperature -Last 24 Hours Temperature 98.2 F Temperature 99.4 F Temperature 99.0 F Temperature 98.9 F Temperature 98.5 F Temperature 98.1 F Temperature 98.3 F - Labs CBC & Chem 7: 12/06/18 05:30 12/06/18 05:30
--- NOTE | 2018-12-07 14:15 | Progress Note ---
Assessment and Plan Patient awake.Patient resting on room air. O2 saturation 92%. No complaint of chest pain,shortness of breath or cough.No recent seizure activity. - Patient Problems (1) Recurrent seizures Current Visit: Yes Status: Acute Plan to address problem: Patient is on dilantin,Keppra and ativan. Management as per neurology. (2) Acute encephalopathy Current Visit: No Status: Acute Plan to address problem: Appears some what improved. Patient following simple commands. Management as per primary care. (3) Ileus, postoperative Current Visit: No Status: Acute Plan to address problem: Management as per primary care. (4) Colitis Current Visit: No Status: Acute Plan to address problem: Patient is on metronidazole and vancomycin. (5) Respiratory failure Current Visit: No Status: Chronic Plan to address problem: Patient extubated. Presently resting on room air. Continue S/C Heparin. Subjective Date of service: 12/07/18 Principal diagnosis: Acute hypoxemic hypercapnic Resp failure; Status epilepticus; Hypertension Interval history: Patient awake.Patient resting on room air. O2 saturation 92%. No complaint of chest pain,shortness of breath or cough.No recent seizure activity. Objective Vital Signs - 12hr 12/07/18 12/07/18 12/07/18 03:00 04:00 05:00 Temperature 99.4 F Pulse Rate 77 81 77 Pulse Rate [ Anterior Bilateral] Pulse Rate [ 88 From Monitor] Respiratory 27 H 25 H 26 H Rate Respiratory Rate [Anterior Bilateral] Blood Pressure 114/54 114/54 114/54 O2 Sat by Pulse 87 89 89 Oximetry 12/07/18 12/07/18 12/07/18 06:00 07:00 07:01 Temperature 98.2 F Pulse Rate 77 91 H 77 Pulse Rate [ Anterior Bilateral] Pulse Rate [ From Monitor] Respiratory 27 H 27 H Rate Respiratory Rate [Anterior Bilateral] Blood Pressure 114/54 O2 Sat by Pulse 88 92 Oximetry 12/07/18 12/07/18 12/07/18 08:00 09:00 09:46 Temperature 98.4 F Pulse Rate 75 82 Pulse Rate [ Anterior Bilateral] Pulse Rate [ 90 From Monitor] Respiratory 24 33 H Rate Respiratory Rate [Anterior Bilateral] Blood Pressure 124/79 118/72 O2 Sat by Pulse 91 89 91 Oximetry 12/07/18 12/07/18 12/07/18 09:47 10:00 10:02 Temperature Pulse Rate 86 Pulse Rate [ 81 86 Anterior Bilateral] Pulse Rate [ From Monitor] Respiratory 35 H Rate Respiratory 20 18 Rate [Anterior Bilateral] Blood Pressure 125/81 O2 Sat by Pulse 92 Oximetry 12/07/18 12/07/18 12/07/18 11:00 11:01 12:01 Temperature 98.2 F Pulse Rate 93 H 89 Pulse Rate [ Anterior Bilateral] Pulse Rate [ From Monitor] Respiratory 33 H 31 H Rate Respiratory Rate [Anterior Bilateral] Blood Pressure 126/67 109/69 O2 Sat by Pulse 91 89 Oximetry 12/07/18 12/07/18 13:29 13:46 Temperature Pulse Rate Pulse Rate [ 88 91 H Anterior Bilateral] Pulse Rate [ From Monitor] Respiratory Rate Respiratory 18 20 Rate [Anterior Bilateral] Blood Pressure O2 Sat by Pulse Oximetry Constitutional: no acute distress, alert, other (elderly and chronically ill looking CM with post traumatic scalp changes) Eyes: non-icteric ENT: oropharynx moist Neck: supple, no lymphadenopathy, no JVD Effort: mildly labored Ascultation: Bilateral: diminished breath sounds Percussion: Bilateral: not dull Cardiovascular: regular rate and rhythm Gastrointestinal: normoactive bowel sounds, soft, non-tender, non-distended Integumentary: normal Extremities: no cyanosis, no edema, pink and warm, pulses normal Neurologic: pupils equal and round, other (right hemiparesis, Encephalopathic.) Psychiatric: other (Can not assess.) CBC and BMP: 12/06/18 05:30 12/06/18 05:30 ABG, PT/INR, D-dimer: ABG POC ABG pH 7.387 (7.35-7.45) 12/03/18 11:29 POC ABG pCO2 39.4 (35-45) 12/03/18 11:29 POC ABG pO2 97 (80-105) 12/03/18 11:29 POC ABG HCO3 23.7 12/03/18 11:29 POC ABG Total CO2 25 12/03/18 11:29 POC ABG O2 Sat 97 12/03/18 11:29 Abnormal lab findings: Abnormal Labs 11/30/18 11/30/18 12/02/18 23:41 23:41 06:57 WBC Hgb MCHC 36 H [place] % (Auto) 9.5 H Eos % (Auto) 4.9 H Seg Neutrophils % POC ABG pH POC ABG pCO2 POC ABG pO2 Potassium Chloride BUN 8 L Creatinine 0.7 L Glucose POC Glucose Calcium 7.8 L Magnesium Total Creatine Kinase 427 H C-Reactive Protein Total Protein Albumin 12/02/18 12/02/18 12/02/18 12:24 14:08 14:08 WBC Hgb MCHC [place] % (Auto) Eos % (Auto) Seg Neutrophils % POC ABG pH 7.229 L POC ABG pCO2 59.9 H POC ABG pO2 76 L Potassium Chloride BUN Creatinine Glucose POC Glucose Calcium 8.0 L Magnesium 1.60 L Total Creatine Kinase C-Reactive Protein Total Protein Albumin 12/02/18 12/02/18 12/03/18 19:18 Unknown 07:15 WBC 19.7 H Hgb 15.5 H MCHC 35 H [place] % (Auto) Eos % (Auto) Seg Neutrophils % POC ABG pH 7.349 L POC ABG pCO2 POC ABG pO2 232 H Potassium Chloride BUN Creatinine Glucose POC Glucose Calcium Magnesium Total Creatine Kinase C-Reactive Protein Total Protein Albumin 12/03/18 12/03/18 12/03/18 07:15 08:09 13:55 WBC Hgb MCHC [place] % (Auto) Eos % (Auto) Seg Neutrophils % POC ABG pH POC ABG pCO2 POC ABG pO2 136 H Potassium Chloride BUN Creatinine Glucose 139 H POC Glucose Calcium 7.7 L Magnesium 1.60 L Total Creatine Kinase C-Reactive Protein 14.50 H Total Protein Albumin 12/04/18 12/04/18 12/05/18 04:16 04:16 04:48 WBC 15.5 H 11.1 H Hgb MCHC [place] % (Auto) Eos % (Auto) Seg Neutrophils % POC ABG pH POC ABG pCO2 POC ABG pO2 Potassium 3.4 L Chloride BUN Creatinine Glucose 117 H POC Glucose Calcium 7.8 L Magnesium Total Creatine Kinase C-Reactive Protein Total Protein Albumin 12/05/18 12/05/18 12/05/18 04:48 12:02 20:19 WBC Hgb MCHC [place] % (Auto) Eos % (Auto) Seg Neutrophils % POC ABG pH POC ABG pCO2 POC ABG pO2 Potassium Chloride BUN Creatinine Glucose POC Glucose 61 L 188 H Calcium 7.6 L Magnesium Total Creatine Kinase C-Reactive Protein Total Protein Albumin 03/10/19 03/10/19 05:30 05:30 WBC Hgb MCHC [place] % (Auto) Eos % (Auto) Seg Neutrophils % 72.3 H POC ABG pH POC ABG pCO2 POC ABG pO2 Potassium 3.5 L Ch[place] 108.6 H BUN Creatinine Glucose POC Glucose Calcium 7.3 L Magnesium Total Creatine Kinase C-Reactive Protein Total Protein 5.7 L Albumin 3.2 L Allied health notes reviewed: nursing
[2018-12-07] MEDS: DILANTIN PO SCH ×2 (15:33→21:43)
[2018-12-07] MEDS: KEPPRA PO SCH (21:42)
[2018-12-07] MEDS: VIMPAT PO SCH (21:44)
[2018-12-08] MEDS: DILANTIN PO SCH ×2 (06:26→13:05)
[2018-12-08] MEDS: DUONEB *Not for PRN Use IH SCH (07:27)
[2018-12-08] MEDS ORDERED: PROTONIX PO SCH (10:00)
--- NOTE | 2018-12-08 10:34 | Progress Note ---
<BENY CARIAS - Last Filed: 12/08/18 14:18> Assessment and Plan Cultures: Blood culture 12/02/2018 no growth today. Sputum 12/02/2018 MRSA . MRSA Culture 12/04/2018: negative MRSA Assessment: 62 y/o male with history of previous traumatic brain injury after mechanical fall in 2013 resulting in a subdural hematoma s/p craniotomy, CVA with some right-sided deficits, seizure disorder and asthma, on chronic steroids; admitted on 11/30/2018 due to multiple consecutive seizures prior to arrival: 1) Sepsis: Resolved, manifested by fever, tachycardia, leukocytosis (on solumedrol). Etiology most likely HCAP v/s aspiration. Blood culture 12/02/2018 no growth today. UA neg. 2) Presumed HCAP v/s aspiration: CXR showed left lower lobe infiltrate/atelectasis. Sputum 12/02/2018 normal respiratory prema. 3) Acute encephalopathy: from seizures. CT head showed single large left frontal and temporal craniotomy defect, asymmetry of the lateral ventricles with ex vacuo dilatation of the left lateral ventricle, extensive encephalomalacia in the left hemisphere consistent with old surgery or injury. 4) Acute respiratory failure 5) Status epilecticus 6) Remote PCN allergy: discussed with primary caregiver, remote allergy, >20 years ago, no anaphylaxis. Recommendations: -continue Doxycycline 100 mg PO BID x 7 days ending 12/13/2018. Beny Carias NP [facility] M: [phone] O:[phone] Subjective Date of service: 12/08/18 Principal diagnosis: Acute hypoxemic hypercapnic Resp failure; Status epilepticus; Hypertension Interval history: Patient seen and examined. Awake, alert, no acute distress. family at bedside. Objective - Exam Narrative Exam: Constitutional: Alert, cooperative. No acute distress Head, Ears, Nose: Normocephalic, atraumatic. External ears, nose normal. Facial asymmetry Eyes: Conjunctivae/corneas clear. No icterus. No ptosis. Neck: Supple, no meningeal signs Oral: no thrush Cardiovascular: S1, S2 normal. Respiratory: Good air entry, clear to auscultation bilaterally GI: Soft, non-tender; bowel sounds normal. No peritoneal signs Musculoskeletal: No pedal edema, no cyanosis. Skin: No rash or abscess Hem/Lymphatic: No palpable cervical or supraclavicular nodes. No lymphangitis Psych: no agitation Neurological: Awake, alert, can follow commands - Constitutional Vitals: Vital Signs Temp Pulse Resp BP Pulse Ox 98.6 F 82 20 125/73 94 12/08/18 08:00 12/08/18 07:42 12/08/18 07:42 12/08/18 07:01 12/08/18 07:43 Temperature -Last 24 Hours Temperature 98.6 F Temperature 97.7 F Temperature 98.7 F Temperature 99.4 F Temperature 98.8 F Temperature 98.5 F Temperature 98.2 F - Labs CBC & Chem 7: 12/06/18 05:30 12/06/18 05:30 <SANDRA MANSFIELD - Last Filed: 12/08/18 18:27> Assessment and Plan I have personally seen and evaluated this patient on 12/08/2018 with Beny Carias NP. I have reviewed and confirmed the medical history, physical examination findings, pertinent lab data, microbiologic data & personally reviewed the imaging. I evaluated the risk-benefit, side effect profile of anti-microbials and formulated the assessment and plan. Objective - Constitutional Vitals: Vital Signs Temp Pulse Resp BP Pulse Ox 98.6 F 82 25 H 138/100 90 12/08/18 08:00 12/08/18 12:00 12/08/18 12:00 12/08/18 12:00 12/08/18 12:00 Temperature -Last 24 Hours Temperature 98.6 F Temperature 97.7 F Temperature 98.7 F Temperature 99.4 F - Labs CBC & Chem 7: 12/06/18 05:30 12/06/18 05:30
[2018-12-08] MEDS: HEPARIN SUB-Q SCH (10:59)
[2018-12-08] MEDS: KEPPRA PO SCH (10:59)
[2018-12-08] MEDS: VIMPAT PO SCH (11:00)
[2018-12-08] MEDS: VIBRAMYCIN PO SCH (11:00)
--- NOTE | 2018-12-08 11:14 | Discharge Summary ---
Providers - Providers Date of Admission: 12/01/18 02:22 Attending physician: GIOVANY LEI MD 12/01/18 06:00 Consult to Physician [CONS] Routine Comment: Consulting Provider: EN RICH Physician Instructions: Reason For Exam: RECURRENT SEIZURE ATTACK 12/02/18 13:32 Consult to Physician [CONS] Routine Comment: Consulting Provider: RALPH LOPEZ Physician Instructions: I notified and she ok'd Reason For Exam: CCM 12/02/18 15:03 Consult to Dietitian/Nutrition [CONS] Routine Physician Instructions: Reason For Exam: Reason for Consult: Evaluate nutritional intake 12/02/18 17:31 Consult to Physician [CONS] Routine Comment: Consulting Provider: FAUSTINO THOMAS Physician Instructions: I notified Reason For Exam: new pneumonia 12/03/18 12:46 Physical Therapy Evaluation and Treat [CONS] Routine Comment: Reason For Exam: Evaluate and treat Primary care physician: CATIA GUERRA Hospitalization Condition: Serious Hospital course: 63-year-old man who presented with multiple seizures at home. Patient has a known history of subdural hematoma status post craniotomy, history of CVA with right-sided deficits. The patient was treated with antibiotics, history with antiepileptics. He is being discharged on antibiotics per infectious disease recommendation. He was initially intubated due to status epilepticus, he was successfully extubated and was weaned off oxygen. The day of discharge the patient was on room air. He was seen by neurology, who optimized his medications. Diagnoses Status epilepticus Acute respiratory failure requiring mechanical ventilator less than 96 hours Acute metabolic encephalopathy Disposition: [id number]/[place]-03 [facility] Time spent for discharge: 33 mins Core Measure Documentation - Palliative Care Palliative Care/ Comfort Measures: Not Applicable - Core Measures Any of the following diagnoses?: none Exam - Constitutional Vitals: Temp Pulse Resp BP Pulse Ox 98.6 F 82 20 125/73 94 12/08/18 08:00 12/08/18 07:42 12/08/18 07:42 12/08/18 07:01 12/08/18 07:43 General appearance: Present: no acute distress, well-nourished - EENT Eyes: Present: PERRL ENT: hearing intact, clear oral mucosa - Neck Neck: Present: supple, normal ROM - Respiratory Respiratory effort: normal Respiratory: bilateral: CTA - Cardiovascular Heart Sounds: Present: S1 & S2. Absent: rub, click - Extremities Extremities: pulses symmetrical, No edema Peripheral Pulses: within normal limits - Abdominal General gastrointestinal: Present: soft, non-tender, non-distended, normal bowel sounds Male genitourinary: Present: normal - Integumentary Integumentary: Present: clear, warm, dry - Musculoskeletal Musculoskeletal: gait normal, strength equal bilaterally - Psychiatric Psychiatric: appropriate mood/affect, intact judgment & insight - Neurologic Neurologic: CNII-XII intact, moves all extremities Plan Follow up with: TANYA LINDA MD [Staff Physician] - 3-5 Days Prescriptions: Phenytoin [Dilantin] 100 mg PO Q8HR #90 capsule.er Doxycycline [Vibramycin CAP] 100 mg PO BID #10 capsule Lacosamide [Vimpat] 100 mg PO Q12HR #60 tablet
[2018-12-08 12:44] VITALS: BP 138/100
== END 2018-12-08 13:29 | DRG 100 ==
LOC: ED 23:13 → 4A 12-01 02:22 → CC1 12-02 13:41 → IMCU 12-04 11:26
PROVIDERS: ADMIT Internal Medicine; ATTEND Internal Medicine
PROC: 5A1935Z Respiratory Ventilation, Less than 24 Consecutive Hours (ICD-10-PCS; principal; 2018-12-02)
PROC: 0BH17EZ Insertion of Endotracheal Airway into Trachea, Via Natural or Artificial Opening (ICD-10-PCS; 2018-12-02)
PROC: 4A033R1 Measurement of Arterial Saturation, Peripheral, Percutaneous Approach (ICD-10-PCS; 2018-12-03)
DX: G40.901 Epilepsy, unspecified, not intractable, with status epilepticus (principal); A41.9 Sepsis, unspecified organism; J96.02 Acute respiratory failure with hypercapnia; J96.01 Acute respiratory failure with hypoxia; J69.0 Pneumonitis due to inhalation of food and vomit; I69.351 Hemiplegia and hemiparesis following cerebral infarction affecting right dominant side; K56.7 Ileus, unspecified; E87.2 Acidosis; E11.9 Type 2 diabetes mellitus without complications; E83.42 Hypomagnesemia; K52.9 Noninfective gastroenteritis and colitis, unspecified; R13.12 Dysphagia, oropharyngeal phase; J44.9 Chronic obstructive pulmonary disease, unspecified; Z60.2 Problems related to living alone; I10 Essential (primary) hypertension; Z88.0 Allergy status to penicillin; Z88.8 Allergy status to other drugs, medicaments and biological substances; Z91.010 Allergy to peanuts; Z79.899 Other long term (current) drug therapy; Z87.820 Personal history of traumatic brain injury; Z79.84 Long term (current) use of oral hypoglycemic drugs
CPT/HCPCS: 36415; 36600; 70450; 71045; 80048; 80053; 80185; 80202; 81001; 82140; 82550; 82803; 82962; 83735; 84484; 85025; 85027; 86140; 87040; 87070; 87076; 87116; 87186; 87205; 93005; 93010; 94002; 94003; 94640; 94760; G0378; C9113; C9254; J0330; J0696; J1644; J1720; J1953; J1956; J2060; J2250; J3370; J3475; J7030; J7040; J7050; J7512; Q2009

== ENCOUNTER 2021-12-18 10:10 | Emergency (ER) | payer MEDICARE ==
--- NOTE | 2021-12-18 11:01 | Electrocardiograph Report ---
[facility] Test Date: 2021-12-18 Test Time: 10:44:37 Pat Name: GARY MARY III Department: Room: Gender: M [employer] And Manager: LONNIE : 1955 Requested By: ED DOC Order Number: [id number] Reading MD: Jake Finney Measurements Intervals [place] Rate: 41 P: 28 NM: 183 QRS: -10 QRSD: 111 T: 258 QT: 547 QTc: 454 Interpretive Statements Sinus bradycardia Repol abnrm, global ischemia, diffuse leads No previous ECG available for comparison Electronically Signed On 12-18-2021 11:00:57 EDT by Jake Finney
[2021-12-18] MEDS ORDERED: ATROPINE 0.1% (1 MG/10 ML) CARDIAC SYRINGE ONE (11:21)
[2021-12-18] MEDS ORDERED: cefTRIAXone/NS 1 GM/50 ML 1 GM/50 ML BAG IV ONE (11:21)
[2021-12-18] MEDS ORDERED: SODIUM CHLORIDE 0.9% 1000 ML IV SOLN IV ONE (11:21)
[2021-12-18] MEDS ORDERED: ATROPINE 1 MG/ML VIAL IV ONE (11:25)
[2021-12-18 11:57] LABS: Basophils % (Auto) 0.9 % (0.0-1.8); Eosinophils # (Auto) 0.3 K/mm3 (0.0-0.4); Eosinophils % (Auto) 6.7 % (0.0-4.3); Hemoglobin 13.1 gm/dl (11.8-15.2); Lymphocytes # (Auto) 1.1 K/mm3 (1.2-5.4); Lymphocytes % (Auto) 22.9 % (13.4-35.0); Mean Corpuscular HGB Conc 33 % (32-34); Mean Corpuscular Volume 90 fl (84-94); Monocytes # (Auto) 0.3 K/mm3 (0.0-0.8); Monocytes % (Auto) 6.8 % (0.0-7.3); Platelet Count 152 K/mm3 (140-440); Red Blood Count 4.46 M/mm3 (3.65-5.03); Red Cell Distribution Width 14.7 % (13.2-15.2)
[2021-12-18 12:20] LABS: BUN/Creatinine Ratio 17; Blood Urea Nitrogen 15 mg/dL (9-20); Calcium 8.2 mg/dL (8.4-10.2); Hemolysis Index 5
[2021-12-18 12:25] LABS: Alanine Aminotransferase 13 units/L (7-56); BUN/Creatinine Ratio 17; Blood Urea Nitrogen 15 mg/dL (9-20); Calcium 8.2 mg/dL (8.4-10.2); Hemolysis Index 6
--- NOTE | 2021-12-18 12:27 | XRay Report ---
XR chest 1V ap INDICATION / CLINICAL INFORMATION: sepsis. COMPARISON: 12/03/2018 FINDINGS: SUPPORT DEVICES: Unchanged. HEART / MEDIASTINUM: Unchanged. LUNGS / PLEURA: Left hemidiaphragm is elevated with stomach or large bowel to the stool underlying th e diaphragm. Left basilar scarring. Right basilar opacities also likely related to scarring or atelec tasis. No acute findings. No pneumothorax. ADDITIONAL FINDINGS: No significant additional findings. IMPRESSION: 1. No acute airspace disease identified. 2. Persistent left hemidiaphragm elevation. Signer Name: Trevor Lopez MD Signed: 12/18/2021 12:22 PM Workstation Name: [id number]
[2021-12-18] MEDS ORDERED: POTASSIUM CHLORIDE ER 20 MEQ TAB PO ONE (12:28)
[2021-12-18 12:34] LABS: C-Reactive Protein 0.3 mg/dL (0.00-1.30)
[2021-12-18 12:46] LABS: Mucus,Urine FEW /HPF
[2021-12-18 13:02] LABS: Bilirubin,Urine Negative (Negative); Color,Urine Yellow (Yellow)
[2021-12-18 13:03] LABS: Blood,Urine Negative (Negative)
[2021-12-18] MEDS: POTASSIUM CHLORIDE 10 MEQ 10 MEQ/100 ML BAG IV SCH ×2 (14:04→15:10)
--- NOTE | 2021-12-18 16:13 | Emergency Department Report ---
ED Altered Mental Status HPI - General Chief Complaint: Altered Mental Status Stated Complaint: AMS PUI?: No Time Seen by Provider: 12/18/21 11:20 Source: family, EMS Mode of arrival: Stretcher Limitations: Altered Mental Status - History of Present Illness Initial Comments: PT ARRIVING FROM [facility] AMS. 90/PALP. X1 HOUR. BGL 270. HX TBI - R SIDE DEFICITS. 22G L HAND. MD Complaint: altered mental status, confusion -: Gradual, days(s) Severity: moderate Context: unknown Associated Symptoms: chest pain, malaise, foul smelling urine. denies: denies other symptoms, cough, diaphoresis, fever/chills, headaches, nausea/vomiting, seizure - Related Data Home Medications Medication Instructions Recorded Confirmed Last Taken Acetaminophen [Acetaminophen 8 650 mg PO Q6H PRN 10/18/17 12/01/18 Unknown Hour] Transderm-Scop 1.5 mg TD Q3D PRN 03/07/18 12/01/18 Unknown levETIRAcetam [Keppra] 2,000 mg PO QAM 12/01/18 12/01/18 Unknown Previous Rx's Medication Instructions Recorded Last Taken Type Docusate Sodium [Colace CAP] 100 mg PO BID PRN #60 capsule 10/12/17 Unknown Rx Famotidine [Pepcid] 20 mg PO BID #30 tablet 10/12/17 03/06/18 Rx hydrALAZINE [Apresoline TAB] 100 mg PO Q4HR PRN #60 tab 10/12/17 Unknown Rx polyethylene glycoL 3350 [Miralax 17 gm PO QDAY #60 packet 10/12/17 03/06/18 Rx 3350] Baclofen [Lioresal] 10 mg PO TID #90 tablet 03/11/18 Unknown Rx levETIRAcetam [Keppra TAB] 2,000 mg PO QHS 30 Days tablet 03/11/18 Unknown Rx DOXYCYCLINE Hyclate [Vibramycin 100 mg PO BID #10 capsule 12/08/18 Unknown Rx CAP] Lacosamide [Vimpat] 100 mg PO Q12HR #60 tablet 12/08/18 Unknown Rx Phenytoin [Dilantin] 100 mg PO Q8HR #90 capsule.er 12/08/18 Unknown Rx Sulfamethoxazole/Trimethoprim 1 each PO BID #10 12/18/21 Unknown Rx [Bactrim DS TAB] cephALEXin [Keflex] 500 mg PO Q12HR #14 cap 12/18/21 Unknown Rx Allergies Allergy/AdvReac Type Severity Reaction Status Date / Time Penicillins Allergy Unknown Verified 12/18/21 10:14 chocolate flavor AdvReac Rash Verified 12/18/21 10:14 peanut AdvReac Rash Verified 12/18/21 10:14 ED Review of Systems ROS: Stated complaint: AMS Other details as noted in HPI ED Past Medical Hx - Past Medical History Hx Hypertension: Yes Hx CVA: Yes (right sided weakness) Hx Congestive Heart Failure: No Hx Diabetes: Yes Hx Deep Vein Thrombosis: No Hx Liver Disease: No Hx Renal Disease: No Hx Arthritis: Yes Hx Seizures: No Hx Asthma: Yes Hx COPD: Yes Hx HIV: No Additional medical history: Patient is not a good historian. Lives alone. Subdural hematoma - Surgical History Hx Pacemaker: No Hx Internal Defibrillator: No Additional Surgical History: craniotomy, tracheostomy - Social History Smoking Status: Never Smoker - Medications Home Medications: Home Medications Medication Instructions Recorded Confirmed Last Taken Type Docusate Sodium [Colace CAP] 100 mg PO BID PRN #60 capsule 10/12/17 12/01/18 Unknown Rx Famotidine [Pepcid] 20 mg PO BID #30 tablet 10/12/17 12/01/18 03/06/18 Rx hydrALAZINE [Apresoline TAB] 100 mg PO Q4HR PRN #60 tab 10/12/17 12/01/18 Unknown Rx polyethylene glycoL 3350 [Miralax 17 gm PO QDAY #60 packet 10/12/17 12/01/18 03/06/18 Rx 3350] Acetaminophen [Acetaminophen 8 650 mg PO Q6H PRN 10/18/17 12/01/18 Unknown History Hour] Transderm-Scop 1.5 mg TD Q3D PRN 03/07/18 12/01/18 Unknown History Baclofen [Lioresal] 10 mg PO TID #90 tablet 03/11/18 12/01/18 Unknown Rx levETIRAcetam [Keppra TAB] 2,000 mg PO QHS 30 Days tablet 03/11/18 12/01/18 Unknown Rx levETIRAcetam [Keppra] 2,000 mg PO QAM 12/01/18 12/01/18 Unknown History DOXYCYCLINE Hyclate [Vibramycin 100 mg PO BID #10 capsule 12/08/18 Unknown Rx CAP] Lacosamide [Vimpat] 100 mg PO Q12HR #60 tablet 12/08/18 Unknown Rx Phenytoin [Dilantin] 100 mg PO Q8HR #90 capsule.er 12/08/18 Unknown Rx Sulfamethoxazole/Trimethoprim 1 each PO BID #10 12/18/21 Unknown Rx [Bactrim DS TAB] cephALEXin [Keflex] 500 mg PO Q12HR #14 cap 12/18/21 Unknown Rx ED Physical Exam - General Limitations: Altered Mental Status General appearance: lethargic, cachectic - Eye Eye exam: Present: normal appearance - ENT ENT exam: Present: mucous membranes moist - Neck Neck exam: Present: normal inspection - Respiratory Respiratory exam: Present: normal lung sounds bilaterally. Absent: respiratory distress - Cardiovascular Cardiovascular Exam: Present: normal rhythm, bradycardia. Absent: systolic murmur, diastolic murmur, rubs, gallop - GI/Abdominal GI/Abdominal exam: Present: soft, normal bowel sounds - Rectal Rectal exam: Present: deferred - Extremities Exam Extremities exam: Present: normal inspection - Back Exam Back exam: Present: normal inspection - Neurological Exam Neurological exam: Present: altered - Skin Skin exam: Present: dry. Absent: rash ED Course Vital Signs 12/18/21 12:13 Pulse Rate 59 L Respiratory 14 Rate Blood Pressure 98/50 [Right] - Lab Data Result diagrams: 12/18/21 11:03 12/18/21 11:25 Lab Results 12/18/21 12/18/21 12/18/21 Range/Units 11:03 11:03 11:12 WBC 4.9 (4.5-11.0) K/mm3 RBC 4.46 (3.65-5.03) M/mm3 Hgb 13.1 (11.8-15.2) gm/dl Hct 40.0 (35.5-45.6) % MCV 90 (84-94) fl MCH 29 (28-32) pg MCHC 33 (32-34) % RDW 14.7 (13.2-15.2) % Plt Count 152 (140-440) K/mm3 Lymph % (Auto) 22.9 (13.4-35.0) % Nelson % (Auto) 6.8 (0.0-7.3) % Eos % (Auto) 6.7 H (0.0-4.3) % Baso % (Auto) 0.9 (0.0-1.8) % Lymph # (Auto) 1.1 L (1.2-5.4) K/mm3 Nelson # (Auto) 0.3 (0.0-0.8) K/mm3 Eos # (Auto) 0.3 (0.0-0.4) K/mm3 Baso # (Auto) 0.0 (0.0-0.1) K/mm3 Seg Neutrophils % 62.7 (40.0-70.0) % Seg Neutrophils # 3.1 (1.8-7.7) K/mm3 Sodium 141 (137-145) mmol/L Potassium 3.0 L (3.6-5.0) mmol/L Chloride 99.6 (98-107) mmol/L Carbon Dioxide 29 (22-30) mmol/L Anion Gap 15 mmol/L BUN 15 (9-20) mg/dL Creatinine 0.9 (0.8-1.3) mg/dL Estimated GFR > 60 ml/min BUN/Creatinine Ratio 17 % Glucose 122 H (75-100) mg/dL POC Glucose 111 H (70-105) mg/dL Lactic Acid (0.7-2.0) mmol/L Calcium 8.2 L (8.4-10.2) mg/dL Total Bilirubin (0.1-1.2) mg/dL AST (5-40) units/L ALT (7-56) units/L Alkaline Phosphatase (35-129) units/L Troponin T (0.00-0.029) ng/mL C-Reactive Protein (0.00-1.30) mg/dL NT-Pro-B Natriuret Pep (0-900) pg/mL Total Protein (6.3-8.2) g/dL Albumin (3.9-5) g/dL Albumin/Globulin Ratio % Urine Color (Yellow) Urine Turbidity (Clear) Urine pH (5.0-7.0) Ur Specific [place] (1.003-1.030) Urine Protein (Negative) mg/dL Urine Glucose (UA) (Negative) mg/dL Urine Ketones (Negative) mg/dL Urine Blood (Negative) Urine Nitrite (Negative) Ur Reducing Substances Urine Bilirubin (Negative) Urine Ictotest Urine Urobilinogen (<2.0) mg/dL Ur Leukocyte Esterase (Negative) Urine WBC (Auto) (0.0-6.0) /HPF Urine RBC (Auto) (0.0-6.0) /HPF Urine Mucus /HPF 12/18/21 12/18/21 12/18/21 Range/Units 11:25 11:25 11:25 WBC (4.5-11.0) K/mm3 RBC (3.65-5.03) M/mm3 Hgb (11.8-15.2) gm/dl Hct (35.5-45.6) % MCV (84-94) fl MCH (28-32) pg MCHC (32-34) % RDW (13.2-15.2) % Plt Count (140-440) K/mm3 Lymph % (Auto) (13.4-35.0) % Nelson % (Auto) (0.0-7.3) % Eos % (Auto) (0.0-4.3) % Baso % (Auto) (0.0-1.8) % Lymph # (Auto) (1.2-5.4) K/mm3 Nelson # (Auto) (0.0-0.8) K/mm3 Eos # (Auto) (0.0-0.4) K/mm3 Baso # (Auto) (0.0-0.1) K/mm3 Seg Neutrophils % (40.0-70.0) % Seg Neutrophils # (1.8-7.7) K/mm3 Sodium 143 (137-145) mmol/L Potassium 3.0 L (3.6-5.0) mmol/L Chloride 100.7 (98-107) mmol/L Carbon Dioxide 30 (22-30) mmol/L Anion Gap 15 mmol/L BUN 15 (9-20) mg/dL Creatinine 0.9 (0.8-1.3) mg/dL Estimated GFR > 60 ml/min BUN/Creatinine Ratio 17 % Glucose 117 H (75-100) mg/dL POC Glucose (70-105) mg/dL Lactic Acid 1.50 (0.7-2.0) mmol/L Calcium 8.2 L (8.4-10.2) mg/dL Total Bilirubin 0.50 (0.1-1.2) mg/dL AST 14 (5-40) units/L ALT 13 (7-56) units/L Alkaline Phosphatase 93 (35-129) units/L Troponin T < 0.010 (0.00-0.029) ng/mL C-Reactive Protein 0.30 (0.00-1.30) mg/dL NT-Pro-B Natriuret Pep 1232 H (0-900) pg/mL Total Protein 5.9 L (6.3-8.2) g/dL Albumin 4.0 (3.9-5) g/dL Albumin/Globulin Ratio 2.1 % Urine Color (Yellow) Urine Turbidity (Clear) Urine pH (5.0-7.0) Ur Specific [place] (1.003-1.030) Urine Protein (Negative) mg/dL Urine Glucose (UA) (Negative) mg/dL Urine Ketones (Negative) mg/dL Urine Blood (Negative) Urine Nitrite (Negative) Ur Reducing Substances Urine Bilirubin (Negative) Urine Ictotest Urine Urobilinogen (<2.0) mg/dL Ur Leukocyte Esterase (Negative) Urine WBC (Auto) (0.0-6.0) /HPF Urine RBC (Auto) (0.0-6.0) /HPF Urine Mucus /HPF 12/18/21 12/18/21 Range/Units 14:19 Unknown WBC (4.5-11.0) K/mm3 RBC (3.65-5.03) M/mm3 Hgb (11.8-15.2) gm/dl Hct (35.5-45.6) % MCV (84-94) fl MCH (28-32) pg MCHC (32-34) % RDW (13.2-15.2) % Plt Count (140-440) K/mm3 Lymph % (Auto) (13.4-35.0) % Nelson % (Auto) (0.0-7.3) % Eos % (Auto) (0.0-4.3) % Baso % (Auto) (0.0-1.8) % Lymph # (Auto) (1.2-5.4) K/mm3 Nelson # (Auto) (0.0-0.8) K/mm3 Eos # (Auto) (0.0-0.4) K/mm3 Baso # (Auto) (0.0-0.1) K/mm3 Seg Neutrophils % (40.0-70.0) % Seg Neutrophils # (1.8-7.7) K/mm3 Sodium (137-145) mmol/L Potassium (3.6-5.0) mmol/L Chloride (98-107) mmol/L Carbon Dioxide (22-30) mmol/L Anion Gap mmol/L BUN (9-20) mg/dL Creatinine (0.8-1.3) mg/dL Estimated GFR ml/min BUN/Creatinine Ratio % Glucose (75-100) mg/dL POC Glucose (70-105) mg/dL Lactic Acid 0.60 L (0.7-2.0) mmol/L Calcium (8.4-10.2) mg/dL Total Bilirubin (0.1-1.2) mg/dL AST (5-40) units/L ALT (7-56) units/L Alkaline Phosphatase (35-129) units/L Troponin T (0.00-0.029) ng/mL C-Reactive Protein (0.00-1.30) mg/dL NT-Pro-B Natriuret Pep (0-900) pg/mL Total Protein (6.3-8.2) g/dL Albumin (3.9-5) g/dL Albumin/Globulin Ratio % Urine Color Yellow (Yellow) Urine Turbidity Slightly cloudy (Clear) Urine pH 6.0 (5.0-7.0) Ur Specific [place] 1.010 (1.003-1.030) Urine Protein 30 mg/dl (Negative) mg/dL Urine Glucose (UA) Negative (Negative) mg/dL Urine Ketones Negative (Negative) mg/dL Urine Blood Negative (Negative) Urine Nitrite Negative (Negative) Ur Reducing Substances Not Reportable Urine Bilirubin Negative (Negative) Urine Ictotest Not Reportable Urine Urobilinogen 2.0 (<2.0) mg/dL Ur Leukocyte Esterase Moderate (Negative) Urine WBC (Auto) 132.0 H (0.0-6.0) /HPF Urine RBC (Auto) 2.0 (0.0-6.0) /HPF Urine Mucus Few /HPF - Radiology Data Radiology results: report reviewed - Medical Decision Making atropine given HR imrpoved, fluids given sepsis work up BP imrpoved back to normal became more alert and back to basline abx given Critical care attestation.: If time is entered above; I have spent that time in minutes in the direct care of this critically ill patient, excluding procedure time. ED Disposition Clinical Impression: Weakness, UTI (urinary tract infection), Hypokalemia Disposition: [facility] Is pt being admited?: No Does the pt Need Aspirin: No Condition: Stable Referrals: PRIMARY CARE, [Primary Care Provider] - 3-5 Days
[2021-12-18 17:35] VITALS: BP 118/79
== END 2021-12-18 17:33 ==
LOC: ED 10:10
DX: N39.0 Urinary tract infection, site not specified (principal); R53.1 Weakness; E87.6 Hypokalemia; I10 Essential (primary) hypertension; Z86.73 Personal history of transient ischemic attack (TIA), and cerebral infarction without residual deficits; E11.9 Type 2 diabetes mellitus without complications; M19.90 Unspecified osteoarthritis, unspecified site; J45.909 Unspecified asthma, uncomplicated; Z91.02 Food additives allergy status; Z91.010 Allergy to peanuts; Z88.0 Allergy status to penicillin
CPT/HCPCS: 36415; 71045; 80048; 80053; 81001; 82140; 82962; 83880; 84145; 84484; 85025; 86140; 87040; 93005; 96365; 96366; 96375; 99284; J0461; J0696; J3480; J7030; Q0162